=== PATIENT | male | born 1945 | race African-American/Black ===

== ENCOUNTER 2017-07-22 08:03 | Inpatient (IN) ==
[~2017-07-22 08:03] MED LIST: ASPIRIN 325 MG TABLET PO ONE; DIAZEPAM 5 MG TABLET PO ONE; MAGNESIUM SULF RIDER 2 GM in PREMIX 1 EACH IV PRN; POTASSIUM CHLORIDE RIDER 10 MEQ in PREMIX 1 EACH IV PRN; diphenhydrAMINE CAP 25 MG CAPSULE PO ONE
[2017-07-22] MEDS ORDERED: diphenhydrAMINE CAP 25 MG CAPSULE ONE (10:12)
[2017-07-22] MEDS ORDERED: DIAZEPAM 5 MG TABLET ONE (10:12)
[2017-07-22] MEDS: SODIUM CHLORIDE 0.9% 1,000 ML IV SCH (10:15)
--- NOTE | 2017-07-22 10:33 | XRay Report ---
XR chest 1V portable Indication: Respiratory preprocedure evaluation Comparison: 10 March 2008 Findings: The heart and mediastinum are normal in size and configuration. The pulmonary vascularity is normal in caliber. No lung infiltrates, effusions, pneumothorax or other abnormality is demonstrated. Impression: Normal chest x-ray PROCEDURE INTERPRETED AT [facility] DEPARTMENT OF RADIOLOGY Final Report Signed by: Dr. Cash Parker
[2017-07-22] MEDS ORDERED: NITROGLYCERIN DRIP 50 MG/250 ML BOTTLE IV ONE (11:46)
[2017-07-22] MEDS ORDERED: VERAPAMIL 5 MG/2 ML VIAL ONE (11:46)
[2017-07-22] MEDS ORDERED: LIDOCAINE 1% 20 ML VIAL ONE (11:46)
[2017-07-22] MEDS ORDERED: HEPARIN/NACL 0.9% 2 UNITS/ML 500 ML IV ONE ×2 (11:46→11:49)
[2017-07-22] MEDS ORDERED: HYDROmorphone 2 MG/1 ML VIAL ONE (11:57)
[2017-07-22] MEDS ORDERED: MIDAZOLAM 2 MG/2 ML VIAL ONE (11:57)
[2017-07-22] MEDS ORDERED: ENOXAPARIN 30 MG/0.3 ML SYRINGE ONE (12:11)
[2017-07-22] MEDS ORDERED: NITROGLYCERIN SL 0.4 MG TABLET SL PRN (12:25)
[2017-07-22] MEDS ORDERED: Tadalafil [Cialis] 5 MG PO PRN (12:25)
[2017-07-22] MEDS ORDERED: SODIUM CHLORIDE 0.9% 1,000 ML IV SCH (12:30)
--- NOTE | 2017-07-22 12:34 | Cardiac Catheterization ---
Date of Procedure:: 07/22/17 Procedure: CLINICAL HISTORY: Please see the scanned history and physical. The patient has multiple cardiac risk factors with an abnormal stress test and is undergoing cardiac catheterization at this time for definitive coronary assessment possible revascularization. PROCEDURES PERFORMED: 1. Right radial percutaneous arteriotomy 2. Left heart catheterization 3. Resting hemodynamics 4. Left ventriculography. 5. Coronary arteriography 6. Hemoband placement 7. Selective left subclavian angiogram. DESCRIPTION OF PROCEDURE: After obtaining informed consent, the patient was taken to the bottle labeler, prepped and draped in the usual sterile manner. We accessed the right radial artery using modified Seldinger technique in the usual fashion. We placed a 6-German slim sheath without difficulty. We then used a Tig catheter to engage the right coronary and left main coronary arteries to perform angiography in multiple orthogonal views. We also used this catheter to perform angiography of the left subclavian artery. There were no problems or complications during the procedure. We then used an angled pigtail catheter to perform a left heart catheterization with left ventriculogram and pressure measurement in the usual fashion. After removing the catheter, we placed a HemoBand and removed the sheath without difficulty. There were no problems during the case. HEMODYNAMICS: Please see the accompanying data sheet. CORONARIES: The left main coronary artery is a large-caliber vessel which trifurcates into the left anterior descending left circumflex and ramus intermedius branches. There is a distal 60% left main stenosis. The left circumflex coronary artery is a moderate-sized vessel which gives off a very high first obtuse marginal branch and moderate-sized second obtuse marginal branch and a small to moderate size third obtuse marginal branch. There appears to be significant stenosis in the proximal segment of the first obtuse marginal branch but this vessel was quite small. There are diffuse luminal irregularities of up to 30-40% throughout the circumflex system. The superior branch of the third obtuse marginal appears to have a 60-70% stenosis proximally. The ramus intermedius is a moderate size branch which bifurcates. There appears to be a 50-60% stenosis proximally. The left anterior descending is a moderate to large caliber vessel which gives off 2 moderate-sized diagonal branches. There are mild luminal irregularities in the LAD system but I do not see any significant focal obstruction and the distal vessel appears to be a good surgical target. The right coronary artery is a very large vessel which appears somewhat ectatic. There is a highly complex 90% stenosis proximally. There is diffuse severe disease through the proximal to mid segment of the vessel of up to 75-80 % stenosis. The posterior descending artery and posterior lateral branch appear to be good surgical targets. Left subclavian artery: This is a large vessel. There are mild luminal irregularities. The left internal mammary artery appears to be a large vessel which should be a good surgical conduit. LEFT VENTRICULOGRAPHY: Left ventriculogram shows left ventricular ejection fraction of approximately 60% with normal regional wall motion. IMPRESSION: 1. Significant left main and severe right coronary artery disease as described above. 2. Preserved left ventricular systolic function. 3. Normal left subclavian/left internal mammary artery. 4. History of hypertension, diabetes, and hyperlipidemia. PLAN: I think the patient will be best served coronary artery bypass surgery. I am going to discuss the case with cardiothoracic surgery and the patient. In the meantime we will continue medical management. Anesthesia: minimal conscious sedation Surgeon / Physician: Mike Guaman Estimated blood loss: minimal Condition: stable Disposition: floor - Medications / Follow-up
[2017-07-22 15:01] LABS: Calcium 8.8 MG/DL (8.5-10.1); Osmolality,Calculated 271.8 MOS/KG (273-304); Potassium 4.2 MMOL/L (3.5-5.1)
[2017-07-22 15:06] LABS: PT Patient Result 10.9 SECS
[2017-07-23] MEDS: SODIUM CHLORIDE 0.9% 1,000 ML IV SCH ×3 (06:08→12:01)
--- NOTE | 2017-07-23 06:25 | Cardiothoracic Progress Note ---
Cardiothoracic Subjective Interval history: Patient is a 72-year-old man with significant coronary disease by cardiac catheterization yesterday. He has been having symptoms of substernal chest discomfort which have been increasing over the past several weeks. Coronary bypass surgery has been recommended by Dr. Guaman and I agree completely with this recommendation. Plan is for surgery on Friday and I have discussed this with the patient and he is agreeable with proceeding. Exam (Progress Note) - Constitutional Vitals: Period Temp Pulse Resp BP Sys/Baltazar Pulse Ox Last 24 Hr 97.0 F-98.7 F 20- 16-18 113-164/60-75 93-100 Result/EKG - Labs CBC & BMP: 07/22/17 14:24 Labs: Laboratory Results - last 24 hr 07/22/17 07/22/17 07/22/17 14:24 14:24 14:24 INR 1.0 PT Patient/Control Mix 10.9 Circ Anticoag PTT 32.3 Sodium 137 Potassium 4.2 Chloride 106 Carbon Dioxide 24 Anion Gap 11.2 BUN 12 Creatinine 0.90 GFR Calculation 110 BUN/Creatinine Ratio 13.00 Glucose 81 Calculated Osmolality 271.8 L Calcium 8.8 Magnesium 2.0
[2017-07-23] MEDS ORDERED: DEXTROSE 50% 25 GM/50 ML VIAL IV PRN (06:26)
[2017-07-23] MEDS ORDERED: GLUCAGON 1 MG VIAL IM PRN (06:26)
[2017-07-23 06:42] LABS: ABG Base Excess 0.9 MMOL/L (-2.5-2.5); ABG HCO3 25.1 MMOL/L (20-26); ABG Oxygen Saturation 94.7 % (95-100); ABG PCO2 40.4 MM HG (35-48); ABG PH 7.409 (7.35-7.45); ABG PO2 74.3 MM HG (80-95); ABG TCO2 21.8 MMOL/L (23-27)
--- NOTE | 2017-07-23 07:38 | XRay Report ---
2 view chest. Indication: Coronary artery disease. Comparison: July 22, 2017. The heart is normal in size. The pulmonary vasculature is normal. There is a calcified granuloma at the left lung base. No consolidation, pneumothorax, or pleural effusion. Degenerative changes of the spinal column. Impression: Evidence of previous granulomatous disease. No acute abnormality. PROCEDURE INTERPRETED AT [facility] DEPARTMENT OF RADIOLOGY Final Report Signed by: Dr. Lazara Villarreal
--- NOTE | 2017-07-23 08:06 | EKG Report ---
Stationary ECG Study 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
[2017-07-23 08:34] LABS: Basophils % 0.4 % (0.0-0.8); Eosinophils # 0.2 10*3/uL (0.0-0.87); Eosinophils % 3.1 % (0.00-10.9); Hematocrit 47.1 VOL% (42.0-52.0); Immature Granulocytes % 0.2 %; Immature Granulocytes Absolute 0.01 #; Lymphocytes # 1.8 10*3/uL (1.4-4.0); Lymphocytes % 36.5 % (21.2-54.2); Mean Corpuscular Hemoglobin 30 PG (27-34); Mean Corpuscular Volume 88.5 FL (87-102); Monocytes # 0.5 10*3/uL (0.11-0.8); Monocytes % 10.6 % (1.7-12.7); Neutrophils # 2.4 10*3/uL (1.4-7.4); Neutrophils % 49.2 % (38.7-73.9); Platelet Count 183 T/CUMM (130-400); Red Blood Count 5.32 MC/CUMM (3.8-5.5); Red Cell Distribution Width 13.9 % (9.3-17.3); White Blood Count 4.9 T/CUMM (4-12)
[2017-07-23] MEDS: LISINOPRIL 20 MG TABLET PO SCH (08:52)
[2017-07-23] MEDS: ATORVASTATIN 40 MG TABLET PO SCH (08:52)
[2017-07-23] MEDS: MULTIVITAMIN (CENTRUM) TABLET PO SCH (08:52)
[2017-07-23] MEDS: amLODIPine 10 MG TABLET PO SCH (08:52)
[2017-07-23] MEDS: ASPIRIN 325 MG TABLET PO SCH (08:52)
[2017-07-23] MEDS: CHLORHEXIDINE 0.12% ORAL RINSE 60 ML BOTTLE SWISH/SPIT SCH ×2 (08:53→21:57)
[2017-07-23 08:59] LABS: Albumin 3.7 G/DL (3.4-5.0); Bilirubin,Total 1.3 MG/DL (0.2-1.0); Calcium 9.2 MG/DL (8.5-10.1); Osmolality,Calculated 275.7 MOS/KG (273-304); Potassium 4.4 MMOL/L (3.5-5.1); Total Protein 7.1 G/DL (6.4-8.3)
--- NOTE | 2017-07-23 11:39 | Cardiology Progress Note ---
<Jayda Parrish E - Last Filed: 07/23/17 11:40> Assessment and Plan - Time spent with patient Time spent with patient: Less than 30 minutes (1) Coronary artery disease Status: Acute Assessment and plan: See plan of care listed below. Current Visit: Yes (2) Hypertension Status: Chronic Assessment and plan: See plan of care listed below. Current Visit: Yes (3) HLD (hyperlipidemia) Status: Chronic Assessment and plan: See plan of care listed below. Current Visit: Yes (4) Diabetes mellitus Status: Chronic Assessment and plan: See plan of care listed below. Current Visit: Yes Cardiology - PN: Subj Interval history: Certified Hand Therapist: Dr. Guaman SUMMARY: Mr. Arvizu is a 72 year old male who was admitted as an outpatient on 07/22/17 for left heart catheterization due to symptoms of exertional angina and abnormal nuclear stress test suggesting cardiac ischemia. He has a history of hypertension, hyperlipidemia, and diabetes. Heart catheterization on 07/22/17 revealed significant left main and severe right coronary artery disease with preserved left ventricular systolic function and normal left subclavian/left internal mammary artery. CV surgery was consulted to see him. Recent echocardiogram done on 07/16/17 revealed EF 55%, normal diastolic function, mild LVH, trace MR, trace MA. JULY 23, 2017 UPDATE: Mr. Arvizu is doing well this morning. He is planned for surgery on Friday with Dr. Parekh. Labs and vital signs are stable at this time. He denies complaints of chest pain or shortness of breath. Continue aspirin, OSVALDO, statin. Will start low dose beta karley with hold parameters. He has been in sinus rhythm with rates in the 60s. Right radial cath site is without bleeding or hematoma, pulse 3+. Dr. Martinez to follow with further plan and addendum. ASSESSMENT/PLAN: 1. CORONARY ARTERY DISEASE - Heart catheterization on 07/22/17 revealed significant left main and severe right coronary artery disease with preserved left ventricular systolic function and normal left subclavian/left internal mammary artery. CV surgery was consulted to see him and he is planned for surgery on Friday. Continue aspirin, OSVALDO, statin. Will start low dose beta karley with hold parameters. 2. HYPERTENSION - Currently well controlled. Will continue to monitor and adjust accordingly. 3. HYPERLIPIDEMIA - Continue lipid lowering agent. Will check lipid panel in AM. 4. DIABETES MELLITUS - Continue to hold Metformin following cath. He has been started on accuchecks ACHS with sliding scale coverage. Exam (Progress Note) - Constitutional Vitals: Period Temp Pulse Resp BP Sys/Baltazar Pulse Ox Last 24 Hr 97.5 F-98.7 F 60-70 16-18 113-164/60-75 93-100 Exam: General appearance: Pleasant and cooperative. Overweight, no acute distress. Head exam: Present: normal inspection, normocephalic, atraumatic. Absent: hematoma, laceration Eye exam: Present: EOMI. Absent: conjunctival injection, nystagmus, periorbital swelling, scleral icterus, laceration to eyelids Pupils: Present: PERRL. Absent: constricted, dilated, fixed, irregular, unequal ENT exam: Present: normal exam, normal external ear exam Neck exam: Present: normal inspection. Absent: lymphadenopathy, meningismus, tenderness, thyromegaly, carotid bruit Respiratory exam: Present: clear to auscultation bilaterally. Absent: accessory muscle use, chest wall tenderness, rales, rhonchi, wheezing. Cardiovascular exam: Present: regular rate and rhythm, systolic murmur. Absent : gallop, JVD, rubs GI/Abdominal exam: Present: normal bowel sounds, soft. Absent: distended, firm , guarding, hernia, mass, tenderness, rebound. Extremities exam: Present: normal inspection, normal capillary refill. Upper extremity pulses 2+. Lower extremity pulses 2+. Absent: calf tenderness, edema Right wrist: Dressing dry and intact. No bleeding or hematoma at site. Right radial pulse 3+. Musculoskeletal: Present: No Fluid Collection, No Pain, Normal Range of Motion Back exam: Present: normal inspection. Absent: muscle spasm, vertebral tenderness Neurological exam: Present: alert, oriented X3, grossly intact without resting or essential tremor Psychiatric exam: Present: normal affect, normal mood Skin exam: Present: normal color, warm, dry, intact. Absent: cyanosis, diaphoretic, rash, urticaria Result/EKG - Labs CBC & BMP: 07/23/17 08:28 07/23/17 08:28 Lab Results: I have reviewed the past 24 hour labs Labs: Laboratory Results - last 24 hr 07/22/17 07/22/17 07/22/17 14:24 14:24 14:24 WBC RBC Hgb Hct MCV MCH MCHC RDW Plt Count MPV Neut % (Auto) Lymph % (Auto) Garrett % (Auto) Eos % (Auto) Baso % (Auto) Neut # (Auto) Lymph # (Auto) Garrett # (Auto) Eos # (Auto) Baso # (Auto) Immature Gran % Nucleated RBC % Immature Gran # Nucleated RBCs # Immature Plt Fraction INR 1.0 PT Patient/Control Mix 10.9 Circ Anticoag PTT 32.3 ABG pH ABG pCO2 ABG pO2 ABG HCO3 ABG Total CO2 ABG O2 Saturation ABG Base Excess Sodium 137 Potassium 4.2 Chloride 106 Carbon Dioxide 24 Anion Gap 11.2 BUN 12 Creatinine 0.90 GFR Calculation 110 BUN/Creatinine Ratio 13.00 Glucose 81 POC Glucose Calculated Osmolality 271.8 L Calcium 8.8 Magnesium 2.0 Total Bilirubin AST ALT Alkaline Phosphatase Total Protein Albumin Globulin Albumin/Globulin Ratio 07/23/17 07/23/17 07/23/17 06:38 08:14 08:28 WBC 4.9 RBC 5.32 Hgb 16.0 Hct 47.1 MCV 88.5 MCH 30 MCHC 34.0 RDW 13.9 Plt Count 183 MPV 11.0 Neut % (Auto) 49.2 Lymph % (Auto) 36.5 Garrett % (Auto) 10.6 Eos % (Auto) 3.1 Baso % (Auto) 0.4 Neut # (Auto) 2.4 Lymph # (Auto) 1.8 Garrett # (Auto) 0.5 Eos # (Auto) 0.2 Baso # (Auto) 0.0 Immature Gran % 0.2 Nucleated RBC % 0.0 Immature Gran # 0.01 Nucleated RBCs # 0.00 Immature Plt Fraction 0.0 INR PT Patient/Control Mix Circ Anticoag PTT ABG pH 7.409 ABG pCO2 40.4 ABG pO2 74.3 L ABG HCO3 25.1 ABG Total CO2 21.8 L ABG O2 Saturation 94.7 L ABG Base Excess 0.9 Sodium Potassium Chloride Carbon Dioxide Anion Gap BUN Creatinine GFR Calculation BUN/Creatinine Ratio Glucose POC Glucose 135 H Calculated Osmolality Calcium Magnesium Total Bilirubin AST ALT Alkaline Phosphatase Total Protein Albumin Globulin Albumin/Globulin Ratio 07/23/17 08:28 WBC RBC Hgb Hct MCV MCH MCHC RDW Plt Count MPV Neut % (Auto) Lymph % (Auto) Garrett % (Auto) Eos % (Auto) Baso % (Auto) Neut # (Auto) Lymph # (Auto) Garrett # (Auto) Eos # (Auto) Baso # (Auto) Immature Gran % Nucleated RBC % Immature Gran # Nucleated RBCs # Immature Plt Fraction INR PT Patient/Control Mix Circ Anticoag PTT ABG pH ABG pCO2 ABG pO2 ABG HCO3 ABG Total CO2 ABG O2 Saturation ABG Base Excess Sodium 138 Potassium 4.4 Chloride 104 Carbon Dioxide 28 Anion Gap 10.4 BUN 11 Creatinine 0.90 GFR Calculation 112 BUN/Creatinine Ratio 12.00 Glucose 130 H POC Glucose Calculated Osmolality 275.7 Calcium 9.2 Magnesium Total Bilirubin 1.30 H AST 21 ALT 34 Alkaline Phosphatase 69 Total Protein 7.1 Albumin 3.7 Globulin 3.4 Albumin/Globulin Ratio 1.0 L - EKG EKG results: interpreted by me, sinus rhythm Quality Measures - VTE Contraindication to Pharmacological VTE Prophylaxis: High Risk of Bleeding <Cecelia Martinez - Last Filed: 07/23/17 15:16> Assessment and Plan (1) Coronary artery disease Status: Acute Current Visit: Yes (2) Hypertension Status: Chronic Current Visit: Yes (3) HLD (hyperlipidemia) Status: Chronic Current Visit: Yes (4) Diabetes mellitus Status: Chronic Current Visit: Yes (5) Unspecified sleep apnea Status: Acute Current Visit: Yes Cardiology - PN: Subj Interval history: Mr. Arvizu is seen and examined today. His patient Dr. Guaman schedule for coronary bypass grafting. I will discontinue his Cialis. He has no complaints and is doing quite well. I reviewed his films has severe diffuse right coronary disease distal left main disease and also some circumflex disease. The patient is asymptomatic at this time. His hypertension is well controlled. He is on a statin and aspirin. Exam (Progress Note) - Constitutional Vitals: Period Temp Pulse Resp BP Sys/Baltazar Pulse Ox Last 24 Hr 97.5 F-98.7 F 60-70 16-18 113-164/62-80 93-100 Exam: S1-S2 no gallop. Lungs are clear extremities are unremarkable cath site looks good in the right radial artery remainder as above Result/EKG - Labs CBC & BMP: 07/23/17 08:28 07/23/17 08:28 Labs: Laboratory Results - last 24 hr 07/22/17 07/23/17 07/23/17 14:24 06:38 08:14 WBC RBC Hgb Hct MCV MCH MCHC RDW Plt Count MPV Neut % (Auto) Lymph % (Auto) Garrett % (Auto) Eos % (Auto) Baso % (Auto) Neut # (Auto) Lymph # (Auto) Garrett # (Auto) Eos # (Auto) Baso # (Auto) Immature Gran % Nucleated RBC % Immature Gran # Nucleated RBCs # Immature Plt Fraction Circ Anticoag PTT 32.3 ABG pH 7.409 ABG pCO2 40.4 ABG pO2 74.3 L ABG HCO3 25.1 ABG Total CO2 21.8 L ABG O2 Saturation 94.7 L ABG Base Excess 0.9 Sodium Potassium Chloride Carbon Dioxide Anion Gap BUN Creatinine GFR Calculation BUN/Creatinine Ratio Glucose POC Glucose 135 H Calculated Osmolality Calcium Total Bilirubin AST ALT Alkaline Phosphatase Total Protein Albumin Globulin Albumin/Globulin Ratio 07/23/17 07/23/17 07/23/17 08:28 08:28 12:00 WBC 4.9 RBC 5.32 Hgb 16.0 Hct 47.1 MCV 88.5 MCH 30 MCHC 34.0 RDW 13.9 Plt Count 183 MPV 11.0 Neut % (Auto) 49.2 Lymph % (Auto) 36.5 Garrett % (Auto) 10.6 Eos % (Auto) 3.1 Baso % (Auto) 0.4 Neut # (Auto) 2.4 Lymph # (Auto) 1.8 Garrett # (Auto) 0.5 Eos # (Auto) 0.2 Baso # (Auto) 0.0 Immature Gran % 0.2 Nucleated RBC % 0.0 Immature Gran # 0.01 Nucleated RBCs # 0.00 Immature Plt Fraction 0.0 Circ Anticoag PTT ABG pH ABG pCO2 ABG pO2 ABG HCO3 ABG Total CO2 ABG O2 Saturation ABG Base Excess Sodium 138 Potassium 4.4 Chloride 104 Carbon Dioxide 28 Anion Gap 10.4 BUN 11 Creatinine 0.90 GFR Calculation 112 BUN/Creatinine Ratio 12.00 Glucose 130 H POC Glucose 144 H Calculated Osmolality 275.7 Calcium 9.2 Total Bilirubin 1.30 H AST 21 ALT 34 Alkaline Phosphatase 69 Total Protein 7.1 Albumin 3.7 Globulin 3.4 Albumin/Globulin Ratio 1.0 L
--- NOTE | 2017-07-23 14:16 | Sleep Medicine Consult ---
Assessment and Plan (1) Unspecified sleep apnea Status: Acute Assessment and plan: Mr. Arvizu has some symptoms suggestive for obstructive sleep apnea. I reviewed SCOTT as well as the testing and treatments that are recommended. Given his history of not only hypertension and diabetes but also ischemic heart disease, I recommend further evaluation to rule out any underlying sleep disorder as this could contribute to worsening of his health. He verbalized understanding and does wish to proceed with testing. I will order an HSAT for tonight and follow up tomorrow with those results. Current Visit: Yes History of Present Illness Chief complaint: hx of snoring History of present illness: Mr. Arvizu is a 72 year old male who was admitted for outpatient heart catheterization on July 22. His findings were consistent for ischemic heart disease and he is scheduled for coronary artery bypass grafting on Friday. Sleep medicine was consulted after positive screening for sleep apnea. He had a score of 5 out of 8 on the stop bang sleep questionnaire. He is accompanied today by his granddaughter who is at his bedside. He is a pleasant male sitting upright on the sofa. He admits to long history of snoring but denies ever awakening with feelings of shortness of breath or gasping for air. He is able to sleep supine or on one pillow and denies any orthopnea. He typically goes to bed around 11 PM and awakens at 6:30 AM. Throughout the night , he will typically awaken only 1 hour 2 times to urinate. He is able to return to sleep quickly. Each morning, he is up he awakens refreshed and denies any fatigue or sleepiness throughout the day. He has a normal [place] sleepiness score of 7. He lives alone and admits to being very "active" throughout the day. He has never required daily naps but occasionally will "rest his eyes" for a few minutes. He has no known history of sleep disorders in his family. His medical history is significant for ischemic heart disease, hypertension, diabetes and hyperlipidemia. He denies any chest pain or discomfort since his heart catheterization yesterday. Home Medications Medication Instructions Recorded Confirmed Type Amlodipine/Atorvastatin 1 each PO DAILY 07/21/17 07/22/17 History [Amlodipine-Atorvast 10-40 mg] Aspirin Tab 325 mg PO DAILY 07/21/17 07/22/17 History Empagliflozin [Jardiance] 25 mg PO DAILY 07/21/17 07/22/17 History Folic Acid/Multivit-Min/Lutein 1 tablet PO DAILY 07/21/17 07/22/17 History [Centrum Silver Chew Tab] Lisinopril 20 mg PO DAILY 07/21/17 07/22/17 History Metformin HCl [Glucophage] 1,000 mg PO BID 07/21/17 07/22/17 History Nitroglycerin Sl Tab [Nitrostat] 0.4 mg SL Q5M PRN 07/21/17 07/22/17 History Tadalafil [Cialis] 5 mg PO DAILY PRN 07/21/17 07/22/17 History Allergies Allergy/AdvReac Type Severity Reaction Status Date / Time No Known Allergies Allergy Verified 06/19/15 09:32 - Constitutional Constitutional: Absent: daytime sleepiness, fatigue, headache(s), stops breathing during sleep - EENT Nose, mouth and throat: Absent: nasal congestion, sinus pressure - Cardiovascular Cardiovascular: Present: chest pain at rest, dyspnea on exertion. Absent: edema , radiating jaw, neck or arm pain, orthopnea, palpitations - Respiratory Respiratory: Present: snoring. Absent: wheezing, pain on inspiration - Gastrointestinal Gastrointestinal: Present: heartburn. Absent: abdominal pain, bloating, constipation, diarrhea - Genitourinary Genitourinary: Present: urinary frequency (1-2 per night) - Musculoskeletal Musculoskeletal: Present: arthralgias. Absent: joint swelling, muscle weakness - Neurological Neurological: Absent: convulsions, dizziness, memory loss - Psychiatric Psychiatric: Absent: anxiety, depression Exam (Pulmonay) H&P - Constitutional Vitals: Period Temp Pulse Resp BP Sys/Baltazar Pulse Ox Last 24 Hr 97.5 F-98.7 F 60-70 16-18 113-164/60-80 93-100 General appearance: normal weight - Head Head exam: Present: normocephalic, atraumatic - Eye Pupils: Present: ROSE - ENT ENT exam: Present: other (Mallampati class III/ Neck circ 18") - Expanded ENT Exam ENT Exam Throat exam: Absent: post pharyngeal edema, post pharyngeal erythema - Neck Neck exam: Absent: lymphadenopathy, thyromegaly - Respiratory Respiratory exam: Present: clear to auscultation bilaterally. Absent: rhonchi, wheezes - Cardiovascular Cardiovascular exam: Present: regular rate and rhythm, systolic murmur. Absent : gallop, rubs - GI/Abdominal GI/Abdominal exam: Present: normal bowel sounds, soft. Absent: distended, tenderness - Extremities Exam Extremities exam: Present: normal capillary refill, full ROM. Absent: edema - Neurological Exam Neurological exam: Present: alert, oriented X3, normal gait - Psychiatric Psychiatric exam: Present: normal affect, normal mood. Absent: anxious - Skin Skin exam: Present: warm, dry Medical,Surgical,& Family Hx - Medical History Cardio: History of: Hypertension Neurology: No history of: Seizures Endocrine: History of: Diabetes Mellitus (NIDDM), Dyslipidemia - Surgical History Cardiac Surgeries: Sugical HX of: Cardiac Catheterization HEENT Surgeries: Surgical HX of: Eye Surgery Orthopedic Surgeries: Surgical HX of;: Orthopedic Surgery (RIGHT TOTAL KNEE/ LEFT KNEE SCOPE, CARPAL TUNNEL), Total Knee Replacement - Social History Smoking Status: Former smoker Frequency of Alcohol Use: Occasionally Type of Drug Use: None Results - Labs CBC & BMP: 07/23/17 08:28 07/23/17 08:28 Quality Measures - VTE Contraindication to Pharmacological VTE Prophylaxis: High Risk of Bleeding
[2017-07-23] MEDS: INSULIN LISPRO 100 UNIT/ML SUBCUT SCH ×2 (15:54→21:56)
[2017-07-24 04:40] LABS: Basophils % 0.6 % (0.0-0.8); Eosinophils # 0.2 10*3/uL (0.0-0.87); Eosinophils % 3.5 % (0.00-10.9); Hematocrit 43.8 VOL% (42.0-52.0); Hemoglobin 14.9 GM/DL (14.0-18.0); Immature Granulocytes % 0.2 %; Immature Granulocytes Absolute 0.01 #; Lymphocytes # 2.1 10*3/uL (1.4-4.0); Lymphocytes % 39.9 % (21.2-54.2); Mean Corpuscular Hemoglobin 30 PG (27-34); Mean Corpuscular Volume 87.4 FL (87-102); Mean Platelet Volume 11.5 FL (9.6-12.0); Monocytes # 0.6 10*3/uL (0.11-0.8); Monocytes % 11.4 % (1.7-12.7); Neutrophils # 2.3 10*3/uL (1.4-7.4); Neutrophils % 44.4 % (38.7-73.9); Platelet Count 178 T/CUMM (130-400); Red Blood Count 5.01 MC/CUMM (3.8-5.5); Red Cell Distribution Width 13.6 % (9.3-17.3); White Blood Count 5.2 T/CUMM (4-12)
[2017-07-24 05:07] LABS: Calcium 8.7 MG/DL (8.5-10.1); Magnesium 2.1 MG/DL (1.8-2.4); Osmolality,Calculated 281.4 MOS/KG (273-304); Potassium 4.6 MMOL/L (3.5-5.1)
[2017-07-24 05:50] LABS: Risk Ratio 2.75
--- NOTE | 2017-07-24 06:16 | Cardiothoracic Progress Note ---
Cardiothoracic Subjective Interval history: Patient is ready for surgery Friday morning. Exam (Progress Note) - Constitutional Vitals: Period Temp Pulse Resp BP Sys/Baltazar Pulse Ox Last 24 Hr 97.5 F-98.9 F 64-86 18-18 124-148/62-80 97-98 Result/EKG - Labs CBC & BMP: 07/24/17 03:47 07/24/17 03:47 Labs: Laboratory Results - last 24 hr 07/23/17 07/23/17 07/23/17 06:38 08:14 08:28 WBC 4.9 RBC 5.32 Hgb 16.0 Hct 47.1 MCV 88.5 MCH 30 MCHC 34.0 RDW 13.9 Plt Count 183 MPV 11.0 Neut % (Auto) 49.2 Lymph % (Auto) 36.5 [place] % (Auto) 10.6 Eos % (Auto) 3.1 Baso % (Auto) 0.4 Neut # (Auto) 2.4 Lymph # (Auto) 1.8 [place] # (Auto) 0.5 Eos # (Auto) 0.2 Baso # (Auto) 0.0 Immature Gran % 0.2 Nucleated RBC % 0.0 Immature Gran # 0.01 Nucleated RBCs # 0.00 Immature Plt Fraction 0.0 ABG pH 7.409 ABG pCO2 40.4 ABG pO2 74.3 L ABG HCO3 25.1 ABG Total CO2 21.8 L ABG O2 Saturation 94.7 L ABG Base Excess 0.9 Sodium Potassium Chloride Carbon Dioxide Anion Gap BUN Creatinine GFR Calculation BUN/Creatinine Ratio Glucose POC Glucose 135 H Calculated Osmolality Calcium Magnesium Total Bilirubin AST ALT Alkaline Phosphatase Total Protein Albumin Globulin Albumin/Globulin Ratio Triglycerides Cholesterol LDL Cholesterol VLDL Cholesterol HDL Cholesterol Heart Disease Risk Ratio 07/23/17 07/23/17 07/23/17 08:28 12:00 15:30 WBC RBC Hgb Hct MCV MCH MCHC RDW Plt Count MPV Neut % (Auto) Lymph % (Auto) [place] % (Auto) Eos % (Auto) Baso % (Auto) Neut # (Auto) Lymph # (Auto) [place] # (Auto) Eos # (Auto) Baso # (Auto) Immature Gran % Nucleated RBC % Immature Gran # Nucleated RBCs # Immature Plt Fraction ABG pH ABG pCO2 ABG pO2 ABG HCO3 ABG Total CO2 ABG O2 Saturation ABG Base Excess Sodium 138 Potassium 4.4 Chloride 104 Carbon Dioxide 28 Anion Gap 10.4 BUN 11 Creatinine 0.90 GFR Calculation 112 BUN/Creatinine Ratio 12.00 Glucose 130 H POC Glucose 144 H 105 Calculated Osmolality 275.7 Calcium 9.2 Magnesium Total Bilirubin 1.30 H AST 21 ALT 34 Alkaline Phosphatase 69 Total Protein 7.1 Albumin 3.7 Globulin 3.4 Albumin/Globulin Ratio 1.0 L Triglycerides Cholesterol LDL Cholesterol VLDL Cholesterol HDL Cholesterol Heart Disease Risk Ratio 07/23/17 07/24/17 07/24/17 19:19 03:47 03:47 WBC 5.2 RBC 5.01 Hgb 14.9 Hct 43.8 MCV 87.4 MCH 30 MCHC 34.0 RDW 13.6 Plt Count 178 MPV 11.5 Neut % (Auto) 44.4 Lymph % (Auto) 39.9 [place] % (Auto) 11.4 Eos % (Auto) 3.5 Baso % (Auto) 0.6 Neut # (Auto) 2.3 Lymph # (Auto) 2.1 [place] # (Auto) 0.6 Eos # (Auto) 0.2 Baso # (Auto) 0.0 Immature Gran % 0.2 Nucleated RBC % 0.0 Immature Gran # 0.01 Nucleated RBCs # 0.00 Immature Plt Fraction 0.0 ABG pH ABG pCO2 ABG pO2 ABG HCO3 ABG Total CO2 ABG O2 Saturation ABG Base Excess Sodium 140 Potassium 4.6 Chloride 105 Carbon Dioxide 29 Anion Gap 10.6 BUN 14 Creatinine 1.00 GFR Calculation 99 BUN/Creatinine Ratio 14.00 Glucose 138 H POC Glucose 197 H Calculated Osmolality 281.4 Calcium 8.7 Magnesium 2.1 Total Bilirubin AST ALT Alkaline Phosphatase Total Protein Albumin Globulin Albumin/Globulin Ratio Triglycerides Cholesterol LDL Cholesterol VLDL Cholesterol HDL Cholesterol Heart Disease Risk Ratio 07/24/17 03:47 WBC RBC Hgb Hct MCV MCH MCHC RDW Plt Count MPV Neut % (Auto) Lymph % (Auto) [place] % (Auto) Eos % (Auto) Baso % (Auto) Neut # (Auto) Lymph # (Auto) [place] # (Auto) Eos # (Auto) Baso # (Auto) Immature Gran % Nucleated RBC % Immature Gran # Nucleated RBCs # Immature Plt Fraction ABG pH ABG pCO2 ABG pO2 ABG HCO3 ABG Total CO2 ABG O2 Saturation ABG Base Excess Sodium Potassium Chloride Carbon Dioxide Anion Gap BUN Creatinine GFR Calculation BUN/Creatinine Ratio Glucose POC Glucose Calculated Osmolality Calcium Magnesium Total Bilirubin AST ALT Alkaline Phosphatase Total Protein Albumin Globulin Albumin/Globulin Ratio Triglycerides 60 Cholesterol 151 LDL Cholesterol 82.0 VLDL Cholesterol 12.0 HDL Cholesterol 55 Heart Disease Risk Ratio 2.75 Quality Measures - VTE Contraindication to Pharmacological VTE Prophylaxis: High Risk of Bleeding
[2017-07-24] MEDS: SODIUM CHLORIDE 0.9% 1,000 ML IV SCH (06:40)
[2017-07-24] MEDS: ASPIRIN 325 MG TABLET PO SCH (08:29)
[2017-07-24] MEDS: ATORVASTATIN 40 MG TABLET PO SCH (08:29)
[2017-07-24] MEDS: amLODIPine 10 MG TABLET PO SCH (08:29)
[2017-07-24] MEDS: INSULIN LISPRO 100 UNIT/ML SUBCUT SCH ×4 (08:30→21:40)
[2017-07-24] MEDS: MULTIVITAMIN (CENTRUM) TABLET PO SCH (08:30)
[2017-07-24] MEDS: LISINOPRIL 20 MG TABLET PO SCH (08:30)
[2017-07-24] MEDS: CHLORHEXIDINE 4% SOLN 118 ML BOTTLE TOP SCH ×3 (08:31→21:39)
[2017-07-24] MEDS: CHLORHEXIDINE 0.12% ORAL RINSE 60 ML BOTTLE SWISH/SPIT SCH ×2 (08:31→21:59)
--- NOTE | 2017-07-24 11:41 | Cardiology Progress Note ---
Assessment and Plan - Time spent with patient Time spent with patient: Less than 30 minutes (1) Coronary artery disease Status: Acute Assessment and plan: Heart catheterization on 07/22/17 revealed significant left main and severe right coronary artery disease with preserved left ventricular systolic function and normal left subclavian/left internal mammary artery. CV surgery was consulted to see him and he is planned for surgery on Friday. Continue aspirin, OSVALDO, statin. Current Visit: Yes (2) Hypertension Status: Chronic Assessment and plan: Currently well controlled. Will continue to monitor and adjust accordingly. Current Visit: Yes (3) HLD (hyperlipidemia) Status: Chronic Assessment and plan: Continue lipid lowering agent. Lipid panel revealed triglycerides 60, cholesterol 151, LDL 82, HDL 55. Current Visit: Yes (4) Diabetes mellitus Status: Chronic Assessment and plan: Continue to hold Metformin following cath. He has been started on accuchecks ACHS with sliding scale coverage. Current Visit: Yes Cardiology - PN: Subj Interval history: Sludge Filtration Attendant: Dr. Guaman SUMMARY: Mr. Arvizu is a 72 year old male who was admitted as an outpatient on 07/22/17 for left heart catheterization due to symptoms of exertional angina and abnormal nuclear stress test suggesting cardiac ischemia. He has a history of hypertension, hyperlipidemia, and diabetes. Heart catheterization on 07/22/17 revealed significant left main and severe right coronary artery disease with preserved left ventricular systolic function and normal left subclavian/left internal mammary artery. CV surgery was consulted to see him. Recent echocardiogram done on 07/16/17 revealed EF 55%, normal diastolic function, mild LVH, trace MR, trace NH. JULY 24, 2017 UPDATE: Mr. Arvizu is doing well this morning. He has no complaints this morning. He is planned for surgery on Friday with Dr. Parekh. Labs and vital signs are stable at this time. He denies complaints of chest pain or shortness of breath. He has several family members present at the bedside. Continue aspirin, OSVALDO, statin. Right radial cath site is without bleeding or hematoma, pulse 3+. Dr. Martinez to follow with further plan and addendum. ASSESSMENT/PLAN: 1. CORONARY ARTERY DISEASE - Heart catheterization on 07/22/17 revealed significant left main and severe right coronary artery disease with preserved left ventricular systolic function and normal left subclavian/left internal mammary artery. CV surgery was consulted to see him and he is planned for surgery on Friday. Continue aspirin, OSVALDO, statin. 2. HYPERTENSION - Currently well controlled. Will continue to monitor and adjust accordingly. 3. HYPERLIPIDEMIA - Continue lipid lowering agent. Lipid panel revealed triglycerides 60, cholesterol 151, LDL 82, HDL 55. 4. DIABETES MELLITUS - Continue to hold Metformin following cath. He has been started on accuchecks ACHS with sliding scale coverage. Exam (Progress Note) - Constitutional Vitals: Period Temp Pulse Resp BP Sys/Baltazar Pulse Ox Last 24 Hr 97.5 F-98.9 F 64-86 18-18 121-148/70-80 97-98 Exam: General appearance: Pleasant and cooperative. Overweight, no acute distress. Head exam: Present: normal inspection, normocephalic, atraumatic. Absent: hematoma, laceration Eye exam: Present: EOMI. Absent: conjunctival injection, nystagmus, periorbital swelling, scleral icterus, laceration to eyelids Pupils: Present: PERRL. Absent: constricted, dilated, fixed, irregular, unequal ENT exam: Present: normal exam, normal external ear exam Neck exam: Present: normal inspection. Absent: lymphadenopathy, meningismus, tenderness, thyromegaly, carotid bruit Respiratory exam: Present: clear to auscultation bilaterally. Absent: accessory muscle use, chest wall tenderness, rales, rhonchi, wheezing. Cardiovascular exam: Present: regular rate and rhythm, systolic murmur. Absent : gallop, JVD, rubs GI/Abdominal exam: Present: normal bowel sounds, soft. Absent: distended, firm , guarding, hernia, mass, tenderness, rebound. Extremities exam: Present: normal inspection, normal capillary refill. Upper extremity pulses 2+. Lower extremity pulses 2+. Absent: calf tenderness, edema Right wrist: Dressing dry and intact. No bleeding or hematoma at site. Right radial pulse 3+. Musculoskeletal: Present: No Fluid Collection, No Pain, Normal Range of Motion Back exam: Present: normal inspection. Absent: muscle spasm, vertebral tenderness Neurological exam: Present: alert, oriented X3, grossly intact without resting or essential tremor Psychiatric exam: Present: normal affect, normal mood Skin exam: Present: normal color, warm, dry, intact. Absent: cyanosis, diaphoretic, rash, urticaria Result/EKG - Labs CBC & BMP: 07/24/17 03:47 07/24/17 03:47 Lab Results: I have reviewed the past 24 hour labs Labs: Laboratory Results - last 24 hr 07/23/17 07/23/17 07/23/17 12:00 15:30 19:19 WBC RBC Hgb Hct MCV MCH MCHC RDW Plt Count MPV Neut % (Auto) Lymph % (Auto) [place] % (Auto) Eos % (Auto) Baso % (Auto) Neut # (Auto) Lymph # (Auto) [place] # (Auto) Eos # (Auto) Baso # (Auto) Immature Gran % Nucleated RBC % Immature Gran # Nucleated RBCs # Immature Plt Fraction Sodium Potassium Chloride Carbon Dioxide Anion Gap BUN Creatinine GFR Calculation BUN/Creatinine Ratio Glucose POC Glucose 144 H 105 197 H Calculated Osmolality Calcium Magnesium Triglycerides Cholesterol LDL Cholesterol VLDL Cholesterol HDL Cholesterol Heart Disease Risk Ratio Blood Type Antibody Screen Crossmatch 07/24/17 07/24/17 07/24/17 03:47 03:47 03:47 WBC 5.2 RBC 5.01 Hgb 14.9 Hct 43.8 MCV 87.4 MCH 30 MCHC 34.0 RDW 13.6 Plt Count 178 MPV 11.5 Neut % (Auto) 44.4 Lymph % (Auto) 39.9 [place] % (Auto) 11.4 Eos % (Auto) 3.5 Baso % (Auto) 0.6 Neut # (Auto) 2.3 Lymph # (Auto) 2.1 [place] # (Auto) 0.6 Eos # (Auto) 0.2 Baso # (Auto) 0.0 Immature Gran % 0.2 Nucleated RBC % 0.0 Immature Gran # 0.01 Nucleated RBCs # 0.00 Immature Plt Fraction 0.0 Sodium 140 Potassium 4.6 Chloride 105 Carbon Dioxide 29 Anion Gap 10.6 BUN 14 Creatinine 1.00 GFR Calculation 99 BUN/Creatinine Ratio 14.00 Glucose 138 H POC Glucose Calculated Osmolality 281.4 Calcium 8.7 Magnesium 2.1 Triglycerides 60 Cholesterol 151 LDL Cholesterol 82.0 VLDL Cholesterol 12.0 HDL Cholesterol 55 Heart Disease Risk Ratio 2.75 Blood Type Antibody Screen Crossmatch 07/24/17 07/24/17 07/24/17 03:47 08:09 Unknown WBC RBC Hgb Hct MCV MCH MCHC RDW Plt Count MPV Neut % (Auto) Lymph % (Auto) [place] % (Auto) Eos % (Auto) Baso % (Auto) Neut # (Auto) Lymph # (Auto) [place] # (Auto) Eos # (Auto) Baso # (Auto) Immature Gran % Nucleated RBC % Immature Gran # Nucleated RBCs # Immature Plt Fraction Sodium Potassium Chloride Carbon Dioxide Anion Gap BUN Creatinine GFR Calculation BUN/Creatinine Ratio Glucose POC Glucose 121 H Calculated Osmolality Calcium Magnesium Triglycerides Cholesterol LDL Cholesterol VLDL Cholesterol HDL Cholesterol Heart Disease Risk Ratio Blood Type A POSITIVE A POSITIVE Antibody Screen Negative Crossmatch See Detail - EKG EKG results: interpreted by me, sinus rhythm Quality Measures - VTE Contraindication to Pharmacological VTE Prophylaxis: High Risk of Bleeding
--- NOTE | 2017-07-24 13:24 | Sleep Medicine Progress Note ---
Assessment and Plan (1) Obstructive sleep apnea Status: Acute Assessment and plan: This patient has evidence of severe obstructive sleep apnea was 74 seconds apneas and O2 desaturation into the low 60s. We will initiate auto titration CPAP tonight. I reviewed his findings with him and his family to their understanding. Sleep Lab will come up and fit him with a CPAP mask and set him up on auto for usage tonight. Current Visit: Yes Sleep Medicine Subjective Interval history: Patient did undergo home sleep testing last night and had a respiratory event index of 16.8. He had apneas as long as 74 seconds with desaturations into the low 60s. I suspect that his sleep apnea is much more severe than what his HST revealed. This patient absolutely needs to be utilizing CPAP given the severity of his sleep apnea and underlying coronary artery disease. Exam (Progress Note) - Constitutional Vitals: Period Temp Pulse Resp BP Sys/Baltazar Pulse Ox Last 24 Hr 97.5 F-98.9 F 64-86 18-20 121-148/70-80 97-98 Exam: He is alert and responsive in no acute distress. Pupils equal round reactive to light and accommodation. Extraocular movements intact. Oropharynx with a class III Mallampati exam. Neck supple without adenopathy or thyromegaly. No supraclavicular adenopathy is noted. Chest with good air movement and no focal wheeze or rhonchi. Cardiac exam reveals a regular rhythm without murmur or gallop. Abdomen soft nontender. Extremities without edema. Results - Labs CBC & BMP: 07/24/17 03:47 07/24/17 03:47 Lab Results: I have reviewed the past 24 hour labs
[2017-07-24] MEDS: metFORMIN 500 MG TABLET PO SCH (21:58)
[2017-07-25] MEDS ORDERED: PAPAVERINE 60 MG/2 ML VIAL ONE ×2 (04:37→19:51)
[2017-07-25] MEDS ORDERED: VANCOMYCIN 1,000 MG VIAL ONE ×4 (04:37→19:29)
[2017-07-25] MEDS: CHLORHEXIDINE 4% SOLN 118 ML BOTTLE TOP SCH (04:46)
[2017-07-25 04:59] LABS: Basophils % 0.6 % (0.0-0.8); Eosinophils # 0.2 10*3/uL (0.0-0.87); Eosinophils % 3.2 % (0.00-10.9); Hemoglobin 15.6 GM/DL (14.0-18.0); Immature Granulocytes % 0.2 %; Immature Granulocytes Absolute 0.01 #; Lymphocytes # 2.3 10*3/uL (1.4-4.0); Lymphocytes % 42.3 % (21.2-54.2); Mean Corpuscular HGB Conc 33.9 GM/DL (32-36); Mean Corpuscular Hemoglobin 30 PG (27-34); Mean Corpuscular Volume 87.6 FL (87-102); Mean Platelet Volume 11.3 FL (9.6-12.0); Monocytes # 0.6 10*3/uL (0.11-0.8); Monocytes % 10.6 % (1.7-12.7); Neutrophils # 2.3 10*3/uL (1.4-7.4); Neutrophils % 43.1 % (38.7-73.9); Platelet Count 186 T/CUMM (130-400); Red Blood Count 5.25 MC/CUMM (3.8-5.5); Red Cell Distribution Width 13.5 % (9.3-17.3); White Blood Count 5.4 T/CUMM (4-12)
[2017-07-25] MEDS ORDERED: CEFUROXIME INJ 1,500 MG in SODIUM CHLORIDE 0.9% 100 ML IV ONE (05:00)
[2017-07-25 05:27] LABS: Calcium 9.1 MG/DL (8.5-10.1); Magnesium 2.1 MG/DL (1.8-2.4); Osmolality,Calculated 280.4 MOS/KG (273-304); Potassium 4.2 MMOL/L (3.5-5.1)
[2017-07-25] MEDS: amLODIPine 10 MG TABLET PO SCH ×2 (05:44→10:16)
[2017-07-25] MEDS: LISINOPRIL 20 MG TABLET PO SCH ×2 (05:45→10:17)
[2017-07-25] MEDS ORDERED: VECURONIUM 10 MG VIAL IV ONE ×2 (06:47→19:18)
[2017-07-25] MEDS ORDERED: CALCIUM CHLORIDE 1,000 MG/10 ML SYRINGE IV ONE ×4 (06:47→19:55)
[2017-07-25 07:49] LABS: ABG Base Excess -1.4 MMOL/L (-2.5-2.5); ABG HCO3 23.3 MMOL/L (20-26); ABG Oxygen Saturation 99.4 % (95-100); ABG PCO2 42.9 MM HG (35-48); ABG TCO2 20.8 MMOL/L (23-27); Glucose Heart Surgery 125 MG/DL (74-106); Hematocrit Heart Surgery 45.2 PERCENT (42-52); Hemoglobin Heart Surgery 14.7 G/DL (14.0-18.0); Ionized Calcium Arterial 1.18 MMOL/L (1.21-1.46); PCO2 Patient Temp Arterial 42.9 MMHG; Patient Temperature 37 CELCIUS; Potassium Heart/CVR 3.9 MMOL/L (3.5-5.1); Sodium Heart/CVR 137 MMOL/L (135-145)
[2017-07-25 08:02] LABS: Apearance,Urine CLEAR (Clear); Bilirubin,Urine Negative (Negative); Blood, Urine Small mg/dL (Negative); Glucose,Urine (UA) >=500 mg/dL (Negative); Ketones,Urine Negative (Negative); Mucus,Urine Occasional /LPF (Occasional); Nitrite,Urine Negative (Negative); Protein,Urine Negative; RBC,Urine 3 /HPF (0-4); Squamous Epithelial Cell,Urine Occasional /HPF (0-10); Urine Color Yellow (Yellow); Urine Specific Gravity 1.018 (1.001-1.035); Urine Urobilinogen < 2.0 EU/DL (0.2-1.0); WBC,Urine <1 /HPF (0-6)
[2017-07-25] MEDS ORDERED: PHENYLEPHRINE DRIP 40 MG/250 ML PREMIX IV ONE (09:10)
[2017-07-25] MEDS ORDERED: NITROPRUSSIDE 50 MG/2 ML VIAL ONE (09:10)
[2017-07-25] MEDS ORDERED: LIDOCAINE 100 MG/5 ML SYRINGE ONE (09:10)
[2017-07-25] MEDS ORDERED: ALBUMIN 5% 12.5 GM/250 ML VIAL IV ONE (09:10)
[2017-07-25] MEDS ORDERED: EPINEPHrine 1 MG/10 ML SYRINGE ONE ×2 (09:10→18:05)
[2017-07-25] MEDS ORDERED: POTASSIUM CHLORIDE RIDER 100 ML IV ONE (09:11)
[2017-07-25] MEDS ORDERED: ATROPINE 1 MG/1 ML VIAL ONE (09:11)
[2017-07-25 09:21] LABS: Hematocrit Heart Surgery 30.6 PERCENT (42-52); Hemoglobin Heart Surgery 9.9 G/DL (14.0-18.0); PCO2 Patient Temp Venous 39.2 MM HG; PH Patient Temp Venous 7.39; PO2 Patient Temp Venous 39.8 MM HG; Potassium Heart/CVR 5.8 MMOL/L (3.5-5.1); VBG Base Excess -0.9 MEQ/L (0-4); VBG HCO3 23.4 MEQ/L (24-28); VBG Oxygen Saturation 81.3 %; VBG PCO2 45.4 MMHG (41-51); VBG PH 7.347; VBG PO2 48.9 MMHG (17-40)
[2017-07-25 09:48] LABS: Hematocrit Heart Surgery 34.2 PERCENT (42-52); Hemoglobin Heart Surgery 11.1 G/DL (14.0-18.0); PCO2 Patient Temp Venous 35.1 MM HG; PH Patient Temp Venous 7.434; Potassium Heart/CVR 5.8 MMOL/L (3.5-5.1); VBG Base Excess -0.3 MEQ/L (0-4); VBG HCO3 23.8 MEQ/L (24-28); VBG Oxygen Saturation 77.8 %; VBG PCO2 42.5 MMHG (41-51); VBG PH 7.376; VBG PO2 44.9 MMHG (17-40)
[2017-07-25] MEDS: SODIUM CHLORIDE 0.9% 1,000 ML IV SCH (10:15)
[2017-07-25] MEDS: INSULIN LISPRO 100 UNIT/ML SUBCUT SCH ×2 (10:16→13:40)
[2017-07-25] MEDS: metFORMIN 500 MG TABLET PO SCH (10:16)
[2017-07-25] MEDS: ATORVASTATIN 40 MG TABLET PO SCH (10:16)
[2017-07-25] MEDS: ASPIRIN 325 MG TABLET PO SCH (10:16)
[2017-07-25] MEDS: MULTIVITAMIN (CENTRUM) TABLET PO SCH (10:16)
[2017-07-25] MEDS: CHLORHEXIDINE 0.12% ORAL RINSE 60 ML BOTTLE SWISH/SPIT SCH (10:17)
[2017-07-25 10:52] LABS: ABG Base Excess -2.8 MMOL/L (-2.5-2.5); ABG HCO3 22.2 MMOL/L (20-26); ABG Oxygen Saturation 97.4 % (95-100); ABG PCO2 39.3 MM HG (35-48); ABG PH 7.369 (7.35-7.45); ABG PO2 102.5 MM HG (80-95); ABG TCO2 23.4 MMOL/L (23-27); Glucose Heart Surgery 203 MG/DL (74-106); Hemoglobin Heart Surgery 12.7 G/DL (14.0-18.0); Ionized Calcium Arterial 1.27 MMOL/L (1.21-1.46); PCO2 Patient Temp Arterial 39.3 MMHG; PH Patient Temp Arterial 7.369; PO2 Patient Temp Arterial 102.5 MM HG; Patient Temperature 37 CELCIUS; Potassium Heart/CVR 5.2 MMOL/L (3.5-5.1); Sodium Heart/CVR 131 MMOL/L (135-145)
[2017-07-25] MEDS ORDERED: PHENYLEPHRINE DRIP 20 MG/250 ML PREMIX IV ONE ×2 (10:58→21:47)
[2017-07-25] MEDS ORDERED: ALBUMIN 25% 25 GM/100 ML VIAL IV ONE ×2 (10:58→21:47)
[2017-07-25] MEDS ORDERED: DEXTROSE 5% KCL 20 MEQ 20 MEQ/1,000 ML BAG IV ONE ×2 (10:58→21:47)
[2017-07-25] MEDS ORDERED: SODIUM BICARBONATE 50 MEQ/50 ML SYRINGE IV ONE ×4 (10:58→21:47)
[2017-07-25] MEDS ORDERED: PROTAMINE SULFATE 250 MG/25 ML VIAL IV ONE ×2 (10:58→21:47)
[2017-07-25] MEDS ORDERED: HEPARIN 10,000 UNIT/10 ML VIAL ONE ×2 (10:59→21:47)
[2017-07-25] MEDS ORDERED: MAGNESIUM SULFATE 1 GM/2 ML VIAL ONE ×2 (10:59→21:47)
[2017-07-25] MEDS ORDERED: methylPREDNISolone SOD SUC 1,000 MG/8 ML VIAL ONE ×2 (10:59→21:47)
[2017-07-25] MEDS ORDERED: MANNITOL 12.5 GM/50 ML VIAL IV ONE ×2 (10:59→21:47)
[2017-07-25] MEDS ORDERED: FUROSEMIDE 20 MG/2 ML VIAL ONE ×2 (10:59→21:48)
[2017-07-25] MEDS: SODIUM CHLORIDE 0.45% 1,000 ML IV SCH ×2 (11:20)
[2017-07-25] MEDS ORDERED: SUFentanil 250 MCG/5 ML AMP ONE (11:33)
[2017-07-25] MEDS ORDERED: MIDAZOLAM 2 MG/2 ML VIAL ONE (11:33)
[2017-07-25] MEDS ORDERED: SEVOFLURANE 1 UNIT/15 MINUTE INH ONE ×3 (11:33→22:33)
[2017-07-25] MEDS ORDERED: PROTAMINE SULFATE 50 MG/5 ML VIAL IV ONE ×2 (11:33→13:55)
[2017-07-25] MEDS ORDERED: MIDAZOLAM 10 MG/2 ML VIAL ONE ×3 (11:34→22:34)
[2017-07-25] MEDS ORDERED: SODIUM CHLORIDE 0.9% 100 ML IV ONE (11:34)
[2017-07-25] MEDS ORDERED: SODIUM CHLORIDE 0.9% 2,000 ML IV ONE (11:34)
[2017-07-25] MEDS ORDERED: LACTATED RINGERS 1,000 ML IV ONE (11:34)
--- NOTE | 2017-07-25 11:46 | Operative Note ---
Date of procedure: 07/25/17 Pre-op diagnosis: Coronary artery disease Post-op diagnosis: same Procedure: Procedure: Coronary bypass grafting 3 with a left internal mammary graft to the anterior descending coronary artery and saphenous vein graft to the obtuse marginal and to the right coronary arteries. Findings: Patient is a 72-year-old man who was found at catheterization to have severe three-vessel coronary disease with left main coronary involvement. Surgery was recommended that and at the time of surgery left ventricular function was noted to be normal and grafts were placed to the anterior descending coronary artery using left internal mammary artery and saphenous vein grafts were placed to the obtuse marginal and to the distal right coronary artery. Patient tolerated the procedure well and returned to recovery in satisfactory condition. Distal vessels were of adequate size and relatively free of disease at the site of anastomosis. Procedure: Patient brought the operating room placed in the operating table in supine position. After satisfactory induction of general anesthesia the chest abdomen and legs were prepped and draped in sterile fashion. Greater saphenous vein was harvested from the left lower leg and prepared as an arterial graft. Incision in the leg was closed with 3-0 subcutaneous Monocryl and 3-0 subcuticular Monocryl. Standard sternotomy incision was made and the sternum was divided and the heart suspended in a pericardial cradle. Left internal mammary artery was dissected free from its position in the anterior chest wall and prepared as an arterial graft. Patient was prepared for cardiopulmonary bypass with systemic heparinization cannulation of the ascending aorta and right atrium. Cardiopulmonary bypass was begun and the aorta was crossclamped and the heart arrested with cardioplegia solution injected into the aortic root. Heart was protected during the period of crossclamping with topical saline slush. Distal anastomoses were constructed as noted above and then the aorta was unclamped reestablishing cardiac action. Proximal anastomoses were constructed between the saphenous vein grafts in the ascending aorta. Following this the patient was weaned from cardiopulmonary bypass without difficulty and heparin effect reversed with protamine. Decannulation was carried out with a defects in the ascending aorta and right atrium closed with 3 -0 Prolene. The operative field was inspected for hemostasis and this was considered adequate incision was closed with interrupted stainless steel wire and the sternum and 0 Monopril in the presternal fascia. Skin was closed with running subcuticular 3-0 Monocryl. Sterile dressings were applied and the patient was returned to recovery in satisfactory condition. 2 chest tubes were left in the anterior mediastinum and brought out through separate stab incisions. Anesthesia: ANDREW Surgeon / Physician: Naeem Parekh Estimated blood loss: other (Unable to determine because of cardiopulmonary bypass) Condition: stable Disposition: ICU Results - Labs CBC & BMP: 07/25/17 10:48 07/25/17 04:07 Discharge Plan - Discharge Medications No Action Nitroglycerin Sl Tab [Nitrostat] 0.4 mg SL Q5M PRN PRN Reason: Chest Pain Metformin HCl [Glucophage] 1,000 mg PO BID Lisinopril 20 mg PO DAILY Empagliflozin [Jardiance] 25 mg PO DAILY Aspirin Tab 325 mg PO DAILY Amlodipine/Atorvastatin [Amlodipine-Atorvast 10-40 mg] 1 each PO DAILY Tadalafil [Cialis] 5 mg PO DAILY PRN PRN Reason: Erectile Dysfunction Folic Acid/Multivit-Min/Lutein [Centrum Silver Chew Tab] 1 tablet PO DAILY - Follow Up or Referral - Forms/Instructions
[2017-07-25] MEDS ORDERED: MAGNESIUM SULF RIDER 2 GM in PREMIX 1 EACH IV PRN (11:54)
[2017-07-25] MEDS ORDERED: ACETAMINOPHEN 650 MG SUPP RECTAL PRN (11:54)
[2017-07-25] MEDS ORDERED: VECURONIUM 10 MG VIAL IV PRN ×2 (11:54)
[2017-07-25] MEDS ORDERED: POTASSIUM CHLORIDE RIDER 10 MEQ in PREMIX 1 EACH IV PRN (11:54)
[2017-07-25] MEDS ORDERED: MAGNESIUM SULF RIDER 4 GM in PREMIX 1 EACH IV PRN (11:54)
[2017-07-25] MEDS ORDERED: LACTATED RINGERS 250 ML IV PRN (11:54)
[2017-07-25] MEDS ORDERED: MIDAZOLAM 10 MG/2 ML VIAL IV PRN (11:54)
[2017-07-25] MEDS ORDERED: INSULIN REGULAR 100 UNIT/ML IV ONE (11:54)
[2017-07-25] MEDS ORDERED: CALCIUM CHLORIDE 1,000 MG/10 ML SYRINGE IV PRN (11:54)
[2017-07-25] MEDS ORDERED: NITROPRUSSIDE 100 MG in DEXTROSE 5% 250 ML IV PRN (11:54)
[2017-07-25] MEDS ORDERED: ONDANSETRON 4 MG/2 ML VIAL IV PRN (11:54)
[2017-07-25] MEDS ORDERED: INSULIN REGULAR 100 UNIT/ML IV PRN (11:54)
[2017-07-25] MEDS ORDERED: DEXTROSE 50% 25 GM/50 ML SYRINGE IV PRN ×2 (11:54)
[2017-07-25 12:16] LABS: ABG Base Excess -3.4 MMOL/L (-2.5-2.5); ABG HCO3 20.7 MMOL/L (20-26); ABG Oxygen Saturation 98.5 % (95-100); ABG PCO2 34.5 MM HG (35-48); ABG PH 7.397 (7.35-7.45); ABG PO2 148.9 MM HG (80-95); ABG TCO2 21.8 MMOL/L (23-27); Glucose Heart Surgery 150 MG/DL (74-106); Hemoglobin Heart Surgery 12.3 G/DL (14.0-18.0); Potassium Heart/CVR 3.5 MMOL/L (3.5-5.1)
[2017-07-25] MEDS: LACTATED RINGERS 1,000 ML IV PRN ×5 (12:22→22:50)
[2017-07-25] MEDS: POTASSIUM CHLORIDE RIDER 20 MEQ in PREMIX 1 EACH IV PRN ×4 (12:22→23:35)
[2017-07-25 12:23] LABS: Basophils % 0.1 % (0.0-0.8); Eosinophils % 0.5 % (0.00-10.9); Hematocrit 35.1 VOL% (42.0-52.0); Immature Granulocytes % 0.9 %; Immature Granulocytes Absolute 0.07 #; Lymphocytes # 1.2 10*3/uL (1.4-4.0); Lymphocytes % 15.5 % (21.2-54.2); Mean Corpuscular HGB Conc 34.5 GM/DL (32-36); Mean Corpuscular Hemoglobin 31 PG (27-34); Mean Corpuscular Volume 88.6 FL (87-102); Mean Platelet Volume 11.4 FL (9.6-12.0); Monocytes # 0.4 10*3/uL (0.11-0.8); Monocytes % 5.7 % (1.7-12.7); Neutrophils % 77.3 % (38.7-73.9); Platelet Count 147 T/CUMM (130-400); Red Cell Distribution Width 13.5 % (9.3-17.3); White Blood Count 7.7 T/CUMM (4-12)
[2017-07-25 12:24] LABS: Hemoglobin 12.1 GM/DL (14.0-18.0); Red Blood Count 3.96 MC/CUMM (3.8-5.5)
--- NOTE | 2017-07-25 12:30 | Cardiology Progress Note ---
Assessment and Plan - Time spent with patient Time spent with patient: Less than 30 minutes (1) S/P CABG x 3 Status: Acute Assessment and plan: On 07/25/17, he underwent coronary artery bypass grafting x3 with a left internal mammary graft to the anterior descending coronary artery and saphenous vein graft to the obtuse marginal and to the right coronary arteries. Will continue to monitor. Current Visit: Yes (2) Coronary artery disease Status: Acute Assessment and plan: Heart catheterization on 07/22/17 revealed significant left main and severe right coronary artery disease with preserved left ventricular systolic function and normal left subclavian/left internal mammary artery. Once off ventilator, will resume aspirin, OSVALDO, statin. Current Visit: Yes (3) Hypertension Status: Chronic Assessment and plan: Currently well controlled. Will continue to monitor and adjust accordingly. Current Visit: Yes (4) HLD (hyperlipidemia) Status: Chronic Assessment and plan: Continue lipid lowering agent once tolerating po. Lipid panel revealed triglycerides 60, cholesterol 151, LDL 82, HDL 55. Current Visit: Yes (5) Diabetes mellitus Status: Chronic Assessment and plan: He has been started on accuchecks ACHS with sliding scale coverage. Current Visit: Yes Cardiology - PN: Subj Interval history: Snack Steward: Dr. Guaman SUMMARY: Mr. Arvizu is a 72 year old male who was admitted as an outpatient on 07/22/17 for left heart catheterization due to symptoms of exertional angina and abnormal nuclear stress test suggesting cardiac ischemia. He has a history of hypertension, hyperlipidemia, and diabetes. Heart catheterization on 07/22/17 revealed significant left main and severe right coronary artery disease with preserved left ventricular systolic function and normal left subclavian/left internal mammary artery. CV surgery was consulted to see him. Recent echocardiogram done on 07/16/17 revealed EF 55%, normal diastolic function, mild LVH, trace MR, trace MA. On 07/25/17, he underwent coronary artery bypass grafting x3 with a left internal mammary graft to the anterior descending coronary artery and saphenous vein graft to the obtuse marginal and to the right coronary arteries. JULY 25, 2017 UPDATE: Mr. Arvizu is seen post operative from CABG. He has a left radial aterial line in place. He has had approximately 900ml output from his 2 mediastinal chest tubes since he has returned from surgery. Post op labs currently reveal H&H 12.1 & 35.1. 2 medi[address] chest tubes in place. Midsternal dressing dry and intact. Dr. Martinez to follow with further plan and addendum. ASSESSMENT/PLAN: 1. S/P CABG X2 - On 07/25/17, he underwent coronary artery bypass grafting x3 with a left internal mammary graft to the anterior descending coronary artery and saphenous vein graft to the obtuse marginal and to the right coronary arteries. Will continue to monitor. 2. CORONARY ARTERY DISEASE - Heart catheterization on 07/22/17 revealed significant left main and severe right coronary artery disease with preserved left ventricular systolic function and normal left subclavian/left internal mammary artery. Once off ventilator, will resume aspirin, OSVALDO, statin. 3. HYPERTENSION - Currently well controlled. Will continue to monitor and adjust accordingly. 4. HYPERLIPIDEMIA - Continue lipid lowering agent once tolerating po. Lipid panel revealed triglycerides 60, cholesterol 151, LDL 82, HDL 55. 5. DIABETES MELLITUS - He has been started on accuchecks ACHS with sliding scale coverage. Exam (Progress Note) - Constitutional Vitals: Period Temp Pulse Resp BP Sys/Baltazar Pulse Ox Last 24 Hr 96.9 F-98.3 F 59-71 10-18 131-158/76-83 95-99 Exam: General appearance: Orally intubated and on ventilator. Normal weight, no acute distress. - Head Head exam: Present: normal inspection, normocephalic, atraumatic. Absent: hematoma, laceration - Eye Eye exam: Present: EOMI. Absent: conjunctival injection, nystagmus, periorbital swelling, scleral icterus, laceration to eyelids Pupils: Present: PERRL. Absent: constricted, dilated, fixed, irregular, unequal - ENT ENT exam: Present: Orally intubated, normal external ear exam - Neck Neck exam: Present: normal inspection. Absent: lymphadenopathy, meningismus, tenderness, thyromegaly - Respiratory Respiratory exam: Present: Mechanically ventilated breath sounds. 2 mediastinal chest tubes in place. Absent: accessory muscle use - Cardiovascular Cardiovascular exam: Present: regular rate and rhythm. Absent: carotid bruit, gallop, JVD, rubs, murmur - GI/Abdominal GI/Abdominal exam: Present: normal bowel sounds, soft. Absent: distended, firm , guarding, hernia, mass, tenderness, rebound. - Extremities Exam Extremities exam: Present: normal inspection, normal capillary refill. Upper extremity pulses 2+. Lower extremity pulses 2+. Absent: calf tenderness, edema - Back Exam Back exam: Present: Unable to examine due to habitus. Sedated on mechanical ventilator. - Neurological Exam Neurological exam: Present: Limited due to habitus (on ventilator). No resting or essential tremor. - Psychiatric Psychiatric exam: Present: Unable to adequately assess due to patient being sedated and on mechanical ventilation. - Skin Skin exam: Present: normal color, warm, dry, intact. Midsternal dressing intact. Absent: cyanosis, diaphoretic, rash, urticaria Result/EKG - Labs CBC & BMP: 07/25/17 12:00 07/25/17 04:07 Lab Results: I have reviewed the past 24 hour labs Labs: Laboratory Results - last 24 hr 07/24/17 07/24/17 07/24/17 03:47 15:35 19:18 WBC RBC Hgb Hct MCV MCH MCHC RDW Plt Count MPV Neut % (Auto) Lymph % (Auto) [facility] % (Auto) Eos % (Auto) Baso % (Auto) Neut # (Auto) Lymph # (Auto) [facility] # (Auto) Eos # (Auto) Baso # (Auto) Immature Gran % Nucleated RBC % Immature Gran # Nucleated RBCs # Immature Plt Fraction Patient Temperature ABG pH ABG pH at Pt Temp ABG pCO2 ABG pCO2 at Pt Temp ABG pO2 ABG pO2 at Pt Temp ABG HCO3 ABG Total CO2 ABG O2 Saturation ABG Base Excess ABG Sodium VBG pH VBG pCO2 VBG pO2 VBG HCO3 VBG Total CO2 VBG O2 Saturation VBG Base Excess Hemoglobin Hematocrit Ionized Calcium FiO2 Sodium Potassium Chloride Carbon Dioxide Anion Gap BUN Creatinine GFR Calculation BUN/Creatinine Ratio Glucose POC Glucose 104 192 H Calculated Osmolality Calcium Venous Ioniz Calcium Magnesium Urine Color Urine Appearance Urine pH Ur Specific [place] Urine Protein Urine Glucose (UA) Urine Ketones Urine Blood Urine Nitrate Urine Bilirubin Urine Urobilinogen Urine Leukocytes Urine RBC Urine WBC Ur Squamous Epith Cells Urine Mucus Ur Culture Indicated? Blood Type A POSITIVE Antibody Screen Negative Crossmatch See Detail 07/25/17 07/25/17 07/25/17 04:07 04:07 05:22 WBC 5.4 RBC 5.25 Hgb 15.6 Hct 46.0 MCV 87.6 MCH 30 MCHC 33.9 RDW 13.5 Plt Count 186 MPV 11.3 Neut % (Auto) 43.1 Lymph % (Auto) 42.3 [facility] % (Auto) 10.6 Eos % (Auto) 3.2 Baso % (Auto) 0.6 Neut # (Auto) 2.3 Lymph # (Auto) 2.3 [facility] # (Auto) 0.6 Eos # (Auto) 0.2 Baso # (Auto) 0.0 Immature Gran % 0.2 Nucleated RBC % 0.0 Immature Gran # 0.01 Nucleated RBCs # 0.00 Immature Plt Fraction 0.0 Patient Temperature ABG pH ABG pH at Pt Temp ABG pCO2 ABG pCO2 at Pt Temp ABG pO2 ABG pO2 at Pt Temp ABG HCO3 ABG Total CO2 ABG O2 Saturation ABG Base Excess ABG Sodium VBG pH VBG pCO2 VBG pO2 VBG HCO3 VBG Total CO2 VBG O2 Saturation VBG Base Excess Hemoglobin Hematocrit Ionized Calcium FiO2 Sodium 140 Potassium 4.2 Chloride 106 Carbon Dioxide 26 Anion Gap 12.2 BUN 14 Creatinine 0.90 GFR Calculation 111 BUN/Creatinine Ratio 15.00 Glucose 119 H POC Glucose 127 H Calculated Osmolality 280.4 Calcium 9.1 Venous Ioniz Calcium Magnesium 2.1 Urine Color Urine Appearance Urine pH Ur Specific [place] Urine Protein Urine Glucose (UA) Urine Ketones Urine Blood Urine Nitrate Urine Bilirubin Urine Urobilinogen Urine Leukocytes Urine RBC Urine WBC Ur Squamous Epith Cells Urine Mucus Ur Culture Indicated? Blood Type Antibody Screen Crossmatch 07/25/17 07/25/17 07/25/17 07:45 07:45 07:49 WBC RBC Hgb Hct MCV MCH MCHC RDW Plt Count 154 MPV Neut % (Auto) Lymph % (Auto) [facility] % (Auto) Eos % (Auto) Baso % (Auto) Neut # (Auto) Lymph # (Auto) [facility] # (Auto) Eos # (Auto) Baso # (Auto) Immature Gran % Nucleated RBC % Immature Gran # Nucleated RBCs # Immature Plt Fraction Patient Temperature 37 ABG pH 7.360 ABG pH at Pt Temp 7.360 ABG pCO2 42.9 ABG pCO2 at Pt Temp 42.9 ABG pO2 376.0 H ABG pO2 at Pt Temp 376.0 ABG HCO3 23.3 ABG Total CO2 20.8 L ABG O2 Saturation 99.4 ABG Base Excess -1.4 ABG Sodium 137 VBG pH VBG pCO2 VBG pO2 VBG HCO3 VBG Total CO2 VBG O2 Saturation VBG Base Excess Hemoglobin 14.7 Hematocrit 45.2 Ionized Calcium 1.18 L FiO2 Sodium Potassium 3.9 Chloride Carbon Dioxide Anion Gap BUN Creatinine GFR Calculation BUN/Creatinine Ratio Glucose 125 H POC Glucose Calculated Osmolality Calcium Venous Ioniz Calcium Magnesium Urine Color Yellow Urine Appearance Clear Urine pH 6.0 Ur Specific [place] 1.018 Urine Protein Negative Urine Glucose (UA) >=500 Urine Ketones Negative Urine Blood Small Urine Nitrate Negative Urine Bilirubin Negative Urine Urobilinogen < 2.0 H Urine Leukocytes Negative Urine RBC 3 Urine WBC <1 Ur Squamous Epith Cells Occasional Urine Mucus Occasional Ur Culture Indicated? Not indicated Blood Type Antibody Screen Crossmatch 07/25/17 07/25/17 07/25/17 09:15 09:45 10:48 WBC RBC Hgb Hct MCV MCH MCHC RDW Plt Count 126 L MPV Neut % (Auto) Lymph % (Auto) [facility] % (Auto) Eos % (Auto) Baso % (Auto) Neut # (Auto) Lymph # (Auto) [facility] # (Auto) Eos # (Auto) Baso # (Auto) Immature Gran % Nucleated RBC % Immature Gran # Nucleated RBCs # Immature Plt Fraction Patient Temperature 34 33 ABG pH ABG pH at Pt Temp 7.390 7.434 ABG pCO2 ABG pCO2 at Pt Temp 39.2 35.1 ABG pO2 ABG pO2 at Pt Temp 39.8 34.0 ABG HCO3 ABG Total CO2 ABG O2 Saturation ABG Base Excess ABG Sodium 127 L 130 L VBG pH 7.347 7.376 VBG pCO2 45.4 42.5 VBG pO2 48.9 H 44.9 H VBG HCO3 23.4 L 23.8 L VBG Total CO2 22.9 22.5 VBG O2 Saturation 81.3 77.8 VBG Base Excess -0.9 L -0.3 L Hemoglobin 9.9 L D 11.1 L Hematocrit 30.6 L 34.2 L Ionized Calcium FiO2 80.00 80.00 Sodium Potassium 5.8 H 5.8 H Chloride Carbon Dioxide Anion Gap BUN Creatinine GFR Calculation BUN/Creatinine Ratio Glucose 359 H 265 H POC Glucose Calculated Osmolality Calcium Venous Ioniz Calcium 0.97 L 1.04 L Magnesium Urine Color Urine Appearance Urine pH Ur Specific [place] Urine Protein Urine Glucose (UA) Urine Ketones Urine Blood Urine Nitrate Urine Bilirubin Urine Urobilinogen Urine Leukocytes Urine RBC Urine WBC Ur Squamous Epith Cells Urine Mucus Ur Culture Indicated? Blood Type Antibody Screen Crossmatch 07/25/17 07/25/17 07/25/17 10:48 12:00 12:00 WBC 7.7 D RBC 3.96 D Hgb 12.1 L D Hct 35.1 L MCV 88.6 MCH 31 MCHC 34.5 RDW 13.5 Plt Count 147 MPV 11.4 Neut % (Auto) 77.3 H Lymph % (Auto) 15.[address] [facility] % (Auto) 5.7 Eos % (Auto) 0.5 Baso % (Auto) 0.1 Neut # (Auto) 6.0 Lymph # (Auto) 1.[address] [facility] # (Auto) 0.4 Eos # (Auto) 0.0 Baso # (Auto) 0.0 Immature Gran % 0.9 Nucleated RBC % 0.0 Immature Gran # 0.07 Nucleated RBCs # 0.00 Immature Plt Fraction 0.0 Patient Temperature 37 ABG pH 7.369 7.397 ABG pH at Pt Temp 7.369 ABG pCO2 39.3 34.5 L ABG pCO2 at Pt Temp 39.3 ABG pO2 102.5 H 148.9 H ABG pO2 at Pt Temp 102.5 ABG HCO3 22.2 20.7 ABG Total CO2 23.4 21.8 L ABG O2 Saturation 97.4 98.5 ABG Base Excess -2.8 L -3.4 L ABG Sodium 131 L VBG pH VBG pCO2 VBG pO2 VBG HCO3 VBG Total CO2 VBG O2 Saturation VBG Base Excess Hemoglobin 12.7 L 12.3 L Hematocrit 37.0 L 36.0 L Ionized Calcium 1.27 FiO2 Sodium Potassium 5.2 H 3.5 Chloride Carbon Dioxide Anion Gap BUN Creatinine GFR Calculation BUN/Creatinine Ratio Glucose 203 H 150 H POC Glucose Calculated Osmolality Calcium Venous Ioniz Calcium Magnesium Urine Color Urine Appearance Urine pH Ur Specific [place] Urine Protein Urine Glucose (UA) Urine Ketones Urine Blood Urine Nitrate Urine Bilirubin Urine Urobilinogen Urine Leukocytes Urine RBC Urine WBC Ur Squamous Epith Cells Urine Mucus Ur Culture Indicated? Blood Type Antibody Screen Crossmatch Quality Measures - VTE Contraindication to Pharmacological VTE Prophylaxis: High Risk of Bleeding
--- NOTE | 2017-07-25 12:36 | Operative Note ---
Date of procedure: 07/25/17 Procedure: 1. [place] of the left lower extremity greater saphenous vein 2. Assist with coronary artery bypass graft I made an incision from anterior to the medial malleolus of the left lower extremity all the way up to the knee. I circumferentially dissected the saphenous vein. This was done second successfully without any problems. Hemostasis was achieved. The skin was closed using PDS. This can was closed using rae I then moved into assist with coronary bypass graft. I assisted with the distal anastomosis of the right main coronary artery, obtuse marginal artery, and left anterior descending artery. Details of this procedure are dictated by Dr. Parekh. Surgeon / Physician: Jessica Ruiz Results - Labs CBC & BMP: 07/25/17 12:00 07/25/17 04:07 Discharge Plan - Discharge Medications No Action Nitroglycerin Sl Tab [Nitrostat] 0.4 mg SL Q5M PRN PRN Reason: Chest Pain Metformin HCl [Glucophage] 1,000 mg PO BID Lisinopril 20 mg PO DAILY Empagliflozin [Jardiance] 25 mg PO DAILY Aspirin Tab 325 mg PO DAILY Amlodipine/Atorvastatin [Amlodipine-Atorvast 10-40 mg] 1 each PO DAILY Tadalafil [Cialis] 5 mg PO DAILY PRN PRN Reason: Erectile Dysfunction Folic Acid/Multivit-Min/Lutein [Centrum Silver Chew Tab] 1 tablet PO DAILY - Follow Up or Referral - Forms/Instructions
[2017-07-25 12:51] LABS: INR 1.2; PT Patient Result 12.9 SECS; Partial Thromboplastin Time 30.2 SECS (0-40)
[2017-07-25 12:54] LABS: Bilirubin,Total 1.1 MG/DL (0.2-1.0); Magnesium 2.1 MG/DL (1.8-2.4); Osmolality,Calculated 281.4 MOS/KG (273-304); Potassium 3.8 MMOL/L (3.5-5.1); Total Protein 5.2 G/DL (6.4-8.3)
[2017-07-25 12:56] LABS: Band Neutrophils 2 % (0-10); Hypochromasia 1+; Lymphocytes 18 % (20-55); Nucleated Red Blood Cells 1 (0-5); Segmented Neutrophils 73 % (50-85); Total Cells Counted 100
[2017-07-25 12:57] LABS: Platelet Estimate Adequate
[2017-07-25 13:02] LABS: CKMB % 4.6 %
[2017-07-25 13:04] LABS: Troponin I Only 5.25 NG/ML (0.00-0.045)
--- NOTE | 2017-07-25 14:07 | Operative Note ---
Date of procedure: 07/25/17 Post-op diagnosis: other (Postoperative hemorrhage with bleeding from the anastomosis between the saphenous vein in the distal right coronary artery.) Procedure: Procedure: Patient brought the operating room placed on the operating table in supine position. After satisfactory induction of general anesthesia the chest was prepped and draped in sterile fashion. Sternotomy incision was reopened and the sternal wires removed and the pericardial well was inspected. There was a moderate amount of clotted blood present primarily in the region of the right coronary anastomosis. Once this was evacuated it was clear that there was bleeding from the distal anastomosis of the saphenous vein graft to the right coronary. This was controlled with a single suture of 6-0 Prolene. Following this the operative field was irrigated with warm saline and an incision was closed in usual fashion with interrupted stainless steel wire and the sternum 0 Monopril in the presternal fascia and 3-0 Monocryl in the skin. Chest tubes were left in the anterior mediastinum and brought out through separate stab incisions. Sterile dressings were applied patient was returned to recovery in satisfactory condition. Surgeon / Physician: Naeem Parekh Condition: stable Disposition: ICU Results - Labs CBC & BMP: 07/25/17 12:00 07/25/17 12:00 Discharge Plan - Discharge Medications No Action Nitroglycerin Sl Tab [Nitrostat] 0.4 mg SL Q5M PRN PRN Reason: Chest Pain Metformin HCl [Glucophage] 1,000 mg PO BID Lisinopril 20 mg PO DAILY Empagliflozin [Jardiance] 25 mg PO DAILY Aspirin Tab 325 mg PO DAILY Amlodipine/Atorvastatin [Amlodipine-Atorvast 10-40 mg] 1 each PO DAILY Tadalafil [Cialis] 5 mg PO DAILY PRN PRN Reason: Erectile Dysfunction Folic Acid/Multivit-Min/Lutein [Centrum Silver Chew Tab] 1 tablet PO DAILY - Follow Up or Referral - Forms/Instructions
[2017-07-25] MEDS: PHENYLEPHRINE DRIP 40 MG/250 ML PREMIX IV PRN (14:09)
[2017-07-25] MEDS: ALBUMIN 5% 12.5 GM in PREMIX 1 EACH IV PRN ×5 (14:15→23:20)
[2017-07-25] MEDS ORDERED: SUFentanil 50 MCG/ML AMP ONE (14:19)
[2017-07-25] MEDS: KETOROLAC 30 MG/1 ML VIAL IV SCH (14:45)
[2017-07-25 14:48] LABS: ABG Base Excess -3.7 MMOL/L (-2.5-2.5); ABG HCO3 21.3 MMOL/L (20-26); ABG Oxygen Saturation 98.2 % (95-100); ABG PCO2 39.7 MM HG (35-48); ABG PH 7.345 (7.35-7.45); ABG TCO2 19.6 MMOL/L (23-27); Glucose Heart Surgery 156 MG/DL (74-106); Hematocrit Heart Surgery 33.3 PERCENT (42-52); Hemoglobin Heart Surgery 10.8 G/DL (14.0-18.0); Potassium Heart/CVR 4.3 MMOL/L (3.5-5.1)
--- NOTE | 2017-07-25 15:18 | Anesthesia Post-Op ---
Anesthesia Post OP - Post Ansesthetic Evaluation Patient seen in post op: Yes Resp: within normal limits CV: within normal limits Mental: within normal limits Temp: within normal limits Ansu-Ea-Yfovlnekb: within normal limits Nausea and Vomiting: within normal limits Pain: within normal limits
--- NOTE | 2017-07-25 15:37 | XRay Report ---
XR chest 1V portable Indication: Line placement. Chest one view: Since 2 days ago, patient has undergone median sternotomy. Endotracheal tube terminates 4 cm cephalad the marjorie, NG tube extends off lower edge of the image, mediastinal drains are present, right IJ central line in the SVC. Heart size remains normal. Lungs are hypoinflated with atelectasis. No pneumothorax. Impression: Lines and tubes as described. Postoperative changes median sternotomy. Pulmonary hypoinflation with atelectasis. PROCEDURE INTERPRETED AT [facility] DEPARTMENT OF RADIOLOGY Final Report Signed by: Jayy Paulino M.D.
[2017-07-25] MEDS: MORPHINE 10 MG/1 ML VIAL IV PRN ×2 (16:45→17:55)
[2017-07-25 16:57] LABS: ABG Base Excess -6.2 MMOL/L (-2.5-2.5); ABG HCO3 19.3 MMOL/L (20-26); ABG Oxygen Saturation 95.3 % (95-100); ABG PCO2 45.3 MM HG (35-48); ABG PH 7.265 (7.35-7.45); ABG PO2 89.5 MM HG (80-95); ABG TCO2 19.3 MMOL/L (23-27); Glucose Heart Surgery 175 MG/DL (74-106); Hematocrit Heart Surgery 26.7 PERCENT (42-52); Hemoglobin Heart Surgery 8.6 G/DL (14.0-18.0); Potassium Heart/CVR 4.2 MMOL/L (3.5-5.1)
[2017-07-25] MEDS: INSULIN REGULAR 100 UNIT/ML SUBCUT SCH ×2 (17:09→19:12)
[2017-07-25] MEDS ORDERED: FUROSEMIDE 40 MG/4 ML VIAL IV ONE ×2 (17:25→22:30)
[2017-07-25] MEDS: INSULIN REGULAR DRIP 100 ML IV SCH ×2 (17:27→23:50)
[2017-07-25] MEDS ORDERED: DOPamine 800 MG/250 ML PREMIX IV ONE (17:40)
[2017-07-25] MEDS: EPINEPHrine 1 MG/10 ML SYRINGE IV PRN ×4 (18:06→18:40)
[2017-07-25] MEDS: MIDAZOLAM 2 MG/2 ML VIAL IV PRN ×2 (18:26→22:40)
--- NOTE | 2017-07-25 18:27 | XRay Report ---
Exam: XR chest 1V portable Date: 07/25/2017 5:51 PM Indication: Recent coronary bypass grafting Comparison: 07/25/2017 Technical: AP portable Findings: Right IJ catheter is present. Endotracheal tube and nasogastric tube are present. Mediastinal drains are present. Atelectatic change present in the basilar regions. Mild cardiac enlargement. Tiny low volume effusions are present without pneumothorax. Small amount of air present along the pericardium on the left suspected. Atelectatic change present in the left base posteriorly Impression: 1. Status post sternotomy and coronary bypass grafting 2. Mild cardiomegaly and small amount of pericardial air suspected along the left lateral chest heart border with atelectatic change in the right base. This finding is similar to earlier study to 249 PM 3. Dilated change or infiltrate the left retrocardiac region PROCEDURE INTERPRETED AT [facility] DEPARTMENT OF RADIOLOGY Final Report Signed by: Dr. Aries Benavides
[2017-07-25 18:55] LABS: ABG Base Excess -14.3 MMOL/L (-2.5-2.5); ABG HCO3 13.6 MMOL/L (20-26); ABG Oxygen Saturation 98.6 % (95-100); ABG TCO2 12.6 MMOL/L (23-27)
[2017-07-25 18:57] LABS: ABG PH 7.175 (7.35-7.45)
[2017-07-25] MEDS ORDERED: methylPREDNISolone SOD SUC 125 MG/2 ML VIAL ONE (19:05)
[2017-07-25] MEDS ORDERED: SODIUM BICARBONATE 50 MEQ/50 ML VIAL IV ONE (19:18)
[2017-07-25 19:37] LABS: ABG Base Excess -12.2 MMOL/L (-2.5-2.5); ABG Oxygen Saturation 98.5 % (95-100); ABG TCO2 14.1 MMOL/L (23-27); Glucose Heart Surgery 267 MG/DL (74-106); Hematocrit Heart Surgery 35.5 PERCENT (42-52); Hemoglobin Heart Surgery 11.5 G/DL (14.0-18.0); Ionized Calcium Arterial 1.16 MMOL/L (1.21-1.46); PH Patient Temp Arterial 7.204; Patient Temperature 37 CELCIUS; Potassium Heart/CVR 3.7 MMOL/L (3.5-5.1); Sodium Heart/CVR 143 MMOL/L (135-145)
[2017-07-25 19:41] LABS: ABG PH 7.204 (7.35-7.45)
[2017-07-25] MEDS ORDERED: EPINEPHrine 1 MG/10 ML SYRINGE IV ONE (19:44)
[2017-07-25] MEDS ORDERED: ATROPINE 1 MG/1 ML VIAL IV ONE (19:44)
[2017-07-25 19:49] LABS: Troponin I Only 7.57 NG/ML (0.00-0.045)
[2017-07-25] MEDS ORDERED: MIDAZOLAM 2 MG/2 ML VIAL IV ONE ×2 (19:50)
[2017-07-25] MEDS ORDERED: methylPREDNISolone SOD SUC 125 MG/2 ML VIAL IV ONE (19:58)
[2017-07-25] MEDS ORDERED: DOPamine 800 MG/250 ML PREMIX IV SCH (20:00)
[2017-07-25 20:39] LABS: Hematocrit Heart Surgery 22.2 PERCENT (42-52); Hemoglobin Heart Surgery 7.1 G/DL (14.0-18.0); PCO2 Patient Temp Venous 45.5 MM HG; PH Patient Temp Venous 7.154; PO2 Patient Temp Venous 47.9 MM HG; Potassium Heart/CVR 4.4 MMOL/L (3.5-5.1); VBG Base Excess -12.1 MEQ/L (0-4); VBG HCO3 14.5 MEQ/L (24-28); VBG Oxygen Saturation 71.6 %; VBG PCO2 45.5 MMHG (41-51); VBG PH 7.154; VBG PO2 47.9 MMHG (17-40)
[2017-07-25 21:07] LABS: Hemoglobin Heart Surgery 7.5 G/DL (14.0-18.0); PCO2 Patient Temp Venous 43.6 MM HG; PH Patient Temp Venous 7.267; PO2 Patient Temp Venous 30.9 MM HG; Potassium Heart/CVR 4.1 MMOL/L (3.5-5.1); VBG HCO3 19.9 MEQ/L (24-28); VBG Oxygen Saturation 67.9 %; VBG PCO2 47.6 MMHG (41-51); VBG PH 7.24; VBG PO2 35.6 MMHG (17-40)
[2017-07-25 21:37] LABS: ABG Base Excess -6.9 MMOL/L (-2.5-2.5); ABG HCO3 17.4 MMOL/L (20-26); ABG Oxygen Saturation 98.9 % (95-100); ABG PCO2 30.3 MM HG (35-48); ABG PH 7.378 (7.35-7.45); ABG PO2 409.2 MM HG (80-95); ABG TCO2 18.4 MMOL/L (23-27); Glucose Heart Surgery 284 MG/DL (74-106); Hemoglobin Heart Surgery 8.6 G/DL (14.0-18.0); Ionized Calcium Arterial 1.13 MMOL/L (1.21-1.46); PCO2 Patient Temp Arterial 30.3 MMHG; PH Patient Temp Arterial 7.378; PO2 Patient Temp Arterial 409.2 MM HG; Patient Temperature 37 CELCIUS; Potassium Heart/CVR 4.4 MMOL/L (3.5-5.1); Sodium Heart/CVR 143 MMOL/L (135-145)
[2017-07-25] MEDS ORDERED: POTASSIUM CHLORIDE 20 MEQ/10 ML VIAL ONE (21:48)
[2017-07-25] MEDS ORDERED: PHENYLEPHRINE INJ 160 MG in SODIUM CHLORIDE 0.9% 234 ML IV SCH (22:00)
--- NOTE | 2017-07-25 22:12 | Event Note ---
Called to see patient around 6 PM this evening when he suddenly developed AV dissociation and hypertension. Additional findings when blood work returned with a marked acidosis with a pH of 7.1 for unexplained reasons. EKG suggested ischemia in the distribution of the right coronary artery and my concern was possibility of a problem with the right coronary graft. Decision was made to take the patient back to the operating room and this was discussed with the patient's family and we plan to proceed as soon as possible.
--- NOTE | 2017-07-25 22:17 | Operative Note ---
Date of procedure: 07/25/17 Pre-op diagnosis: Possible occlusion of right coronary graft Post-op diagnosis: same (Thrombosis of the right coronary graft with extension of the thrombosis into the right coronary artery.) Procedure: Procedure: Re-bypass of the right coronary artery with saphenous vein graft. Findings: Patient is a 72-year-old man who had undergone three-vessel bypass grafting earlier in the day. His early postoperative course was marked by excessive chest tube drainage which necessitated a return to the operating room where bleeding from the distal right coronary anastomosis was found and corrected with a single Prolene stitch. Patient subsequently did well until 6 PM this evening when he suddenly developed A-V dissociation and a profound acidosis. He also had EKG changes suggestive of right coronary ischemia. Patient was returned to the operating room where thrombosis of the right coronary graft was confirmed. Patient was placed on cardiopulmonary bypass in the graft was removed and was indeed thrombosed. Thrombosis extended into the right coronary artery beyond the level of anastomosis. Thrombectomy was carried out and the artery was irrigated and a new saphenous vein graft was placed to the site of the previous anastomosis. This graft was anastomosed to the ascending aorta and following this the patient was weaned from cardiopulmonary bypass in sinus rhythm without difficulty. Procedure: Patient brought to the operating room placed in the operating table in supine position. After satisfactory induction of general anesthesia the chest abdomen and legs were prepped and draped in sterile fashion. The previous sternotomy incision was reopened with the above-noted findings. Greater saphenous vein was harvested from the right lower leg and prepared as an arterial graft. Incision in the leg was closed with 3-0 subcutaneous Monocryl and 3-0 subcuticular Monocryl. Patient was prepared for cardiopulmonary bypass with systemic heparinization cannulation of the ascending aorta and right atrium. Cardiopulmonary bypass was begun and the aorta was crossclamped and the heart arrested with cardioplegia solution injected into the aortic root. The previous saphenous vein graft was removed and the above-noted findings were discovered. The distal right coronary was irrigated and with suction applied was cleared of thrombus which extended into this portion of the vessel. Saphenous vein was anastomosed to the arteriotomy and then anastomosed to the ascending aorta. Following this the aorta was unclamped and cardiac action reestablished. Patient was weaned from cardiopulmonary bypass in sinus rhythm without difficulty. Heparin effect was reversed with protamine and decannulation carried out with a defects in the ascending aorta and right atrium closed with 3-0 Prolene. The operative field was inspected for hemostasis and this was considered adequate the incision was closed with interrupted stainless steel wire and the sternum and 0 Monopril in the presternal fascia. Skin was closed with 3-0 subcuticular Monocryl. Sterile dressings were applied the patient was returned to recovery in satisfactory condition. Surgeon / Physician: Naeem Parekh Results - Labs CBC & BMP: 07/25/17 21:33 07/25/17 12:00 Discharge Plan - Discharge Medications No Action Nitroglycerin Sl Tab [Nitrostat] 0.4 mg SL Q5M PRN PRN Reason: Chest Pain Metformin HCl [Glucophage] 1,000 mg PO BID Lisinopril 20 mg PO DAILY Empagliflozin [Jardiance] 25 mg PO DAILY Aspirin Tab 325 mg PO DAILY Amlodipine/Atorvastatin [Amlodipine-Atorvast 10-40 mg] 1 each PO DAILY Tadalafil [Cialis] 5 mg PO DAILY PRN PRN Reason: Erectile Dysfunction Folic Acid/Multivit-Min/Lutein [Centrum Silver Chew Tab] 1 tablet PO DAILY - Follow Up or Referral - Forms/Instructions
[2017-07-25] MEDS ORDERED: ePHEDrine 50 MG/ML AMP ONE (22:34)
[2017-07-25] MEDS ORDERED: SODIUM CHLORIDE 0.9% 1,000 ML IV ONE (22:34)
[2017-07-25 22:36] LABS: ABG Base Excess -7.2 MMOL/L (-2.5-2.5); ABG HCO3 17.6 MMOL/L (20-26); ABG Oxygen Saturation 98.1 % (95-100); ABG PH 7.345 (7.35-7.45); ABG PO2 182.2 MM HG (80-95); ABG TCO2 18.6 MMOL/L (23-27); Glucose Heart Surgery 260 MG/DL (74-106); Hemoglobin Heart Surgery 10.4 G/DL (14.0-18.0); Potassium Heart/CVR 4.2 MMOL/L (3.5-5.1)
[2017-07-25 22:40] LABS: Basophils % 0.1 % (0.0-0.8); Eosinophils % 0.1 % (0.00-10.9); Hematocrit 28.4 VOL% (42.0-52.0); Hemoglobin 9.7 GM/DL (14.0-18.0); Immature Granulocytes % 0.8 %; Immature Granulocytes Absolute 0.16 #; Lymphocytes # 1.3 10*3/uL (1.4-4.0); Lymphocytes % 6.8 % (21.2-54.2); Mean Corpuscular HGB Conc 34.2 GM/DL (32-36); Mean Corpuscular Hemoglobin 31 PG (27-34); Mean Corpuscular Volume 90.4 FL (87-102); Mean Platelet Volume 11.6 FL (9.6-12.0); Monocytes # 1.4 10*3/uL (0.11-0.8); Monocytes % 7.6 % (1.7-12.7); Neutrophils # 16.1 10*3/uL (1.4-7.4); Neutrophils % 84.6 % (38.7-73.9); Platelet Count 100 T/CUMM (130-400); Red Blood Count 3.14 MC/CUMM (3.8-5.5)
[2017-07-25 23:08] LABS: INR 1.3; PT Patient Result 13.8 SECS
[2017-07-25 23:09] LABS: Albumin 3.3 G/DL (3.4-5.0); Bilirubin,Total 2.3 MG/DL (0.2-1.0); CKMB % 5.5 %; Calcium 9.1 MG/DL (8.5-10.1); Osmolality,Calculated 301.6 MOS/KG (273-304); Potassium 4.3 MMOL/L (3.5-5.1); Total Protein 4.6 G/DL (6.4-8.3)
[2017-07-25 23:12] LABS: Troponin I Only 77.1 NG/ML (0.00-0.045)
[2017-07-25 23:20] LABS: ABG Base Excess -6.2 MMOL/L (-2.5-2.5); ABG Oxygen Saturation 97.9 % (95-100); ABG PCO2 36.3 MM HG (35-48); ABG PH 7.336 (7.35-7.45); ABG PO2 131.2 MM HG (80-95); ABG TCO2 20.1 MMOL/L (23-27); Glucose Heart Surgery 245 MG/DL (74-106); Potassium Heart/CVR 4.1 MMOL/L (3.5-5.1)
[2017-07-25] MEDS ORDERED: INSULIN REGULAR DRIP 100 ML IV ONE (23:39)
[2017-07-25] MEDS: DOBUTamine 500 MG/250 ML PREMIX IV SCH (23:45)
[2017-07-25] MEDS ORDERED: DOBUTamine 500 MG/250 ML PREMIX IV ONE (23:50)
[2017-07-26] MEDS: ALBUMIN 5% 12.5 GM in PREMIX 1 EACH IV PRN (00:05)
[2017-07-26 00:10] LABS: Band Neutrophils 4 % (0-10); Lymphocytes 6 % (20-55); Platelet Estimate Decreased; Segmented Neutrophils 81 % (50-85); Total Cells Counted 100
[2017-07-26] MEDS: CEFUROXIME INJ 1,500 MG in SODIUM CHLORIDE 0.9% 100 ML IV SCH ×2 (00:20→11:19)
[2017-07-26] MEDS: MORPHINE 10 MG/1 ML VIAL IV PRN ×2 (00:40→02:46)
[2017-07-26 01:02] LABS: ABG Base Excess -0.7 MMOL/L (-2.5-2.5); ABG HCO3 23.9 MMOL/L (20-26); ABG Oxygen Saturation 98.7 % (95-100); ABG PCO2 41.4 MM HG (35-48); ABG PH 7.379 (7.35-7.45); ABG TCO2 22.2 MMOL/L (23-27); Glucose Heart Surgery 247 MG/DL (74-106); Hematocrit Heart Surgery 31.1 PERCENT (42-52); Potassium Heart/CVR 4.3 MMOL/L (3.5-5.1)
[2017-07-26] MEDS: INSULIN REGULAR 100 UNIT/ML SUBCUT SCH ×4 (01:07→21:09)
[2017-07-26] MEDS: KETOROLAC 30 MG/1 ML VIAL IV SCH ×5 (01:07→18:16)
[2017-07-26] MEDS: CHLORHEXIDINE 0.12% ORAL RINSE 60 ML BOTTLE SWISH/SPIT SCH ×3 (01:07→21:09)
[2017-07-26] MEDS: POTASSIUM CHLORIDE RIDER 20 MEQ in PREMIX 1 EACH IV PRN ×4 (01:11→06:56)
[2017-07-26] MEDS ORDERED: PHENYLEPHRINE DRIP 40 MG/250 ML PREMIX IV ONE (01:41)
[2017-07-26] MEDS ORDERED: PHENYLEPHRINE DRIP 40 MG/250 ML PREMIX IV SCH (02:00)
[2017-07-26 02:12] LABS: ABG Base Excess 2.5 MMOL/L (-2.5-2.5); ABG HCO3 26.6 MMOL/L (20-26); ABG Oxygen Saturation 98.5 % (95-100); ABG PCO2 42.2 MM HG (35-48); ABG PH 7.417 (7.35-7.45); ABG TCO2 24.8 MMOL/L (23-27); Glucose Heart Surgery 226 MG/DL (74-106); Hematocrit Heart Surgery 30.3 PERCENT (42-52); Hemoglobin Heart Surgery 9.8 G/DL (14.0-18.0); Potassium Heart/CVR 4.4 MMOL/L (3.5-5.1)
[2017-07-26] MEDS: PHENYLEPHRINE DRIP 40 MG/250 ML PREMIX IV PRN (02:55)
[2017-07-26 03:27] LABS: ABG Base Excess 4.8 MMOL/L (-2.5-2.5); ABG HCO3 28.6 MMOL/L (20-26); ABG Oxygen Saturation 97.2 % (95-100); ABG PCO2 39.6 MM HG (35-48); ABG PH 7.477 (7.35-7.45); ABG PO2 105.8 MM HG (80-95); ABG TCO2 29.8 MMOL/L (23-27); Glucose Heart Surgery 190 MG/DL (74-106); Hemoglobin Heart Surgery 10.3 G/DL (14.0-18.0); Potassium Heart/CVR 4.3 MMOL/L (3.5-5.1)
--- NOTE | 2017-07-26 03:30 | Anesthesia Post-Op ---
Anesthesia Post OP - Post Ansesthetic Evaluation Patient seen in post op: Yes Resp: within normal limits CV: within normal limits Mental: within normal limits Temp: within normal limits Gogz-Et-Ygjltljyx: within normal limits Nausea and Vomiting: within normal limits Pain: within normal limits
[2017-07-26 04:07] LABS: Basophils % 0.1 % (0.0-0.8); Hematocrit 28.2 VOL% (42.0-52.0); Hemoglobin 9.8 GM/DL (14.0-18.0); Immature Granulocytes % 0.8 %; Immature Granulocytes Absolute 0.11 #; Lymphocytes % 6.8 % (21.2-54.2); Mean Corpuscular HGB Conc 34.8 GM/DL (32-36); Mean Corpuscular Hemoglobin 31 PG (27-34); Mean Corpuscular Volume 88.1 FL (87-102); Mean Platelet Volume 12.3 FL (9.6-12.0); Monocytes # 1.3 10*3/uL (0.11-0.8); Monocytes % 9.2 % (1.7-12.7); Neutrophils # 12.1 10*3/uL (1.4-7.4); Neutrophils % 83.1 % (38.7-73.9); Platelet Count 100 T/CUMM (130-400); Red Cell Distribution Width 13.6 % (9.3-17.3); White Blood Count 14.5 T/CUMM (4-12)
[2017-07-26] MEDS: MORPHINE 2 MG/1 ML SYRINGE IV PRN ×2 (04:25→21:55)
[2017-07-26 04:56] LABS: Bilirubin,Direct 0.29 MG/DL (0.0-0.20); Bilirubin,Total 1.7 MG/DL (0.2-1.0); Calcium 9.5 MG/DL (8.5-10.1); Osmolality,Calculated 300.3 MOS/KG (273-304); Potassium 4.4 MMOL/L (3.5-5.1); Total Protein 5.5 G/DL (6.4-8.3)
[2017-07-26 04:58] LABS: ABG Base Excess 4.3 MMOL/L (-2.5-2.5); ABG Oxygen Saturation 97.6 % (95-100); ABG PCO2 33.4 MM HG (35-48); ABG PH 7.525 (7.35-7.45); Glucose Heart Surgery 164 MG/DL (74-106); Hemoglobin Heart Surgery 10.3 G/DL (14.0-18.0); Potassium Heart/CVR 4.2 MMOL/L (3.5-5.1)
[2017-07-26 06:14] LABS: CKMB % 6.3 %
[2017-07-26 06:24] LABS: ABG HCO3 29.3 MMOL/L (20-26); ABG Oxygen Saturation 96.6 % (95-100); ABG PCO2 47.1 MM HG (35-48); ABG PH 7.411 (7.35-7.45); ABG PO2 98.6 MM HG (80-95); ABG TCO2 30.7 MMOL/L (23-27); Glucose Heart Surgery 156 MG/DL (74-106); Hemoglobin Heart Surgery 10.5 G/DL (14.0-18.0)
--- NOTE | 2017-07-26 08:04 | EKG Report ---
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
--- NOTE | 2017-07-26 08:36 | Cardiology Progress Note ---
Assessment and Plan - Time spent with patient Time spent with patient: Less than 30 minutes (1) Coronary artery disease Status: Chronic Assessment and plan: Status post coronary bypass graft redo to the right doing quite well postoperatively. Routine postoperative care Current Visit: Yes Qualifiers: Coronary Disease-Associated Artery/Lesion type: bypass graft [place] vs. transplanted heart: [place] heart Associated angina: without angina Qualified Code(s): I25.810 - Atherosclerosis of coronary artery bypass graft(s) without angina pectoris (2) Hypertension Status: Chronic Current Visit: Yes Qualifiers: Hypertension type: essential hypertension Qualified Code(s): I10 - Essential (primary) hypertension (3) HLD (hyperlipidemia) Status: Chronic Current Visit: Yes (4) Diabetes mellitus Status: Chronic Current Visit: Yes Qualifiers: Diabetes mellitus type: type 2 (5) Obstructive sleep apnea Status: Acute Assessment and plan: newly diagnosed Current Visit: Yes Cardiology - PN: Subj Interval history: Mr. Arvizu was seen in the CVR postop day 1 he has been extubated chest tubes remain he looks excellent. He is status post redo coronary bypass grafting saphenous vein graft to the RCA. He is doing quite well. Exam (Progress Note) - Constitutional Vitals: Period Temp Pulse Resp BP Sys/[place]zar Pulse Ox Last 24 Hr 95.8 F-98.8 F 47-102 10-28 71-171/40-81 95-100 General appearance: normal weight - Eye Eye exam: Present: EOMI Pupils: Present: ROSE - Respiratory Respiratory exam: Present: clear to auscultation bilaterally - Cardiovascular Cardiovascular exam: Present: regular rate and rhythm - GI/Abdominal GI/Abdominal exam: Present: normal bowel sounds - Back Exam Back exam: Present: normal inspection - Neurological Exam Neurological exam: Present: alert, oriented X3 - Psychiatric Psychiatric exam: Present: normal affect, normal mood - Skin Skin exam: Present: normal color, warm, dry Result/EKG - Labs CBC & BMP: 07/26/17 03:15 07/26/17 03:15 Labs: Laboratory Results - last 24 hr 07/24/17 07/25/17 07/25/17 03:47 09:15 09:45 WBC RBC Hgb Hct MCV MCH MCHC RDW Plt Count MPV Neut % (Auto) Lymph % (Auto) [place] % (Auto) Eos % (Auto) Baso % (Auto) Neut # (Auto) Lymph # (Auto) [place] # (Auto) Eos # (Auto) Baso # (Auto) Total Counted Immature Gran % Nucleated RBC % Immature Gran # Segmented Neutrophils Band Neutrophils Lymphocytes Monocytes Nucleated RBCs Nucleated RBCs # Platelet Estimate Immature Plt Fraction Hypochromasia Morphology Comment INR PT Patient/Control Mix Circ Anticoag PTT Patient Temperature 34 33 ABG pH ABG pH at Pt Temp 7.390 7.434 ABG pCO2 ABG pCO2 at Pt Temp 39.2 35.1 ABG pO2 ABG pO2 at Pt Temp 39.8 34.0 ABG HCO3 ABG Total CO2 ABG O2 Saturation ABG Base Excess ABG Sodium 127 L 130 L VBG pH 7.347 7.376 VBG pCO2 45.4 42.5 VBG pO2 48.9 H 44.9 H VBG HCO3 23.4 L 23.8 L VBG Total CO2 22.9 22.5 VBG O2 Saturation 81.3 77.8 VBG Base Excess -0.9 L -0.3 L Hemoglobin 9.9 L D 11.1 L Hematocrit 30.6 L 34.2 L Potassium 5.8 H 5.8 H Glucose 359 H 265 H Ionized Calcium FiO2 80.00 80.00 Sodium Chloride Carbon Dioxide Anion Gap BUN Creatinine GFR Calculation BUN/Creatinine Ratio Calculated Osmolality Calcium Venous Ioniz Calcium 0.97 L 1.04 L Magnesium Total Bilirubin Direct Bilirubin AST ALT Alkaline Phosphatase Total Creatine Kinase CK-MB (CK-2) CK and CKMB Interp Troponin I Total Protein Albumin Globulin Albumin/Globulin Ratio Blood Type A POSITIVE Antibody Screen Negative Crossmatch See Detail 07/25/17 07/25/17 07/25/17 10:48 10:48 12:00 WBC 7.7 D RBC 3.96 D Hgb 12.1 L D Hct 35.1 L MCV 88.6 MCH 31 MCHC 34.5 RDW 13.5 Plt Count 126 L 147 MPV 11.4 Neut % (Auto) 77.3 H Lymph % (Auto) 15.5 L [place] % (Auto) 5.7 Eos % (Auto) 0.5 Baso % (Auto) 0.1 Neut # (Auto) 6.0 Lymph # (Auto) 1.2 L [place] # (Auto) 0.4 Eos # (Auto) 0.0 Baso # (Auto) 0.0 Total Counted 100 Immature Gran % 0.9 Nucleated RBC % 0.0 Immature Gran # 0.07 Segmented Neutrophils 73 Band Neutrophils 2 Lymphocytes 18 L Monocytes 7 Nucleated RBCs 1 Nucleated RBCs # 0.00 Platelet Estimate Adequate Immature Plt Fraction 0.0 Hypochromasia 1+ Morphology Comment INR PT Patient/Control Mix Circ Anticoag PTT Patient Temperature 37 ABG pH 7.369 ABG pH at Pt Temp 7.369 ABG pCO2 39.3 ABG pCO2 at Pt Temp 39.3 ABG pO2 102.5 H ABG pO2 at Pt Temp 102.5 ABG HCO3 22.2 ABG Total CO2 23.4 ABG O2 Saturation 97.4 ABG Base Excess -2.8 L ABG Sodium 131 L VBG pH VBG pCO2 VBG pO2 VBG HCO3 VBG Total CO2 VBG O2 Saturation VBG Base Excess Hemoglobin 12.7 L Hematocrit 37.0 L Potassium 5.2 H Glucose 203 H Ionized Calcium 1.27 FiO2 Sodium Chloride Carbon Dioxide Anion Gap BUN Creatinine GFR Calculation BUN/Creatinine Ratio Calculated Osmolality Calcium Venous Ioniz Calcium Magnesium Total Bilirubin Direct Bilirubin AST ALT Alkaline Phosphatase Total Creatine Kinase CK-MB (CK-2) CK and CKMB Interp Troponin I Total Protein Albumin Globulin Albumin/Globulin Ratio Blood Type Antibody Screen Crossmatch 07/25/17 07/25/17 07/25/17 12:00 12:00 12:00 WBC RBC Hgb Hct MCV MCH MCHC RDW Plt Count MPV Neut % (Auto) Lymph % (Auto) [place] % (Auto) Eos % (Auto) Baso % (Auto) Neut # (Auto) Lymph # (Auto) [place] # (Auto) Eos # (Auto) Baso # (Auto) Total Counted Immature Gran % Nucleated RBC % Immature Gran # Segmented Neutrophils Band Neutrophils Lymphocytes Monocytes Nucleated RBCs Nucleated RBCs # Platelet Estimate Immature Plt Fraction Hypochromasia Morphology Comment INR 1.2 PT Patient/Control Mix 12.9 Circ Anticoag PTT 30.2 Patient Temperature ABG pH 7.397 ABG pH at Pt Temp ABG pCO2 34.5 L ABG pCO2 at Pt Temp ABG pO2 148.9 H ABG pO2 at Pt Temp ABG HCO3 20.7 ABG Total CO2 21.8 L ABG O2 Saturation 98.5 ABG Base Excess -3.4 L ABG Sodium VBG pH VBG pCO2 VBG pO2 VBG HCO3 VBG Total CO2 VBG O2 Saturation VBG Base Excess Hemoglobin 12.3 L Hematocrit 36.0 L Potassium 3.8 3.5 Glucose 159 H 150 H Ionized Calcium FiO2 Sodium 140 Chloride 108 H Carbon Dioxide 23 Anion Gap 12.8 BUN 12 Creatinine 0.80 GFR Calculation 116 BUN/Creatinine Ratio 15.00 Calculated Osmolality 281.4 Calcium 8.0 L Venous Ioniz Calcium Magnesium 2.1 Total Bilirubin 1.10 H Direct Bilirubin AST 41 H ALT 29 Alkaline Phosphatase 42 L Total Creatine Kinase CK-MB (CK-2) CK and CKMB Interp Troponin I Total Protein 5.2 L Albumin 3.0 L Globulin 2.2 L Albumin/Globulin Ratio 1.3 Blood Type Antibody Screen Crossmatch 07/25/17 07/25/17 07/25/17 12:00 14:35 16:50 WBC RBC Hgb Hct MCV MCH MCHC RDW Plt Count MPV Neut % (Auto) Lymph % (Auto) [place] % (Auto) Eos % (Auto) Baso % (Auto) Neut # (Auto) Lymph # (Auto) [place] # (Auto) Eos # (Auto) Baso # (Auto) Total Counted Immature Gran % Nucleated RBC % Immature Gran # Segmented Neutrophils Band Neutrophils Lymphocytes Monocytes Nucleated RBCs Nucleated RBCs # Platelet Estimate Immature Plt Fraction Hypochromasia Morphology Comment INR PT Patient/Control Mix Circ Anticoag PTT Patient Temperature ABG pH 7.345 L 7.265 L ABG pH at Pt Temp ABG pCO2 39.7 45.3 ABG pCO2 at Pt Temp ABG pO2 124.0 H 89.5 ABG pO2 at Pt Temp ABG HCO3 21.3 19.3 L ABG Total CO2 19.6 L 19.3 L ABG O2 Saturation 98.2 95.3 ABG Base Excess -3.7 L -6.2 L ABG Sodium VBG pH VBG pCO2 VBG pO2 VBG HCO3 VBG Total CO2 VBG O2 Saturation VBG Base Excess Hemoglobin 10.8 L 8.6 L D Hematocrit 33.3 L 26.7 L Potassium 4.3 4.2 Glucose 156 H 175 H Ionized Calcium FiO2 Sodium Chloride Carbon Dioxide Anion Gap BUN Creatinine GFR Calculation BUN/Creatinine Ratio Calculated Osmolality Calcium Venous Ioniz Calcium Magnesium Total Bilirubin Direct Bilirubin AST ALT Alkaline Phosphatase Total Creatine Kinase 432 H CK-MB (CK-2) 20.0 H CK and CKMB Interp 4.6 Troponin I 5.250 H Total Protein Albumin Globulin Albumin/Globulin Ratio Blood Type Antibody Screen Crossmatch 07/25/17 07/25/17 07/25/17 18:48 18:48 18:48 WBC RBC Hgb Hct MCV MCH MCHC RDW Plt Count 124 L MPV Neut % (Auto) Lymph % (Auto) [place] % (Auto) Eos % (Auto) Baso % (Auto) Neut # (Auto) Lymph # (Auto) [place] # (Auto) Eos # (Auto) Baso # (Auto) Total Counted Immature Gran % Nucleated RBC % Immature Gran # Segmented Neutrophils Band Neutrophils Lymphocytes Monocytes Nucleated RBCs Nucleated RBCs # Platelet Estimate Immature Plt Fraction Hypochromasia Morphology Comment INR PT Patient/Control Mix Circ Anticoag PTT Patient Temperature ABG pH 7.175 L* ABG pH at Pt Temp ABG pCO2 37.0 ABG pCO2 at Pt Temp ABG pO2 199.0 H ABG pO2 at Pt Temp ABG HCO3 13.6 L ABG Total CO2 12.6 L ABG O2 Saturation 98.6 ABG Base Excess -14.3 L ABG Sodium VBG pH VBG pCO2 VBG pO2 VBG HCO3 VBG Total CO2 VBG O2 Saturation VBG Base Excess Hemoglobin Hematocrit Potassium Glucose Ionized Calcium FiO2 Sodium Chloride Carbon Dioxide Anion Gap BUN Creatinine GFR Calculation BUN/Creatinine Ratio Calculated Osmolality Calcium Venous Ioniz Calcium Magnesium Total Bilirubin Direct Bilirubin AST ALT Alkaline Phosphatase Total Creatine Kinase 565 H D CK-MB (CK-2) 22.6 H CK and CKMB Interp 4.0 Troponin I 7.570 H D Total Protein Albumin Globulin Albumin/Globulin Ratio Blood Type Antibody Screen Crossmatch 07/25/17 07/25/17 07/25/17 19:30 20:35 21:05 WBC RBC Hgb Hct MCV MCH MCHC RDW Plt Count MPV Neut % (Auto) Lymph % (Auto) [place] % (Auto) Eos % (Auto) Baso % (Auto) Neut # (Auto) Lymph # (Auto) [place] # (Auto) Eos # (Auto) Baso # (Auto) Total Counted Immature Gran % Nucleated RBC % Immature Gran # Segmented Neutrophils Band Neutrophils Lymphocytes Monocytes Nucleated RBCs Nucleated RBCs # Platelet Estimate Immature Plt Fraction Hypochromasia Morphology Comment INR PT Patient/Control Mix Circ Anticoag PTT Patient Temperature 37 37 35 ABG pH 7.204 L* ABG pH at Pt Temp 7.204 7.154 7.267 ABG pCO2 39.0 ABG pCO2 at Pt Temp 39.0 45.5 43.6 ABG pO2 175.0 H ABG pO2 at Pt Temp 175.0 47.9 30.9 ABG HCO3 15.0 L ABG Total CO2 14.1 L ABG O2 Saturation 98.5 ABG Base Excess -12.2 L ABG Sodium 143 138 140 VBG pH 7.154 7.240 VBG pCO2 45.5 47.6 VBG pO2 47.9 H 35.6 VBG HCO3 14.5 L 19.9 L VBG Total CO2 15.6 21.4 VBG O2 Saturation 71.6 67.9 VBG Base Excess -12.1 L -7.0 L Hemoglobin 11.5 L D 7.1 L D 7.5 L D Hematocrit 35.5 L 22.2 L 22.0 L Potassium 3.7 4.4 4.1 Glucose 267 H 430 H 318 H Ionized Calcium 1.16 L FiO2 21.00 80.00 Sodium Chloride Carbon Dioxide Anion Gap BUN Creatinine GFR Calculation BUN/Creatinine Ratio Calculated Osmolality Calcium Venous Ioniz Calcium 1.13 L 1.01 Magnesium Total Bilirubin Direct Bilirubin AST ALT Alkaline Phosphatase Total Creatine Kinase CK-MB (CK-2) CK and CKMB Interp Troponin I Total Protein Albumin Globulin Albumin/Globulin Ratio Blood Type Antibody Screen Crossmatch 07/25/17 07/25/17 07/25/17 21:33 21:33 22:30 WBC 19.0 H D RBC 3.14 L D Hgb 9.7 L D Hct 28.4 L MCV 90.4 MCH 31 MCHC 34.2 RDW 14.0 Plt Count 84 L D 100 L MPV 11.6 Neut % (Auto) 84.6 H Lymph % (Auto) 6.8 L [place] % (Auto) 7.6 Eos % (Auto) 0.1 Baso % (Auto) 0.1 Neut # (Auto) 16.1 H Lymph # (Auto) 1.3 L [place] # (Auto) 1.4 H Eos # (Auto) 0.0 Baso # (Auto) 0.0 Total Counted 100 Immature Gran % 0.8 Nucleated RBC % 0.0 Immature Gran # 0.16 Segmented Neutrophils 81 Band Neutrophils 4 Lymphocytes 6 L Monocytes 9 Nucleated RBCs Nucleated RBCs # 0.00 Platelet Estimate Decreased Immature Plt Fraction 0.0 Hypochromasia Morphology Comment INR PT Patient/Control Mix Circ Anticoag PTT Patient Temperature 37 ABG pH 7.378 ABG pH at Pt Temp 7.378 ABG pCO2 30.3 L ABG pCO2 at Pt Temp 30.3 ABG pO2 409.2 H ABG pO2 at Pt Temp 409.2 ABG HCO3 17.4 L ABG Total CO2 18.4 L ABG O2 Saturation 98.9 ABG Base Excess -6.9 L ABG Sodium 143 VBG pH VBG pCO2 VBG pO2 VBG HCO3 VBG Total CO2 VBG O2 Saturation VBG Base Excess Hemoglobin 8.6 L Hematocrit 25.0 L Potassium 4.4 Glucose 284 H Ionized Calcium 1.13 L FiO2 Sodium Chloride Carbon Dioxide Anion Gap BUN Creatinine GFR Calculation BUN/Creatinine Ratio Calculated Osmolality Calcium Venous Ioniz Calcium Magnesium Total Bilirubin Direct Bilirubin AST ALT Alkaline Phosphatase Total Creatine Kinase CK-MB (CK-2) CK and CKMB Interp Troponin I Total Protein Albumin Globulin Albumin/Globulin Ratio Blood Type Antibody Screen Crossmatch 07/25/17 07/25/17 07/25/17 22:30 22:30 22:30 WBC RBC Hgb Hct MCV MCH MCHC RDW Plt Count MPV Neut % (Auto) Lymph % (Auto) [place] % (Auto) Eos % (Auto) Baso % (Auto) Neut # (Auto) Lymph # (Auto) [place] # (Auto) Eos # (Auto) Baso # (Auto) Total Counted Immature Gran % Nucleated RBC % Immature Gran # Segmented Neutrophils Band Neutrophils Lymphocytes Monocytes Nucleated RBCs Nucleated RBCs # Platelet Estimate Immature Plt Fraction Hypochromasia Morphology Comment INR 1.3 PT Patient/Control Mix 13.8 Circ Anticoag PTT 31.0 Patient Temperature ABG pH 7.345 L ABG pH at Pt Temp ABG pCO2 33.0 L ABG pCO2 at Pt Temp ABG pO2 182.2 H ABG pO2 at Pt Temp ABG HCO3 17.6 L ABG Total CO2 18.6 L ABG O2 Saturation 98.1 ABG Base Excess -7.2 L ABG Sodium VBG pH VBG pCO2 VBG pO2 VBG HCO3 VBG Total CO2 VBG O2 Saturation VBG Base Excess Hemoglobin 10.4 L D Hematocrit 31.0 L Potassium 4.3 4.2 Glucose 288 H 260 H Ionized Calcium FiO2 Sodium 146 H Chloride 105 Carbon Dioxide 19 L Anion Gap 26.3 H BUN 16 Creatinine 1.50 H GFR Calculation 60 BUN/Creatinine Ratio 10.00 Calculated Osmolality 301.6 Calcium 9.1 Venous Ioniz Calcium Magnesium 2.0 Total Bilirubin 2.30 H Direct Bilirubin AST 238 H ALT 44 Alkaline Phosphatase 28 L Total Creatine Kinase 2470 H D CK-MB (CK-2) 135.4 H D CK and CKMB Interp 5.5 Troponin I 77.100 H D Total Protein 4.6 L Albumin 3.3 L Globulin 1.3 L Albumin/Globulin Ratio 2.5 H Blood Type Antibody Screen Crossmatch 07/25/17 07/26/17 07/26/17 23:15 00:45 02:00 WBC RBC Hgb Hct MCV MCH MCHC RDW Plt Count MPV Neut % (Auto) Lymph % (Auto) [place] % (Auto) Eos % (Auto) Baso % (Auto) Neut # (Auto) Lymph # (Auto) [place] # (Auto) Eos # (Auto) Baso # (Auto) Total Counted Immature Gran % Nucleated RBC % Immature Gran # Segmented Neutrophils Band Neutrophils Lymphocytes Monocytes Nucleated RBCs Nucleated RBCs # Platelet Estimate Immature Plt Fraction Hypochromasia Morphology Comment INR PT Patient/Control Mix Circ Anticoag PTT Patient Temperature ABG pH 7.336 L 7.379 7.417 ABG pH at Pt Temp ABG pCO2 36.3 41.4 42.2 ABG pCO2 at Pt Temp ABG pO2 131.2 H 131.0 H 123.0 H ABG pO2 at Pt Temp ABG HCO3 19.0 L 23.9 26.6 H ABG Total CO2 20.1 L 22.2 L 24.8 ABG O2 Saturation 97.9 98.7 98.5 ABG Base Excess -6.2 L -0.7 2.5 ABG Sodium VBG pH VBG pCO2 VBG pO2 VBG HCO3 VBG Total CO2 VBG O2 Saturation VBG Base Excess Hemoglobin 11.0 L 10.0 L D 9.8 L Hematocrit 32.0 L 31.1 L 30.3 L Potassium 4.1 4.3 4.4 Glucose 245 H 247 H 226 H Ionized Calcium FiO2 Sodium Chloride Carbon Dioxide Anion Gap BUN Creatinine GFR Calculation BUN/Creatinine Ratio Calculated Osmolality Calcium Venous Ioniz Calcium Magnesium Total Bilirubin Direct Bilirubin AST ALT Alkaline Phosphatase Total Creatine Kinase CK-MB (CK-2) CK and CKMB Interp Troponin I Total Protein Albumin Globulin Albumin/Globulin Ratio Blood Type Antibody Screen Crossmatch 07/26/17 07/26/17 07/26/17 03:15 03:15 03:15 WBC 14.5 H RBC 3.20 L Hgb 9.8 L Hct 28.2 L MCV 88.1 MCH 31 MCHC 34.8 RDW 13.6 Plt Count 100 L MPV 12.3 H Neut % (Auto) 83.1 H Lymph % (Auto) 6.8 L [place] % (Auto) 9.2 Eos % (Auto) 0.0 Baso % (Auto) 0.1 Neut # (Auto) 12.1 H Lymph # (Auto) 1.0 L [place] # (Auto) 1.3 H Eos # (Auto) 0.0 Baso # (Auto) 0.0 Total Counted Immature Gran % 0.8 Nucleated RBC % 0.0 Immature Gran # 0.11 Segmented Neutrophils Band Neutrophils Lymphocytes Monocytes Nucleated RBCs Nucleated RBCs # 0.00 Platelet Estimate Immature Plt Fraction 0.0 Hypochromasia Morphology Comment INR PT Patient/Control Mix Circ Anticoag PTT Patient Temperature ABG pH ABG pH at Pt Temp ABG pCO2 ABG pCO2 at Pt Temp ABG pO2 ABG pO2 at Pt Temp ABG HCO3 ABG Total CO2 ABG O2 Saturation ABG Base Excess ABG Sodium VBG pH VBG pCO2 VBG pO2 VBG HCO3 VBG Total CO2 VBG O2 Saturation VBG Base Excess Hemoglobin Hematocrit Potassium 4.4 Glucose 189 H Ionized Calcium FiO2 Sodium 148 H Chloride 109 H Carbon Dioxide 29 Anion Gap 14.4 BUN 17 Creatinine 1.30 GFR Calculation 71 BUN/Creatinine Ratio 13.00 Calculated Osmolality 300.3 Calcium 9.5 Venous Ioniz Calcium Magnesium 2.0 Total Bilirubin 1.70 H Direct Bilirubin 0.290 H AST 413 H ALT 68 H Alkaline Phosphatase 30 L Total Creatine Kinase 4138 H D CK-MB (CK-2) 262.0 H D CK and CKMB Interp 6.3 Troponin I 132.000 H D Total Protein 5.5 L Albumin 4.0 Globulin 1.5 L Albumin/Globulin Ratio 2.6 H Blood Type Antibody Screen Crossmatch 07/26/17 07/26/17 07/26/17 03:15 04:32 06:20 WBC RBC Hgb Hct MCV MCH MCHC RDW Plt Count MPV Neut % (Auto) Lymph % (Auto) [place] % (Auto) Eos % (Auto) Baso % (Auto) Neut # (Auto) Lymph # (Auto) [place] # (Auto) Eos # (Auto) Baso # (Auto) Total Counted Immature Gran % Nucleated RBC % Immature Gran # Segmented Neutrophils Band Neutrophils Lymphocytes Monocytes Nucleated RBCs Nucleated RBCs # Platelet Estimate Immature Plt Fraction Hypochromasia Morphology Comment INR PT Patient/Control Mix Circ Anticoag PTT Patient Temperature ABG pH 7.477 H 7.525 H 7.411 ABG pH at Pt Temp ABG pCO2 39.6 33.4 L 47.1 ABG pCO2 at Pt Temp ABG pO2 105.8 H 114.0 H 98.6 H ABG pO2 at Pt Temp ABG HCO3 28.6 H 27.0 H 29.3 H ABG Total CO2 29.8 H 28.0 H 30.7 H ABG O2 Saturation 97.2 97.6 96.6 ABG Base Excess 4.8 H 4.3 H 4.0 H ABG Sodium VBG pH VBG pCO2 VBG pO2 VBG HCO3 VBG Total CO2 VBG O2 Saturation VBG Base Excess Hemoglobin 10.3 L 10.3 L 10.5 L Hematocrit 30.0 L 30.0 L 31.0 L Potassium 4.3 4.2 4.0 Glucose 190 H 164 H 156 H Ionized Calcium FiO2 Sodium Chloride Carbon Dioxide Anion Gap BUN Creatinine GFR Calculation BUN/Creatinine Ratio Calculated Osmolality Calcium Venous Ioniz Calcium Magnesium Total Bilirubin Direct Bilirubin AST ALT Alkaline Phosphatase Total Creatine Kinase CK-MB (CK-2) CK and CKMB Interp Troponin I Total Protein Albumin Globulin Albumin/Globulin Ratio Blood Type Antibody Screen Crossmatch Quality Measures - VTE Contraindication to Pharmacological VTE Prophylaxis: High Risk of Bleeding
--- NOTE | 2017-07-26 09:21 | Cardiothoracic Progress Note ---
Cardiothoracic Subjective Interval history: Patient is awake alert and extubated. Vital signs have been stable through the night and he is breathing comfortably this morning with satisfactory blood gases post extubation. Cardiac output is in the range of 5 L/min. Urine output has been excellent and creatinine is 1.3 this morning. Chest tube output is minimal and his chest tubes are discontinued. 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 Hopefully this will trend down fairly rapidly. Overall his progress appears satisfactory given his very complicated early postoperative course. Exam (Progress Note) - Constitutional Vitals: Period Temp Pulse Resp BP Sys/Bal[place]zar Pulse Ox Last 24 Hr 95.8 F-98.8 F 47-102 10-28 71-171/40-81 95-100 Result/EKG - Labs CBC & BMP: 07/26/17 03:15 07/26/17 03:15 Labs: Laboratory Results - last 24 hr 07/24/17 07/25/17 07/25/17 03:47 09:15 09:45 WBC RBC Hgb Hct MCV MCH MCHC RDW Plt Count MPV Neut % (Auto) Lymph % (Auto) [place] % (Auto) Eos % (Auto) Baso % (Auto) Neut # (Auto) Lymph # (Auto) [place] # (Auto) Eos # (Auto) Baso # (Auto) Total Counted Immature Gran % Nucleated RBC % Immature Gran # Segmented Neutrophils Band Neutrophils Lymphocytes Monocytes Nucleated RBCs Nucleated RBCs # Platelet Estimate Immature Plt Fraction Hypochromasia Morphology Comment INR PT Patient/Control Mix Circ Anticoag PTT Patient Temperature 34 33 ABG pH ABG pH at Pt Temp 7.390 7.434 ABG pCO2 ABG pCO2 at Pt Temp 39.2 35.1 ABG pO2 ABG pO2 at Pt Temp 39.8 34.0 ABG HCO3 ABG Total CO2 ABG O2 Saturation ABG Base Excess ABG Sodium 127 L 130 L VBG pH 7.347 7.376 VBG pCO2 45.4 42.5 VBG pO2 48.9 H 44.9 H VBG HCO3 23.4 L 23.8 L VBG Total CO2 22.9 22.5 VBG O2 Saturation 81.3 77.8 VBG Base Excess -0.9 L -0.3 L Hemoglobin 9.9 L D 11.1 L Hematocrit 30.6 L 34.2 L Potassium 5.8 H 5.8 H Glucose 359 H 265 H Ionized Calcium FiO2 80.00 80.00 Sodium Chloride Carbon Dioxide Anion Gap BUN Creatinine GFR Calculation BUN/Creatinine Ratio Calculated Osmolality Calcium Venous Ioniz Calcium 0.97 L 1.04 L Magnesium Total Bilirubin Direct Bilirubin AST ALT Alkaline Phosphatase Total Creatine Kinase CK-MB (CK-2) CK and CKMB Interp Troponin I Total Protein Albumin Globulin Albumin/Globulin Ratio Blood Type A POSITIVE Antibody Screen Negative Crossmatch See Detail 07/25/17 07/25/17 07/25/17 10:48 10:48 12:00 WBC 7.7 D RBC 3.96 D Hgb 12.1 L D Hct 35.1 L MCV 88.6 MCH 31 MCHC 34.5 RDW 13.5 Plt Count 126 L 147 MPV 11.4 Neut % (Auto) 77.3 H Lymph % (Auto) 15.5 L [place] % (Auto) 5.7 Eos % (Auto) 0.5 Baso % (Auto) 0.1 Neut # (Auto) 6.0 Lymph # (Auto) 1.2 L [place] # (Auto) 0.4 Eos # (Auto) 0.0 Baso # (Auto) 0.0 Total Counted 100 Immature Gran % 0.9 Nucleated RBC % 0.0 Immature Gran # 0.07 Segmented Neutrophils 73 Band Neutrophils 2 Lymphocytes 18 L Monocytes 7 Nucleated RBCs 1 Nucleated RBCs # 0.00 Platelet Estimate Adequate Immature Plt Fraction 0.0 Hypochromasia 1+ Morphology Comment INR PT Patient/Control Mix Circ Anticoag PTT Patient Temperature 37 ABG pH 7.369 ABG pH at Pt Temp 7.369 ABG pCO2 39.3 ABG pCO2 at Pt Temp 39.3 ABG pO2 102.5 H ABG pO2 at Pt Temp 102.5 ABG HCO3 22.2 ABG Total CO2 23.4 ABG O2 Saturation 97.4 ABG Base Excess -2.8 L ABG Sodium 131 L VBG pH VBG pCO2 VBG pO2 VBG HCO3 VBG Total CO2 VBG O2 Saturation VBG Base Excess Hemoglobin 12.7 L Hematocrit 37.0 L Potassium 5.2 H Glucose 203 H Ionized Calcium 1.27 FiO2 Sodium Chloride Carbon Dioxide Anion Gap BUN Creatinine GFR Calculation BUN/Creatinine Ratio Calculated Osmolality Calcium Venous Ioniz Calcium Magnesium Total Bilirubin Direct Bilirubin AST ALT Alkaline Phosphatase Total Creatine Kinase CK-MB (CK-2) CK and CKMB Interp Troponin I Total Protein Albumin Globulin Albumin/Globulin Ratio Blood Type Antibody Screen Crossmatch 07/25/17 07/25/17 07/25/17 12:00 12:00 12:00 WBC RBC Hgb Hct MCV MCH MCHC RDW Plt Count MPV Neut % (Auto) Lymph % (Auto) [place] % (Auto) Eos % (Auto) Baso % (Auto) Neut # (Auto) Lymph # (Auto) [place] # (Auto) Eos # (Auto) Baso # (Auto) Total Counted Immature Gran % Nucleated RBC % Immature Gran # Segmented Neutrophils Band Neutrophils Lymphocytes Monocytes Nucleated RBCs Nucleated RBCs # Platelet Estimate Immature Plt Fraction Hypochromasia Morphology Comment INR 1.2 PT Patient/Control Mix 12.9 Circ Anticoag PTT 30.2 Patient Temperature ABG pH 7.397 ABG pH at Pt Temp ABG pCO2 34.5 L ABG pCO2 at Pt Temp ABG pO2 148.9 H ABG pO2 at Pt Temp ABG HCO3 20.7 ABG Total CO2 21.8 L ABG O2 Saturation 98.5 ABG Base Excess -3.4 L ABG Sodium VBG pH VBG pCO2 VBG pO2 VBG HCO3 VBG Total CO2 VBG O2 Saturation VBG Base Excess Hemoglobin 12.3 L Hematocrit 36.0 L Potassium 3.8 3.5 Glucose 159 H 150 H Ionized Calcium FiO2 Sodium 140 Chloride 108 H Carbon Dioxide 23 Anion Gap 12.8 BUN 12 Creatinine 0.80 GFR Calculation 116 BUN/Creatinine Ratio 15.00 Calculated Osmolality 281.4 Calcium 8.0 L Venous Ioniz Calcium Magnesium 2.1 Total Bilirubin 1.10 H Direct Bilirubin AST 41 H ALT 29 Alkaline Phosphatase 42 L Total Creatine Kinase CK-MB (CK-2) CK and CKMB Interp Troponin I Total Protein 5.2 L Albumin 3.0 L Globulin 2.2 L Albumin/Globulin Ratio 1.3 Blood Type Antibody Screen Crossmatch 07/25/17 07/25/17 07/25/17 12:00 14:35 16:50 WBC RBC Hgb Hct MCV MCH MCHC RDW Plt Count MPV Neut % (Auto) Lymph % (Auto) [place] % (Auto) Eos % (Auto) Baso % (Auto) Neut # (Auto) Lymph # (Auto) [place] # (Auto) Eos # (Auto) Baso # (Auto) Total Counted Immature Gran % Nucleated RBC % Immature Gran # Segmented Neutrophils Band Neutrophils Lymphocytes Monocytes Nucleated RBCs Nucleated RBCs # Platelet Estimate Immature Plt Fraction Hypochromasia Morphology Comment INR PT Patient/Control Mix Circ Anticoag PTT Patient Temperature ABG pH 7.345 L 7.265 L ABG pH at Pt Temp ABG pCO2 39.7 45.3 ABG pCO2 at Pt Temp ABG pO2 124.0 H 89.5 ABG pO2 at Pt Temp ABG HCO3 21.3 19.3 L ABG Total CO2 19.6 L 19.3 L ABG O2 Saturation 98.2 95.3 ABG Base Excess -3.7 L -6.2 L ABG Sodium VBG pH VBG pCO2 VBG pO2 VBG HCO3 VBG Total CO2 VBG O2 Saturation VBG Base Excess Hemoglobin 10.8 L 8.6 L D Hematocrit 33.3 L 26.7 L Potassium 4.3 4.2 Glucose 156 H 175 H Ionized Calcium FiO2 Sodium Chloride Carbon Dioxide Anion Gap BUN Creatinine GFR Calculation BUN/Creatinine Ratio Calculated Osmolality Calcium Venous Ioniz Calcium Magnesium Total Bilirubin Direct Bilirubin AST ALT Alkaline Phosphatase Total Creatine Kinase 432 H CK-MB (CK-2) 20.0 H CK and CKMB Interp 4.6 Troponin I 5.250 H Total Protein Albumin Globulin Albumin/Globulin Ratio Blood Type Antibody Screen Crossmatch 07/25/17 07/25/17 07/25/17 18:48 18:48 18:48 WBC RBC Hgb Hct MCV MCH MCHC RDW Plt Count 124 L MPV Neut % (Auto) Lymph % (Auto) [place] % (Auto) Eos % (Auto) Baso % (Auto) Neut # (Auto) Lymph # (Auto) [place] # (Auto) Eos # (Auto) Baso # (Auto) Total Counted Immature Gran % Nucleated RBC % Immature Gran # Segmented Neutrophils Band Neutrophils Lymphocytes Monocytes Nucleated RBCs Nucleated RBCs # Platelet Estimate Immature Plt Fraction Hypochromasia Morphology Comment INR PT Patient/Control Mix Circ Anticoag PTT Patient Temperature ABG pH 7.175 L* ABG pH at Pt Temp ABG pCO2 37.0 ABG pCO2 at Pt Temp ABG pO2 199.0 H ABG pO2 at Pt Temp ABG HCO3 13.6 L ABG Total CO2 12.6 L ABG O2 Saturation 98.6 ABG Base Excess -14.3 L ABG Sodium VBG pH VBG pCO2 VBG pO2 VBG HCO3 VBG Total CO2 VBG O2 Saturation VBG Base Excess Hemoglobin Hematocrit Potassium Glucose Ionized Calcium FiO2 Sodium Chloride Carbon Dioxide Anion Gap BUN Creatinine GFR Calculation BUN/Creatinine Ratio Calculated Osmolality Calcium Venous Ioniz Calcium Magnesium Total Bilirubin Direct Bilirubin AST ALT Alkaline Phosphatase Total Creatine Kinase 565 H D CK-MB (CK-2) 22.6 H CK and CKMB Interp 4.0 Troponin I 7.570 H D Total Protein Albumin Globulin Albumin/Globulin Ratio Blood Type Antibody Screen Crossmatch 07/25/17 07/25/17 07/25/17 19:30 20:35 21:05 WBC RBC Hgb Hct MCV MCH MCHC RDW Plt Count MPV Neut % (Auto) Lymph % (Auto) [place] % (Auto) Eos % (Auto) Baso % (Auto) Neut # (Auto) Lymph # (Auto) [place] # (Auto) Eos # (Auto) Baso # (Auto) Total Counted Immature Gran % Nucleated RBC % Immature Gran # Segmented Neutrophils Band Neutrophils Lymphocytes Monocytes Nucleated RBCs Nucleated RBCs # Platelet Estimate Immature Plt Fraction Hypochromasia Morphology Comment INR PT Patient/Control Mix Circ Anticoag PTT Patient Temperature 37 37 35 ABG pH 7.204 L* ABG pH at Pt Temp 7.204 7.154 7.267 ABG pCO2 39.0 ABG pCO2 at Pt Temp 39.0 45.5 43.6 ABG pO2 175.0 H ABG pO2 at Pt Temp 175.0 47.9 30.9 ABG HCO3 15.0 L ABG Total CO2 14.1 L ABG O2 Saturation 98.5 ABG Base Excess -12.2 L ABG Sodium 143 138 140 VBG pH 7.154 7.240 VBG pCO2 45.5 47.6 VBG pO2 47.9 H 35.6 VBG HCO3 14.5 L 19.9 L VBG Total CO2 15.6 21.4 VBG O2 Saturation 71.6 67.9 VBG Base Excess -12.1 L -7.0 L Hemoglobin 11.5 L D 7.1 L D 7.5 L D Hematocrit 35.5 L 22.2 L 22.0 L Potassium 3.7 4.4 4.1 Glucose 267 H 430 H 318 H Ionized Calcium 1.16 L FiO2 21.00 80.00 Sodium Chloride Carbon Dioxide Anion Gap BUN Creatinine GFR Calculation BUN/Creatinine Ratio Calculated Osmolality Calcium Venous Ioniz Calcium 1.13 L 1.01 Magnesium Total Bilirubin Direct Bilirubin AST ALT Alkaline Phosphatase Total Creatine Kinase CK-MB (CK-2) CK and CKMB Interp Troponin I Total Protein Albumin Globulin Albumin/Globulin Ratio Blood Type Antibody Screen Crossmatch 07/25/17 07/25/17 07/25/17 21:33 21:33 22:30 WBC 19.0 H D RBC 3.14 L D Hgb 9.7 L D Hct 28.4 L MCV 90.4 MCH 31 MCHC 34.2 RDW 14.0 Plt Count 84 L D 100 L MPV 11.6 Neut % (Auto) 84.6 H Lymph % (Auto) 6.8 L [place] % (Auto) 7.6 Eos % (Auto) 0.1 Baso % (Auto) 0.1 Neut # (Auto) 16.1 H Lymph # (Auto) 1.3 L [place] # (Auto) 1.4 H Eos # (Auto) 0.0 Baso # (Auto) 0.0 Total Counted 100 Immature Gran % 0.8 Nucleated RBC % 0.0 Immature Gran # 0.16 Segmented Neutrophils 81 Band Neutrophils 4 Lymphocytes 6 L Monocytes 9 Nucleated RBCs Nucleated RBCs # 0.00 Platelet Estimate Decreased Immature Plt Fraction 0.0 Hypochromasia Morphology Comment INR PT Patient/Control Mix Circ Anticoag PTT Patient Temperature 37 ABG pH 7.378 ABG pH at Pt Temp 7.378 ABG pCO2 30.3 L ABG pCO2 at Pt Temp 30.3 ABG pO2 409.2 H ABG pO2 at Pt Temp 409.2 ABG HCO3 17.4 L ABG Total CO2 18.4 L ABG O2 Saturation 98.9 ABG Base Excess -6.9 L ABG Sodium 143 VBG pH VBG pCO2 VBG pO2 VBG HCO3 VBG Total CO2 VBG O2 Saturation VBG Base Excess Hemoglobin 8.6 L Hematocrit 25.0 L Potassium 4.4 Glucose 284 H Ionized Calcium 1.13 L FiO2 Sodium Chloride Carbon Dioxide Anion Gap BUN Creatinine GFR Calculation BUN/Creatinine Ratio Calculated Osmolality Calcium Venous Ioniz Calcium Magnesium Total Bilirubin Direct Bilirubin AST ALT Alkaline Phosphatase Total Creatine Kinase CK-MB (CK-2) CK and CKMB Interp Troponin I Total Protein Albumin Globulin Albumin/Globulin Ratio Blood Type Antibody Screen Crossmatch 07/25/17 07/25/17 07/25/17 22:30 22:30 22:30 WBC RBC Hgb Hct MCV MCH MCHC RDW Plt Count MPV Neut % (Auto) Lymph % (Auto) [place] % (Auto) Eos % (Auto) Baso % (Auto) Neut # (Auto) Lymph # (Auto) [place] # (Auto) Eos # (Auto) Baso # (Auto) Total Counted Immature Gran % Nucleated RBC % Immature Gran # Segmented Neutrophils Band Neutrophils Lymphocytes Monocytes Nucleated RBCs Nucleated RBCs # Platelet Estimate Immature Plt Fraction Hypochromasia Morphology Comment INR 1.3 PT Patient/Control Mix 13.8 Circ Anticoag PTT 31.0 Patient Temperature ABG pH 7.345 L ABG pH at Pt Temp ABG pCO2 33.0 L ABG pCO2 at Pt Temp ABG pO2 182.2 H ABG pO2 at Pt Temp ABG HCO3 17.6 L ABG Total CO2 18.6 L ABG O2 Saturation 98.1 ABG Base Excess -7.2 L ABG Sodium VBG pH VBG pCO2 VBG pO2 VBG HCO3 VBG Total CO2 VBG O2 Saturation VBG Base Excess Hemoglobin 10.4 L D Hematocrit 31.0 L Potassium 4.3 4.2 Glucose 288 H 260 H Ionized Calcium FiO2 Sodium 146 H Chloride 105 Carbon Dioxide 19 L Anion Gap 26.3 H BUN 16 Creatinine 1.50 H GFR Calculation 60 BUN/Creatinine Ratio 10.00 Calculated Osmolality 301.6 Calcium 9.1 Venous Ioniz Calcium Magnesium 2.0 Total Bilirubin 2.30 H Direct Bilirubin AST 238 H ALT 44 Alkaline Phosphatase 28 L Total Creatine Kinase 2470 H D CK-MB (CK-2) 135.4 H D CK and CKMB Interp 5.5 Troponin I 77.100 H D Total Protein 4.6 L Albumin 3.3 L Globulin 1.3 L Albumin/Globulin Ratio 2.5 H Blood Type Antibody Screen Crossmatch 07/25/17 07/26/17 07/26/17 23:15 00:45 02:00 WBC RBC Hgb Hct MCV MCH MCHC RDW Plt Count MPV Neut % (Auto) Lymph % (Auto) [place] % (Auto) Eos % (Auto) Baso % (Auto) Neut # (Auto) Lymph # (Auto) [place] # (Auto) Eos # (Auto) Baso # (Auto) Total Counted Immature Gran % Nucleated RBC % Immature Gran # Segmented Neutrophils Band Neutrophils Lymphocytes Monocytes Nucleated RBCs Nucleated RBCs # Platelet Estimate Immature Plt Fraction Hypochromasia Morphology Comment INR PT Patient/Control Mix Circ Anticoag PTT Patient Temperature ABG pH 7.336 L 7.379 7.417 ABG pH at Pt Temp ABG pCO2 36.3 41.4 42.2 ABG pCO2 at Pt Temp ABG pO2 131.2 H 131.0 H 123.0 H ABG pO2 at Pt Temp ABG HCO3 19.0 L 23.9 26.6 H ABG Total CO2 20.1 L 22.2 L 24.8 ABG O2 Saturation 97.9 98.7 98.5 ABG Base Excess -6.2 L -0.7 2.5 ABG Sodium VBG pH VBG pCO2 VBG pO2 VBG HCO3 VBG Total CO2 VBG O2 Saturation VBG Base Excess Hemoglobin 11.0 L 10.0 L D 9.8 L Hematocrit 32.0 L 31.1 L 30.3 L Potassium 4.1 4.3 4.4 Glucose 245 H 247 H 226 H Ionized Calcium FiO2 Sodium Chloride Carbon Dioxide Anion Gap BUN Creatinine GFR Calculation BUN/Creatinine Ratio Calculated Osmolality Calcium Venous Ioniz Calcium Magnesium Total Bilirubin Direct Bilirubin AST ALT Alkaline Phosphatase Total Creatine Kinase CK-MB (CK-2) CK and CKMB Interp Troponin I Total Protein Albumin Globulin Albumin/Globulin Ratio Blood Type Antibody Screen Crossmatch 07/26/17 07/26/17 07/26/17 03:15 03:15 03:15 WBC 14.5 H RBC 3.20 L Hgb 9.8 L Hct 28.2 L MCV 88.1 MCH 31 MCHC 34.8 RDW 13.6 Plt Count 100 L MPV 12.3 H Neut % (Auto) 83.1 H Lymph % (Auto) 6.8 L [place] % (Auto) 9.2 Eos % (Auto) 0.0 Baso % (Auto) 0.1 Neut # (Auto) 12.1 H Lymph # (Auto) 1.0 L [place] # (Auto) 1.3 H Eos # (Auto) 0.0 Baso # (Auto) 0.0 Total Counted Immature Gran % 0.8 Nucleated RBC % 0.0 Immature Gran # 0.11 Segmented Neutrophils Band Neutrophils Lymphocytes Monocytes Nucleated RBCs Nucleated RBCs # 0.00 Platelet Estimate Immature Plt Fraction 0.0 Hypochromasia Morphology Comment INR PT Patient/Control Mix Circ Anticoag PTT Patient Temperature ABG pH ABG pH at Pt Temp ABG pCO2 ABG pCO2 at Pt Temp ABG pO2 ABG pO2 at Pt Temp ABG HCO3 ABG Total CO2 ABG O2 Saturation ABG Base Excess ABG Sodium VBG pH VBG pCO2 VBG pO2 VBG HCO3 VBG Total CO2 VBG O2 Saturation VBG Base Excess Hemoglobin Hematocrit Potassium 4.4 Glucose 189 H Ionized Calcium FiO2 Sodium 148 H Chloride 109 H Carbon Dioxide 29 Anion Gap 14.4 BUN 17 Creatinine 1.30 GFR Calculation 71 BUN/Creatinine Ratio 13.00 Calculated Osmolality 300.3 Calcium 9.5 Venous Ioniz Calcium Magnesium 2.0 Total Bilirubin 1.70 H Direct Bilirubin 0.290 H AST 413 H ALT 68 H Alkaline Phosphatase 30 L Total Creatine Kinase 4138 H D CK-MB (CK-2) 262.0 H D CK and CKMB Interp 6.3 Troponin I 132.000 H D Total Protein 5.5 L Albumin 4.0 Globulin 1.5 L Albumin/Globulin Ratio 2.6 H Blood Type Antibody Screen Crossmatch 07/26/17 07/26/17 07/26/17 03:15 04:32 06:20 WBC RBC Hgb Hct MCV MCH MCHC RDW Plt Count MPV Neut % (Auto) Lymph % (Auto) [place] % (Auto) Eos % (Auto) Baso % (Auto) Neut # (Auto) Lymph # (Auto) [place] # (Auto) Eos # (Auto) Baso # (Auto) Total Counted Immature Gran % Nucleated RBC % Immature Gran # Segmented Neutrophils Band Neutrophils Lymphocytes Monocytes Nucleated RBCs Nucleated RBCs # Platelet Estimate Immature Plt Fraction Hypochromasia Morphology Comment INR PT Patient/Control Mix Circ Anticoag PTT Patient Temperature ABG pH 7.477 H 7.525 H 7.411 ABG pH at Pt Temp ABG pCO2 39.6 33.4 L 47.1 ABG pCO2 at Pt Temp ABG pO2 105.8 H 114.0 H 98.6 H ABG pO2 at Pt Temp ABG HCO3 28.6 H 27.0 H 29.3 H ABG Total CO2 29.8 H 28.0 H 30.7 H ABG O2 Saturation 97.2 97.6 96.6 ABG Base Excess 4.8 H 4.3 H 4.0 H ABG Sodium VBG pH VBG pCO2 VBG pO2 VBG HCO3 VBG Total CO2 VBG O2 Saturation VBG Base Excess Hemoglobin 10.3 L 10.3 L 10.5 L Hematocrit 30.0 L 30.0 L 31.0 L Potassium 4.3 4.2 4.0 Glucose 190 H 164 H 156 H Ionized Calcium FiO2 Sodium Chloride Carbon Dioxide Anion Gap BUN Creatinine GFR Calculation BUN/Creatinine Ratio Calculated Osmolality Calcium Venous Ioniz Calcium Magnesium Total Bilirubin Direct Bilirubin AST ALT Alkaline Phosphatase Total Creatine Kinase CK-MB (CK-2) CK and CKMB Interp Troponin I Total Protein Albumin Globulin Albumin/Globulin Ratio Blood Type Antibody Screen Crossmatch Quality Measures - VTE Contraindication to Pharmacological VTE Prophylaxis: High Risk of Bleeding
[2017-07-26] MEDS ORDERED: GLUCAGON 1 MG VIAL IM PRN (09:24)
[2017-07-26] MEDS ORDERED: DEXTROSE 50% 25 GM/50 ML SYRINGE IV PRN (09:24)
--- NOTE | 2017-07-26 10:13 | XRay Report ---
Exam: XR chest 1V portable Date: 07/26/2017 851 AM Indication: Follow-up cardiac surgery Comparison: 07/25/2017 Technical: AP Findings The endotracheal tube and nasogastric tube have been removed. Sternotomy wires are present. A [place] catheter has been placed from a right subclavian approach with the distal tip in the left pulmonary artery. Right IJ catheter is present. Tiny interstitial thickening changes in the perihilar regions. No obvious air in the pericardium demonstrated as compared to earlier film and no pneumothorax. External cardiac leads are present. Impression: 1. Interval movement endotracheal tube and nasogastric tube 2. Interval placement of [place] catheter from a right-sided approach with distal tip in the left pulmonary artery. 3. Mild interstitial edema, atelectatic change right base 4. Single mediastinal drain is suspected. PROCEDURE INTERPRETED AT [facility] DEPARTMENT OF RADIOLOGY Final Report Signed by: Dr. Aries Benavides
[2017-07-26] MEDS: VANCOMYCIN INJ 1,500 MG in SODIUM CHLORIDE 0.9% 500 ML IV SCH (13:43)
[2017-07-26] MEDS: SODIUM CHLORIDE 0.45% 1,000 ML IV SCH ×2 (13:57)
[2017-07-26] MEDS ORDERED: SODIUM CHLOR 0.45% KCL 20 MEQ 20 MEQ/1,000 ML BAG IV SCH (14:00)
[2017-07-26 14:45] LABS: CKMB % 4.7 %; Troponin I Only 84.3 NG/ML (0.00-0.045)
[2017-07-26] MEDS: metFORMIN 500 MG TABLET PO SCH (21:09)
[2017-07-26] MEDS ORDERED: HEPARIN/NACL 0.9% 2 UNITS/ML 500 ML IV ONE (22:14)
[2017-07-27] MEDS: INSULIN REGULAR 100 UNIT/ML SUBCUT SCH ×4 (00:20→14:19)
[2017-07-27] MEDS: DOBUTamine 500 MG/250 ML PREMIX IV SCH (01:07)
[2017-07-27] MEDS: VANCOMYCIN INJ 1,500 MG in SODIUM CHLORIDE 0.9% 500 ML IV SCH ×2 (01:08→14:35)
[2017-07-27] MEDS: CEFUROXIME INJ 1,500 MG in SODIUM CHLORIDE 0.9% 100 ML IV SCH (01:08)
[2017-07-27] MEDS: MORPHINE 10 MG/1 ML VIAL IV PRN (01:45)
[2017-07-27 04:21] LABS: Basophils % 0.1 % (0.0-0.8); Eosinophils % 0.1 % (0.00-10.9); Hematocrit 33.9 VOL% (42.0-52.0); Hemoglobin 11.9 GM/DL (14.0-18.0); Immature Granulocytes % 0.4 %; Immature Granulocytes Absolute 0.05 #; Lymphocytes # 1.4 10*3/uL (1.4-4.0); Lymphocytes % 10.3 % (21.2-54.2); Mean Corpuscular HGB Conc 35.1 GM/DL (32-36); Mean Corpuscular Hemoglobin 31 PG (27-34); Mean Corpuscular Volume 87.1 FL (87-102); Mean Platelet Volume 11.8 FL (9.6-12.0); Monocytes # 1.1 10*3/uL (0.11-0.8); Monocytes % 8.2 % (1.7-12.7); Neutrophils # 11.1 10*3/uL (1.4-7.4); Neutrophils % 80.9 % (38.7-73.9); Red Blood Count 3.89 MC/CUMM (3.8-5.5); Red Cell Distribution Width 14.6 % (9.3-17.3); White Blood Count 13.7 T/CUMM (4-12)
[2017-07-27 04:23] LABS: ABG Base Excess 2.8 MMOL/L (-2.5-2.5); ABG HCO3 26.6 MMOL/L (20-26); ABG PCO2 38.3 MM HG (35-48); ABG PH 7.459 (7.35-7.45); ABG PO2 72.5 MM HG (80-95); ABG TCO2 27.7 MMOL/L (23-27)
[2017-07-27 04:25] LABS: Platelet Count 63 T/CUMM (130-400)
[2017-07-27 04:28] LABS: ABG Oxygen Saturation 95.4 % (95-100)
[2017-07-27 04:52] LABS: Albumin 3.4 G/DL (3.4-5.0); Bilirubin,Direct 0.18 MG/DL (0.0-0.20); Bilirubin,Total 0.8 MG/DL (0.2-1.0); Calcium 8.3 MG/DL (8.5-10.1); Osmolality,Calculated 282.3 MOS/KG (273-304)
[2017-07-27] MEDS: MORPHINE 2 MG/1 ML SYRINGE IV PRN (05:38)
[2017-07-27 06:54] LABS: Band Neutrophils 4 % (0-10); Hypochromasia 1+; Lymphocytes 6 % (20-55); Platelet Estimate Decreased; Segmented Neutrophils 88 % (50-85); Total Cells Counted 100
--- NOTE | 2017-07-27 08:21 | Cardiothoracic Progress Note ---
Cardiothoracic Subjective Interval history: Patient is awake alert and extubated. He has some generalized soreness but otherwise feels okay. Vital signs have been stable and cardiac output is 5.3 L/ min. Blood gases are satisfactory postextubation and urine output has been good with a normal creatinine. His troponin is trending down fairly rapidly. Overall his progress is satisfactory and I think he can be transferred to telemetry this morning. Exam (Progress Note) - Constitutional Vitals: Period Temp Pulse Resp BP Sys/Baltazar Pulse Ox Last 24 Hr 96.8 F-99.9 F 83-90 10-25 113-196/46-94 92-96 Result/EKG - Labs CBC & BMP: 07/27/17 03:50 07/27/17 03:50 Labs: Laboratory Results - last 24 hr 07/24/17 07/25/17 07/26/17 03:47 19:09 02:06 WBC RBC Hgb Hct MCV MCH MCHC RDW Plt Count MPV Neut % (Auto) Lymph % (Auto) [place] % (Auto) Eos % (Auto) Baso % (Auto) Neut # (Auto) Lymph # (Auto) [place] # (Auto) Eos # (Auto) Baso # (Auto) Total Counted Immature Gran % Nucleated RBC % Immature Gran # Segmented Neutrophils Band Neutrophils Lymphocytes Monocytes Nucleated RBCs # Platelet Estimate Immature Plt Fraction Hypochromasia Morphology Comment ABG pH ABG pCO2 ABG pO2 ABG HCO3 ABG Total CO2 ABG O2 Saturation ABG Base Excess Sodium Potassium Chloride Carbon Dioxide Anion Gap BUN Creatinine GFR Calculation BUN/Creatinine Ratio Glucose POC Glucose 231 H 221 H Calculated Osmolality Calcium Magnesium Total Bilirubin Direct Bilirubin AST ALT Alkaline Phosphatase Total Creatine Kinase CK-MB (CK-2) CK and CKMB Interp Troponin I Total Protein Albumin Globulin Albumin/Globulin Ratio Blood Type A POSITIVE Antibody Screen Negative Crossmatch See Detail 07/26/17 07/26/17 07/26/17 03:13 04:08 07:16 WBC RBC Hgb Hct MCV MCH MCHC RDW Plt Count MPV Neut % (Auto) Lymph % (Auto) [place] % (Auto) Eos % (Auto) Baso % (Auto) Neut # (Auto) Lymph # (Auto) [place] # (Auto) Eos # (Auto) Baso # (Auto) Total Counted Immature Gran % Nucleated RBC % Immature Gran # Segmented Neutrophils Band Neutrophils Lymphocytes Monocytes Nucleated RBCs # Platelet Estimate Immature Plt Fraction Hypochromasia Morphology Comment ABG pH ABG pCO2 ABG pO2 ABG HCO3 ABG Total CO2 ABG O2 Saturation ABG Base Excess Sodium Potassium Chloride Carbon Dioxide Anion Gap BUN Creatinine GFR Calculation BUN/Creatinine Ratio Glucose POC Glucose 207 H 154 H 152 H Calculated Osmolality Calcium Magnesium Total Bilirubin Direct Bilirubin AST ALT Alkaline Phosphatase Total Creatine Kinase CK-MB (CK-2) CK and CKMB Interp Troponin I Total Protein Albumin Globulin Albumin/Globulin Ratio Blood Type Antibody Screen Crossmatch 07/26/17 07/26/17 07/26/17 08:02 09:10 10:29 WBC RBC Hgb Hct MCV MCH MCHC RDW Plt Count MPV Neut % (Auto) Lymph % (Auto) [place] % (Auto) Eos % (Auto) Baso % (Auto) Neut # (Auto) Lymph # (Auto) [place] # (Auto) Eos # (Auto) Baso # (Auto) Total Counted Immature Gran % Nucleated RBC % Immature Gran # Segmented Neutrophils Band Neutrophils Lymphocytes Monocytes Nucleated RBCs # Platelet Estimate Immature Plt Fraction Hypochromasia Morphology Comment ABG pH ABG pCO2 ABG pO2 ABG HCO3 ABG Total CO2 ABG O2 Saturation ABG Base Excess Sodium Potassium Chloride Carbon Dioxide Anion Gap BUN Creatinine GFR Calculation BUN/Creatinine Ratio Glucose POC Glucose 125 H 156 H 198 H Calculated Osmolality Calcium Magnesium Total Bilirubin Direct Bilirubin AST ALT Alkaline Phosphatase Total Creatine Kinase CK-MB (CK-2) CK and CKMB Interp Troponin I Total Protein Albumin Globulin Albumin/Globulin Ratio Blood Type Antibody Screen Crossmatch 07/26/17 07/26/17 07/26/17 13:48 14:01 16:25 WBC RBC Hgb Hct MCV MCH MCHC RDW Plt Count MPV Neut % (Auto) Lymph % (Auto) [place] % (Auto) Eos % (Auto) Baso % (Auto) Neut # (Auto) Lymph # (Auto) [place] # (Auto) Eos # (Auto) Baso # (Auto) Total Counted Immature Gran % Nucleated RBC % Immature Gran # Segmented Neutrophils Band Neutrophils Lymphocytes Monocytes Nucleated RBCs # Platelet Estimate Immature Plt Fraction Hypochromasia Morphology Comment ABG pH ABG pCO2 ABG pO2 ABG HCO3 ABG Total CO2 ABG O2 Saturation ABG Base Excess Sodium Potassium Chloride Carbon Dioxide Anion Gap BUN Creatinine GFR Calculation BUN/Creatinine Ratio Glucose POC Glucose 257 H 224 H Calculated Osmolality Calcium Magnesium Total Bilirubin Direct Bilirubin AST ALT Alkaline Phosphatase Total Creatine Kinase 4096 H CK-MB (CK-2) 191.2 H D CK and CKMB Interp 4.7 Troponin I 84.300 H D Total Protein Albumin Globulin Albumin/Globulin Ratio Blood Type Antibody Screen Crossmatch 07/26/17 07/26/17 07/26/17 18:11 20:07 23:37 WBC RBC Hgb Hct MCV MCH MCHC RDW Plt Count MPV Neut % (Auto) Lymph % (Auto) [place] % (Auto) Eos % (Auto) Baso % (Auto) Neut # (Auto) Lymph # (Auto) [place] # (Auto) Eos # (Auto) Baso # (Auto) Total Counted Immature Gran % Nucleated RBC % Immature Gran # Segmented Neutrophils Band Neutrophils Lymphocytes Monocytes Nucleated RBCs # Platelet Estimate Immature Plt Fraction Hypochromasia Morphology Comment ABG pH ABG pCO2 ABG pO2 ABG HCO3 ABG Total CO2 ABG O2 Saturation ABG Base Excess Sodium Potassium Chloride Carbon Dioxide Anion Gap BUN Creatinine GFR Calculation BUN/Creatinine Ratio Glucose POC Glucose 239 H 226 H 136 H Calculated Osmolality Calcium Magnesium Total Bilirubin Direct Bilirubin AST ALT Alkaline Phosphatase Total Creatine Kinase CK-MB (CK-2) CK and CKMB Interp Troponin I Total Protein Albumin Globulin Albumin/Globulin Ratio Blood Type Antibody Screen Crossmatch 07/27/17 07/27/17 07/27/17 03:50 03:50 03:50 WBC 13.7 H RBC 3.89 D Hgb 11.9 L D Hct 33.9 L MCV 87.1 MCH 31 MCHC 35.1 RDW 14.6 Plt Count 63 L D MPV 11.8 Neut % (Auto) 80.9 H Lymph % (Auto) 10.3 L [place] % (Auto) 8.2 Eos % (Auto) 0.1 Baso % (Auto) 0.1 Neut # (Auto) 11.1 H Lymph # (Auto) 1.4 [place] # (Auto) 1.1 H Eos # (Auto) 0.0 Baso # (Auto) 0.0 Total Counted 100 Immature Gran % 0.4 Nucleated RBC % 0.0 Immature Gran # 0.05 Segmented Neutrophils 88 H Band Neutrophils 4 Lymphocytes 6 L Monocytes 2 Nucleated RBCs # 0.00 Platelet Estimate Decreased Immature Plt Fraction 0.0 Hypochromasia 1+ Morphology Comment ABG pH 7.459 H ABG pCO2 38.3 ABG pO2 72.5 L ABG HCO3 26.6 H ABG Total CO2 27.7 H ABG O2 Saturation 95.4 ABG Base Excess 2.8 H Sodium 141 Potassium 4.0 Chloride 107 Carbon Dioxide 30 Anion Gap 8.0 BUN 16 Creatinine 0.80 GFR Calculation 120 BUN/Creatinine Ratio 20.00 Glucose 120 H POC Glucose Calculated Osmolality 282.3 Calcium 8.3 L Magnesium 2.0 Total Bilirubin 0.80 Direct Bilirubin 0.180 AST 279 H ALT 73 H Alkaline Phosphatase 35 L Total Creatine Kinase CK-MB (CK-2) CK and CKMB Interp Troponin I Total Protein 5.0 L Albumin 3.4 Globulin 1.6 L Albumin/Globulin Ratio 2.1 Blood Type Antibody Screen Crossmatch 07/27/17 04:13 WBC RBC Hgb Hct MCV MCH MCHC RDW Plt Count MPV Neut % (Auto) Lymph % (Auto) [place] % (Auto) Eos % (Auto) Baso % (Auto) Neut # (Auto) Lymph # (Auto) [place] # (Auto) Eos # (Auto) Baso # (Auto) Total Counted Immature Gran % Nucleated RBC % Immature Gran # Segmented Neutrophils Band Neutrophils Lymphocytes Monocytes Nucleated RBCs # Platelet Estimate Immature Plt Fraction Hypochromasia Morphology Comment ABG pH ABG pCO2 ABG pO2 ABG HCO3 ABG Total CO2 ABG O2 Saturation ABG Base Excess Sodium Potassium Chloride Carbon Dioxide Anion Gap BUN Creatinine GFR Calculation BUN/Creatinine Ratio Glucose POC Glucose 126 H Calculated Osmolality Calcium Magnesium Total Bilirubin Direct Bilirubin AST ALT Alkaline Phosphatase Total Creatine Kinase CK-MB (CK-2) CK and CKMB Interp Troponin I Total Protein Albumin Globulin Albumin/Globulin Ratio Blood Type Antibody Screen Crossmatch Quality Measures - VTE Contraindication to Pharmacological VTE Prophylaxis: High Risk of Bleeding
--- NOTE | 2017-07-27 08:51 | XRay Report ---
Exam: XR chest 1V portable Date: 07/27/2017 259 AM Indication: Postop chest tube removal Comparison: 07/26/2017 Technical: AP Findings: Sternotomy wires are present. A right IJ catheter is present. A right subclavian [place]-Magdaleno catheter with the distal tip in the pulmonary arteries present. The small tube over the left lateral chest mediastinum has been removed. No pneumothorax. Minimal fluid along the minor fissure. Impression: 1. Interval removal of the mediastinal drain thoracotomy tube left base 2. Stable position of the remaining life-support catheters the previous sternotomy with tiny low-volume effusion without pneumothorax PROCEDURE INTERPRETED AT [facility] DEPARTMENT OF RADIOLOGY Final Report Signed by: Dr. Aries Benavides
[2017-07-27] MEDS: amLODIPine 10 MG TABLET PO SCH (08:54)
[2017-07-27] MEDS: metFORMIN 500 MG TABLET PO SCH ×2 (08:55→20:51)
[2017-07-27] MEDS: ASPIRIN 325 MG TABLET PO SCH (08:55)
[2017-07-27] MEDS: ATORVASTATIN 40 MG TABLET PO SCH (08:55)
[2017-07-27] MEDS: CHLORHEXIDINE 0.12% ORAL RINSE 60 ML BOTTLE SWISH/SPIT SCH ×3 (08:57→20:51)
[2017-07-27] MEDS: oxyCODONE/ACETAMINOPHEN 5-325 MG TABLET PO PRN (11:17)
[2017-07-27] MEDS ORDERED: GLUCAGON 1 MG VIAL IM PRN ×2 (12:14)
[2017-07-27] MEDS ORDERED: ALUMINUM/MAGNES/SIMETH MAX STR 30 ML UDCUP PO PRN (12:14)
[2017-07-27] MEDS ORDERED: ACETAMINOPHEN 325 MG TABLET PO PRN (12:14)
[2017-07-27] MEDS ORDERED: MORPHINE 2 MG/1 ML SYRINGE IV PRN (12:14)
[2017-07-27] MEDS ORDERED: ONDANSETRON 4 MG/2 ML VIAL IV PRN (12:14)
[2017-07-27] MEDS ORDERED: SODIUM CHLOR 0.45% KCL 20 MEQ 20 MEQ/1,000 ML BAG IV SCH (12:14)
[2017-07-27] MEDS ORDERED: ZALEPLON 5 MG CAPSULE PO PRN (12:14)
[2017-07-27] MEDS ORDERED: oxyCODONE/ACETAMINOPHEN 5-325 MG TABLET PO PRN (12:14)
[2017-07-27] MEDS ORDERED: DEXTROSE 50% 25 GM/50 ML SYRINGE IV PRN (12:14)
[2017-07-27] MEDS ORDERED: MAGNESIUM HYDROXIDE SUSP 30 ML UDCUP PO PRN (12:14)
[2017-07-27] MEDS ORDERED: DEXTROSE 50% 25 GM/50 ML VIAL IV PRN (12:14)
[2017-07-27] MEDS ORDERED: MAGNESIUM SULF RIDER 2 GM in PREMIX 1 EACH IV PRN (12:14)
[2017-07-27] MEDS ORDERED: MAGNESIUM SULF RIDER 4 GM in PREMIX 1 EACH IV PRN (12:14)
--- NOTE | 2017-07-27 12:37 | Cardiology Progress Note ---
Assessment and Plan (1) Coronary artery disease Status: Chronic Assessment and plan: Status post coronary bypass graft redo to the right doing quite well postoperatively. Routine postoperative care. He is doing quite well. Current Visit: Yes Qualifiers: Coronary Disease-Associated Artery/Lesion type: bypass graft [place] vs. transplanted heart: [place] heart Associated angina: without angina Qualified Code(s): I25.810 - Atherosclerosis of coronary artery bypass graft(s) without angina pectoris (2) Hypertension Status: Chronic Current Visit: Yes Qualifiers: Hypertension type: essential hypertension Qualified Code(s): I10 - Essential (primary) hypertension (3) HLD (hyperlipidemia) Status: Chronic Current Visit: Yes (4) Diabetes mellitus Status: Chronic Current Visit: Yes Qualifiers: Diabetes mellitus type: type 2 (5) Obstructive sleep apnea Status: Acute Assessment and plan: newly diagnosed Current Visit: Yes Cardiology - PN: Subj Interval history: Mr. Arvizu was seen on the floor today. He was sitting at recliner looking very comfortable. He denies any complaints. His sternotomy incision in both lower extremity incisions look good. He is in sinus rhythm with a low voltage on telemetry. Exam (Progress Note) - Constitutional Vitals: Period Temp Pulse Resp BP Sys/Baltazar Pulse Ox Last 24 Hr 96.8 F-100.3 F 83-90 10-25 113-196/46-94 92-96 General appearance: normal weight - Head Head exam: Present: normal inspection - Eye Eye exam: Present: EOMI Pupils: Present: ROSE - Respiratory Respiratory exam: Present: clear to auscultation bilaterally - Cardiovascular Cardiovascular exam: Present: regular rate and rhythm (Rub resolved) - GI/Abdominal GI/Abdominal exam: Present: normal bowel sounds - Extremities Exam Extremities exam: Present: other (Incisions are clean and dry) - Neurological Exam Neurological exam: Present: alert, oriented X3 - Psychiatric Psychiatric exam: Present: normal affect, normal mood - Skin Skin exam: Present: normal color, warm, dry Result/EKG - Labs CBC & BMP: 07/27/17 03:50 07/27/17 03:50 Labs: Laboratory Results - last 24 hr 07/24/17 07/26/17 07/26/17 03:47 10:29 13:48 WBC RBC Hgb Hct MCV MCH MCHC RDW Plt Count MPV Neut % (Auto) Lymph % (Auto) [place] % (Auto) Eos % (Auto) Baso % (Auto) Neut # (Auto) Lymph # (Auto) [place] # (Auto) Eos # (Auto) Baso # (Auto) Total Counted Immature Gran % Nucleated RBC % Immature Gran # Segmented Neutrophils Band Neutrophils Lymphocytes Monocytes Nucleated RBCs # Platelet Estimate Immature Plt Fraction Hypochromasia Morphology Comment ABG pH ABG pCO2 ABG pO2 ABG HCO3 ABG Total CO2 ABG O2 Saturation ABG Base Excess Sodium Potassium Chloride Carbon Dioxide Anion Gap BUN Creatinine GFR Calculation BUN/Creatinine Ratio Glucose POC Glucose 198 H Calculated Osmolality Calcium Magnesium Total Bilirubin Direct Bilirubin AST ALT Alkaline Phosphatase Total Creatine Kinase 4096 H CK-MB (CK-2) 191.2 H D CK and CKMB Interp 4.7 Troponin I 84.300 H D Total Protein Albumin Globulin Albumin/Globulin Ratio Blood Type A POSITIVE Antibody Screen Negative Crossmatch See Detail 07/26/17 07/26/17 07/26/17 14:01 16:25 18:11 WBC RBC Hgb Hct MCV MCH MCHC RDW Plt Count MPV Neut % (Auto) Lymph % (Auto) [place] % (Auto) Eos % (Auto) Baso % (Auto) Neut # (Auto) Lymph # (Auto) [place] # (Auto) Eos # (Auto) Baso # (Auto) Total Counted Immature Gran % Nucleated RBC % Immature Gran # Segmented Neutrophils Band Neutrophils Lymphocytes Monocytes Nucleated RBCs # Platelet Estimate Immature Plt Fraction Hypochromasia Morphology Comment ABG pH ABG pCO2 ABG pO2 ABG HCO3 ABG Total CO2 ABG O2 Saturation ABG Base Excess Sodium Potassium Chloride Carbon Dioxide Anion Gap BUN Creatinine GFR Calculation BUN/Creatinine Ratio Glucose POC Glucose 257 H 224 H 239 H Calculated Osmolality Calcium Magnesium Total Bilirubin Direct Bilirubin AST ALT Alkaline Phosphatase Total Creatine Kinase CK-MB (CK-2) CK and CKMB Interp Troponin I Total Protein Albumin Globulin Albumin/Globulin Ratio Blood Type Antibody Screen Crossmatch 07/26/17 07/26/17 07/27/17 20:07 23:37 03:50 WBC 13.7 H RBC 3.89 D Hgb 11.9 L D Hct 33.9 L MCV 87.1 MCH 31 MCHC 35.1 RDW 14.6 Plt Count 63 L D MPV 11.8 Neut % (Auto) 80.9 H Lymph % (Auto) 10.3 L [place] % (Auto) 8.2 Eos % (Auto) 0.1 Baso % (Auto) 0.1 Neut # (Auto) 11.1 H Lymph # (Auto) 1.4 [place] # (Auto) 1.1 H Eos # (Auto) 0.0 Baso # (Auto) 0.0 Total Counted 100 Immature Gran % 0.4 Nucleated RBC % 0.0 Immature Gran # 0.05 Segmented Neutrophils 88 H Band Neutrophils 4 Lymphocytes 6 L Monocytes 2 Nucleated RBCs # 0.00 Platelet Estimate Decreased Immature Plt Fraction 0.0 Hypochromasia 1+ Morphology Comment ABG pH ABG pCO2 ABG pO2 ABG HCO3 ABG Total CO2 ABG O2 Saturation ABG Base Excess Sodium Potassium Chloride Carbon Dioxide Anion Gap BUN Creatinine GFR Calculation BUN/Creatinine Ratio Glucose POC Glucose 226 H 136 H Calculated Osmolality Calcium Magnesium Total Bilirubin Direct Bilirubin AST ALT Alkaline Phosphatase Total Creatine Kinase CK-MB (CK-2) CK and CKMB Interp Troponin I Total Protein Albumin Globulin Albumin/Globulin Ratio Blood Type Antibody Screen Crossmatch 07/27/17 07/27/17 07/27/17 03:50 03:50 04:13 WBC RBC Hgb Hct MCV MCH MCHC RDW Plt Count MPV Neut % (Auto) Lymph % (Auto) [place] % (Auto) Eos % (Auto) Baso % (Auto) Neut # (Auto) Lymph # (Auto) [place] # (Auto) Eos # (Auto) Baso # (Auto) Total Counted Immature Gran % Nucleated RBC % Immature Gran # Segmented Neutrophils Band Neutrophils Lymphocytes Monocytes Nucleated RBCs # Platelet Estimate Immature Plt Fraction Hypochromasia Morphology Comment ABG pH 7.459 H ABG pCO2 38.3 ABG pO2 72.5 L ABG HCO3 26.6 H ABG Total CO2 27.7 H ABG O2 Saturation 95.4 ABG Base Excess 2.8 H Sodium 141 Potassium 4.0 Chloride 107 Carbon Dioxide 30 Anion Gap 8.0 BUN 16 Creatinine 0.80 GFR Calculation 120 BUN/Creatinine Ratio 20.00 Glucose 120 H POC Glucose 126 H Calculated Osmolality 282.3 Calcium 8.3 L Magnesium 2.0 Total Bilirubin 0.80 Direct Bilirubin 0.180 AST 279 H ALT 73 H Alkaline Phosphatase 35 L Total Creatine Kinase CK-MB (CK-2) CK and CKMB Interp Troponin I Total Protein 5.0 L Albumin 3.4 Globulin 1.6 L Albumin/Globulin Ratio 2.1 Blood Type Antibody Screen Crossmatch 07/27/17 07/27/17 08:20 12:27 WBC RBC Hgb Hct MCV MCH MCHC RDW Plt Count MPV Neut % (Auto) Lymph % (Auto) [place] % (Auto) Eos % (Auto) Baso % (Auto) Neut # (Auto) Lymph # (Auto) [place] # (Auto) Eos # (Auto) Baso # (Auto) Total Counted Immature Gran % Nucleated RBC % Immature Gran # Segmented Neutrophils Band Neutrophils Lymphocytes Monocytes Nucleated RBCs # Platelet Estimate Immature Plt Fraction Hypochromasia Morphology Comment ABG pH ABG pCO2 ABG pO2 ABG HCO3 ABG Total CO2 ABG O2 Saturation ABG Base Excess Sodium Potassium Chloride Carbon Dioxide Anion Gap BUN Creatinine GFR Calculation BUN/Creatinine Ratio Glucose POC Glucose 135 H 135 H Calculated Osmolality Calcium Magnesium Total Bilirubin Direct Bilirubin AST ALT Alkaline Phosphatase Total Creatine Kinase CK-MB (CK-2) CK and CKMB Interp Troponin I Total Protein Albumin Globulin Albumin/Globulin Ratio Blood Type Antibody Screen Crossmatch Quality Measures - VTE Contraindication to Pharmacological VTE Prophylaxis: High Risk of Bleeding
[2017-07-27] MEDS: ASPIRIN EC 325 MG TABLET PO SCH (12:42)
[2017-07-27] MEDS: KETOROLAC 30 MG/1 ML VIAL IM SCH ×2 (14:00→18:15)
[2017-07-27] MEDS: DOCUSATE SODIUM 100 MG CAPSULE PO SCH (14:00)
[2017-07-27] MEDS: PANTOPRAZOLE 40 MG TABLET PO SCH (14:00)
[2017-07-27] MEDS: FERROUS SULFATE 325 MG TABLET PO SCH (14:00)
[2017-07-28] MEDS: VANCOMYCIN INJ 1,500 MG in SODIUM CHLORIDE 0.9% 500 ML IV SCH (00:40)
[2017-07-28] MEDS: KETOROLAC 30 MG/1 ML VIAL IM SCH ×4 (00:42→17:57)
[2017-07-28 05:28] LABS: Basophils % 0.2 % (0.0-0.8); Eosinophils # 0.1 10*3/uL (0.0-0.87); Eosinophils % 0.4 % (0.00-10.9); Hematocrit 29.7 VOL% (42.0-52.0); Hemoglobin 10.3 GM/DL (14.0-18.0); Immature Granulocytes % 0.9 %; Immature Granulocytes Absolute 0.16 #; Lymphocytes % 10.9 % (21.2-54.2); Mean Corpuscular HGB Conc 34.7 GM/DL (32-36); Mean Corpuscular Hemoglobin 31 PG (27-34); Mean Corpuscular Volume 88.9 FL (87-102); Mean Platelet Volume 13.2 FL (9.6-12.0); Monocytes # 1.7 10*3/uL (0.11-0.8); Monocytes % 9.1 % (1.7-12.7); NRBC # 0.03 10*3/uL; Neutrophils # 14.7 10*3/uL (1.4-7.4); Neutrophils % 78.5 % (38.7-73.9); Red Blood Count 3.34 MC/CUMM (3.8-5.5); Red Cell Distribution Width 14.4 % (9.3-17.3)
[2017-07-28 05:30] LABS: Platelet Count 95 T/CUMM (130-400); White Blood Count 18.7 T/CUMM (4-12)
[2017-07-28 05:48] LABS: Hypochromasia 1+; Lymphocytes 10 % (20-55); Ovalocytes Slight; Platelet Estimate Decreased; Segmented Neutrophils 82 % (50-85); Total Cells Counted 100
[2017-07-28 05:49] LABS: Giant Platelets Few
[2017-07-28] MEDS ORDERED: FUROSEMIDE 40 MG/4 ML VIAL IV ONE (06:00)
[2017-07-28 06:22] LABS: Albumin 3.5 G/DL (3.4-5.0); Bilirubin,Direct 0.37 MG/DL (0.0-0.20); Bilirubin,Indirect 1.3 MG/DL (0.0-1.0); Bilirubin,Total 1.7 MG/DL (0.2-1.0); CKMB % 0.6 %; Calcium 8.2 MG/DL (8.5-10.1); Magnesium 2.2 MG/DL (1.8-2.4); Osmolality,Calculated 278.8 MOS/KG (273-304); Potassium 3.9 MMOL/L (3.5-5.1); Total Protein 5.7 G/DL (6.4-8.3)
[2017-07-28 06:26] LABS: Troponin I Only 39.1 NG/ML (0.00-0.045)
--- NOTE | 2017-07-28 06:30 | Cardiothoracic Progress Note ---
Cardiothoracic Subjective Interval history: Patient looks and feels better. He is somewhat less sore. Vital signs have been stable and is breathing comfortably. Lab work looks essentially okay for postoperative day 3 and his troponins have trended down fairly rapidly. We will try to increase his activity some today according to routine postoperative protocol but overall he seems to be making satisfactory progress following a complicated initial operative and postoperative course. Exam (Progress Note) - Constitutional Vitals: Period Temp Pulse Resp BP Sys/Baltazar Pulse Ox Last 24 Hr 98.4 F-100.8 F 84-92 16-22 124-161/64-79 90-95 Result/EKG - Labs CBC & BMP: 07/28/17 04:00 07/28/17 Unknown Labs: Laboratory Results - last 24 hr 07/24/17 07/27/17 07/27/17 03:47 03:50 08:20 WBC RBC Hgb Hct MCV MCH MCHC RDW Plt Count MPV Neut % (Auto) Lymph % (Auto) [place] % (Auto) Eos % (Auto) Baso % (Auto) Neut # (Auto) Lymph # (Auto) [place] # (Auto) Eos # (Auto) Baso # (Auto) Total Counted 100 Immature Gran % Nucleated RBC % Immature Gran # Segmented Neutrophils 88 H Band Neutrophils 4 Lymphocytes 6 L Monocytes 2 Nucleated RBCs # Platelet Estimate Decreased Giant Platelets Immature Plt Fraction Hypochromasia 1+ Ovalocytes Morphology Comment Sodium Potassium Chloride Carbon Dioxide Anion Gap BUN Creatinine GFR Calculation BUN/Creatinine Ratio Glucose POC Glucose 135 H Calculated Osmolality Calcium Magnesium Total Bilirubin Direct Bilirubin Indirect Bilirubin AST ALT Alkaline Phosphatase Total Creatine Kinase CK-MB (CK-2) CK and CKMB Interp Troponin I Total Protein Albumin Globulin Albumin/Globulin Ratio Vancomycin Trough Crossmatch See Detail 07/27/17 07/27/17 07/27/17 12:27 16:24 20:55 WBC RBC Hgb Hct MCV MCH MCHC RDW Plt Count MPV Neut % (Auto) Lymph % (Auto) [place] % (Auto) Eos % (Auto) Baso % (Auto) Neut # (Auto) Lymph # (Auto) [place] # (Auto) Eos # (Auto) Baso # (Auto) Total Counted Immature Gran % Nucleated RBC % Immature Gran # Segmented Neutrophils Band Neutrophils Lymphocytes Monocytes Nucleated RBCs # Platelet Estimate Giant Platelets Immature Plt Fraction Hypochromasia Ovalocytes Morphology Comment Sodium Potassium Chloride Carbon Dioxide Anion Gap BUN Creatinine GFR Calculation BUN/Creatinine Ratio Glucose POC Glucose 135 H 167 H 186 H Calculated Osmolality Calcium Magnesium Total Bilirubin Direct Bilirubin Indirect Bilirubin AST ALT Alkaline Phosphatase Total Creatine Kinase CK-MB (CK-2) CK and CKMB Interp Troponin I Total Protein Albumin Globulin Albumin/Globulin Ratio Vancomycin Trough Crossmatch 07/28/17 07/28/17 07/28/17 00:48 04:00 04:12 WBC 18.7 H D RBC 3.34 L Hgb 10.3 L Hct 29.7 L MCV 88.9 MCH 31 MCHC 34.7 RDW 14.4 Plt Count 95 L D MPV 13.2 H Neut % (Auto) 78.5 H Lymph % (Auto) 10.9 L [place] % (Auto) 9.1 Eos % (Auto) 0.4 Baso % (Auto) 0.2 Neut # (Auto) 14.7 H Lymph # (Auto) 2.0 [place] # (Auto) 1.7 H Eos # (Auto) 0.1 Baso # (Auto) 0.0 Total Counted 100 Immature Gran % 0.9 Nucleated RBC % 0.2 Immature Gran # 0.16 Segmented Neutrophils 82 Band Neutrophils Lymphocytes 10 L Monocytes 8 Nucleated RBCs # 0.03 Platelet Estimate Decreased Giant Platelets Few Immature Plt Fraction 11.3 H Hypochromasia 1+ Ovalocytes Slight Morphology Comment Sodium Potassium Chloride Carbon Dioxide Anion Gap BUN Creatinine GFR Calculation BUN/Creatinine Ratio Glucose POC Glucose 145 H 218 H Calculated Osmolality Calcium Magnesium Total Bilirubin Direct Bilirubin Indirect Bilirubin AST ALT Alkaline Phosphatase Total Creatine Kinase CK-MB (CK-2) CK and CKMB Interp Troponin I Total Protein Albumin Globulin Albumin/Globulin Ratio Vancomycin Trough Crossmatch 07/28/17 07/28/17 Unknown Unknown WBC RBC Hgb Hct MCV MCH MCHC RDW Plt Count MPV Neut % (Auto) Lymph % (Auto) [place] % (Auto) Eos % (Auto) Baso % (Auto) Neut # (Auto) Lymph # (Auto) [place] # (Auto) Eos # (Auto) Baso # (Auto) Total Counted Immature Gran % Nucleated RBC % Immature Gran # Segmented Neutrophils Band Neutrophils Lymphocytes Monocytes Nucleated RBCs # Platelet Estimate Giant Platelets Immature Plt Fraction Hypochromasia Ovalocytes Morphology Comment Sodium 137 Potassium 3.9 Chloride 102 Carbon Dioxide 25 Anion Gap 13.9 BUN 18 Creatinine 1.00 GFR Calculation 102 BUN/Creatinine Ratio 18.00 Glucose 179 H POC Glucose Calculated Osmolality 278.8 Calcium 8.2 L Magnesium 2.2 Total Bilirubin 1.70 H Direct Bilirubin 0.370 H Indirect Bilirubin 1.3 H AST 158 H ALT 71 H Alkaline Phosphatase 59 Total Creatine Kinase 1754 H D CK-MB (CK-2) 10.1 H D CK and CKMB Interp 0.6 Troponin I 39.100 H D Total Protein 5.7 L Albumin 3.5 Globulin 2.2 L Albumin/Globulin Ratio 1.5 Vancomycin Trough 23.1 H Crossmatch Quality Measures - VTE Contraindication to Pharmacological VTE Prophylaxis: High Risk of Bleeding
--- NOTE | 2017-07-28 07:58 | XRay Report ---
Portable chest Date: 07/28/2017 Clinical history: Shortness of breath Comparison: 07/27/2017 Technique: Portable AP sitting chest Findings: The heart is normal in size with recent median sternotomy. Removal of the [place]-Magdaleno catheter with stable right IJ CVP line. Minimal atelectasis and small right pleural effusion. Calcified granulomata. No obvious pneumothorax with stable mediastinum and osseous structures. Impression: Recent median sternotomy with residual atelectasis and small right pleural effusion. No pneumothorax. PROCEDURE INTERPRETED AT [facility] [place] DEPARTMENT OF RADIOLOGY Final Report Signed by: Dr. Rossana Garcia
[2017-07-28] MEDS: DOCUSATE SODIUM 100 MG CAPSULE PO SCH (08:49)
[2017-07-28] MEDS: PANTOPRAZOLE 40 MG TABLET PO SCH (08:49)
[2017-07-28] MEDS: amLODIPine 10 MG TABLET PO SCH (08:49)
[2017-07-28] MEDS: ATORVASTATIN 40 MG TABLET PO SCH (08:49)
[2017-07-28] MEDS: ASPIRIN 325 MG TABLET PO SCH (08:49)
[2017-07-28] MEDS: metFORMIN 500 MG TABLET PO SCH ×2 (08:49→21:40)
[2017-07-28] MEDS: FERROUS SULFATE 325 MG TABLET PO SCH (08:49)
[2017-07-28] MEDS: LOSARTAN 25 MG TABLET PO SCH (08:49)
[2017-07-28] MEDS: ASPIRIN EC 325 MG TABLET PO SCH (08:56)
[2017-07-28] MEDS: CHLORHEXIDINE 0.12% ORAL RINSE 60 ML BOTTLE SWISH/SPIT SCH ×2 (08:56→21:41)
[2017-07-28] MEDS ORDERED: VANCOMYCIN INJ 1,500 MG in SODIUM CHLORIDE 0.9% 500 ML IV SCH (12:00)
--- NOTE | 2017-07-28 12:56 | Sleep Medicine Progress Note ---
Assessment and Plan (1) Obstructive sleep apnea Status: Acute Assessment and plan: We will look at resetting his starting pressure on his auto titration device and make sure the machine is functioning correctly. We will follow-up daily downloads for compliance and results. Current Visit: Yes Sleep Medicine Subjective Interval history: Patient has done well after heart surgery. He has been using CPAP for his obstructive sleep apnea but is not tolerating it well. He feels like the pressure is not working. He does not feel like he is getting enough pressure. We will have the sleep lab, up and check his machine and check his mask fit and see if we can get a pressure that is better suited for him. Exam (Progress Note) - Constitutional Vitals: Period Temp Pulse Resp BP Sys/Baltazar Pulse Ox Last 24 Hr 97.8 F-100.8 F 84-92 16-20 124-155/66-80 90-96 Exam: He is alert and responsive in no acute distress. HEENT unremarkable. Neck supple without adenopathy. Chest with good air movement and no significant wheeze or rhonchi. Cardiac exam reveals a regular rhythm. Abdomen soft nontender extremities without calf tenderness. Neurologically, he is grossly intact. Results - Labs CBC & BMP: 07/28/17 04:00 07/28/17 Unknown Lab Results: I have reviewed the past 24 hour labs Specialty Discharge - Follow Up or Referrals
--- NOTE | 2017-07-28 15:56 | Cardiology Progress Note ---
Assessment and Plan - Time spent with patient Time spent with patient: Less than 30 minutes (1) S/P CABG x 3 Status: Acute Assessment and plan: See plan of care listed below. Current Visit: Yes (2) Coronary artery disease Status: Chronic Assessment and plan: See plan of care listed below. Current Visit: Yes Qualifiers: Coronary Disease-Associated Artery/Lesion type: bypass graft [place] vs. transplanted heart: [place] heart Associated angina: without angina Qualified Code(s): I25.810 - Atherosclerosis of coronary artery bypass graft(s) without angina pectoris (3) Hypertension Status: Chronic Assessment and plan: See plan of care listed below. Current Visit: Yes Qualifiers: Hypertension type: essential hypertension Qualified Code(s): I10 - Essential (primary) hypertension (4) HLD (hyperlipidemia) Status: Chronic Assessment and plan: See plan of care listed below. Current Visit: Yes (5) Diabetes mellitus Status: Chronic Assessment and plan: See plan of care listed below. Current Visit: Yes Qualifiers: Diabetes mellitus type: type 2 Cardiology - PN: Subj Interval history: Agency Sales Development Associate: Dr. Guaman SUMMARY: Mr. Arvizu is a 72 year old male who was admitted as an outpatient on 07/22/17 for left heart catheterization due to symptoms of exertional angina and abnormal nuclear stress test suggesting cardiac ischemia. He has a history of hypertension, hyperlipidemia, and diabetes. Heart catheterization on 07/22/17 revealed significant left main and severe right coronary artery disease with preserved left ventricular systolic function and normal left subclavian/left internal mammary artery. CV surgery was consulted to see him. Recent echocardiogram done on 07/16/17 revealed EF 55%, normal diastolic function, mild LVH, trace MR, trace DE. On 07/25/17, he underwent coronary artery bypass grafting x3 with a left internal mammary graft to the anterior descending coronary artery and saphenous vein graft to the obtuse marginal and to the right coronary arteries. JULY 28, 2017 UPDATE: Mr. Arvizu is post op day #3. He is on the telemetry unit doing well today. He complains of being a little sore but is overall feeling well. His troponins have trended down appropriately. His sternal incision and lower extremity incisions look good. He has been ambulating around his room without difficulty. He tells me that physical therapy has been working with him and they plan to walk out in the halls tomorrow. H&H is stable at 10.3 and 29.7. Potassium is 3.9. Creatinine 1.0. Magnesium 2.2. ASSESSMENT/PLAN: 1. S/P CABG X2 - On 07/25/17, he underwent coronary artery bypass grafting x3 with a left internal mammary graft to the anterior descending coronary artery and saphenous vein graft to the obtuse marginal and to the right coronary arteries. Will continue to monitor. 2. CORONARY ARTERY DISEASE - Heart catheterization on 07/22/17 revealed significant left main and severe right coronary artery disease with preserved left ventricular systolic function and normal left subclavian/left internal mammary artery. Continue aspirin, statin, ARB. Will start low dose beta karley and monitor. 3. HYPERTENSION - Currently well controlled. Will continue to monitor and adjust accordingly. 4. HYPERLIPIDEMIA - Continue lipid lowering agent. Lipid panel revealed triglycerides 60, cholesterol 151, LDL 82, HDL 55. 5. DIABETES MELLITUS - He has been started on accuchecks ACHS with sliding scale coverage. Exam (Progress Note) - Constitutional Vitals: Period Temp Pulse Resp BP Sys/Baltazar Pulse Ox Last 24 Hr 97.8 F-100.8 F 84-92 16-20 124-155/66-80 90-96 Exam: General: Present: Appears Well, No Apparent Distress. Pleasant and cooperative. HEENT: Present: PERRL, Normocephaly, atraumatic. Mucus Membranes Moist. No jaundice noted. Conjunctiva moist and clear. Neck: Present: Supple Neck, Midline Trachea, No Masses, No Bruit, No tenderness Cardiac: Present: Regular Rate and Rhythm, No Murmur Lungs: Present: clear to auscultation bilaterally, no wheezes, rhonchi, rales. Neuro: Present: Awake, alert, and oriented x3. Moves all extremities well without hemiparesis or paralysis. Grossly Intact. Absent: Resting Tremor, Essential Tremor Abdomen: Present: Soft, Active Bowel Sounds, No Masses, Non-Tender, nondistended. No abdominal bruit or thrill noted. Skin: Present: Clear. Midline sternal incision well approximated, clean, and dry. Bilateral lower extremity medial incisions well approximated with rae intact, clean and dry. Absent: Rash, No skin breakdown. Back: Normal inspection, no vertebral tenderness. Musculoskeletal: Present: No Fluid Collection, No Pain, Normal Range of Motion Extremities: Present: Normal Gait, No Clubbing, No Cyanosis, Upper Extr. Pulses 2+, Lower Extr. Pulses 2+, Mild lower extremity edema. Capillary refill less than 3 seconds. Result/EKG - Labs CBC & BMP: 07/28/17 04:00 07/28/17 Unknown Lab Results: I have reviewed the past 24 hour labs Labs: Laboratory Results - last 24 hr 07/24/17 07/27/17 07/27/17 03:47 16:24 20:55 WBC RBC Hgb Hct MCV MCH MCHC RDW Plt Count MPV Neut % (Auto) Lymph % (Auto) [place] % (Auto) Eos % (Auto) Baso % (Auto) Neut # (Auto) Lymph # (Auto) [place] # (Auto) Eos # (Auto) Baso # (Auto) Total Counted Immature Gran % Nucleated RBC % Immature Gran # Segmented Neutrophils Lymphocytes Monocytes Nucleated RBCs # Platelet Estimate Giant Platelets Immature Plt Fraction Hypochromasia Ovalocytes Morphology Comment Sodium Potassium Chloride Carbon Dioxide Anion Gap BUN Creatinine GFR Calculation BUN/Creatinine Ratio Glucose POC Glucose 167 H 186 H Calculated Osmolality Calcium Magnesium Total Bilirubin Direct Bilirubin Indirect Bilirubin AST ALT Alkaline Phosphatase Total Creatine Kinase CK-MB (CK-2) CK and CKMB Interp Troponin I Total Protein Albumin Globulin Albumin/Globulin Ratio Vancomycin Trough Crossmatch See Detail 07/28/17 07/28/17 07/28/17 00:48 04:00 04:12 WBC 18.7 H D RBC 3.34 L Hgb 10.3 L Hct 29.7 L MCV 88.9 MCH 31 MCHC 34.7 RDW 14.4 Plt Count 95 L D MPV 13.2 H Neut % (Auto) 78.5 H Lymph % (Auto) 10.9 L [place] % (Auto) 9.1 Eos % (Auto) 0.4 Baso % (Auto) 0.2 Neut # (Auto) 14.7 H Lymph # (Auto) 2.0 [place] # (Auto) 1.7 H Eos # (Auto) 0.1 Baso # (Auto) 0.0 Total Counted 100 Immature Gran % 0.9 Nucleated RBC % 0.2 Immature Gran # 0.16 Segmented Neutrophils 82 Lymphocytes 10 L Monocytes 8 Nucleated RBCs # 0.03 Platelet Estimate Decreased Giant Platelets Few Immature Plt Fraction 11.3 H Hypochromasia 1+ Ovalocytes Slight Morphology Comment Sodium Potassium Chloride Carbon Dioxide Anion Gap BUN Creatinine GFR Calculation BUN/Creatinine Ratio Glucose POC Glucose 145 H 218 H Calculated Osmolality Calcium Magnesium Total Bilirubin Direct Bilirubin Indirect Bilirubin AST ALT Alkaline Phosphatase Total Creatine Kinase CK-MB (CK-2) CK and CKMB Interp Troponin I Total Protein Albumin Globulin Albumin/Globulin Ratio Vancomycin Trough Crossmatch 07/28/17 07/28/17 07/28/17 08:14 12:19 Unknown WBC RBC Hgb Hct MCV MCH MCHC RDW Plt Count MPV Neut % (Auto) Lymph % (Auto) [place] % (Auto) Eos % (Auto) Baso % (Auto) Neut # (Auto) Lymph # (Auto) [place] # (Auto) Eos # (Auto) Baso # (Auto) Total Counted Immature Gran % Nucleated RBC % Immature Gran # Segmented Neutrophils Lymphocytes Monocytes Nucleated RBCs # Platelet Estimate Giant Platelets Immature Plt Fraction Hypochromasia Ovalocytes Morphology Comment Sodium 137 Potassium 3.9 Chloride 102 Carbon Dioxide 25 Anion Gap 13.9 BUN 18 Creatinine 1.00 GFR Calculation 102 BUN/Creatinine Ratio 18.00 Glucose 179 H POC Glucose 187 H 103 Calculated Osmolality 278.8 Calcium 8.2 L Magnesium 2.2 Total Bilirubin 1.70 H Direct Bilirubin 0.370 H Indirect Bilirubin 1.3 H AST 158 H ALT 71 H Alkaline Phosphatase 59 Total Creatine Kinase 1754 H D CK-MB (CK-2) 10.1 H D CK and CKMB Interp 0.6 Troponin I 39.100 H D Total Protein 5.7 L Albumin 3.5 Globulin 2.2 L Albumin/Globulin Ratio 1.5 Vancomycin Trough Crossmatch 07/28/17 Unknown WBC RBC Hgb Hct MCV MCH MCHC RDW Plt Count MPV Neut % (Auto) Lymph % (Auto) [place] % (Auto) Eos % (Auto) Baso % (Auto) Neut # (Auto) Lymph # (Auto) [place] # (Auto) Eos # (Auto) Baso # (Auto) Total Counted Immature Gran % Nucleated RBC % Immature Gran # Segmented Neutrophils Lymphocytes Monocytes Nucleated RBCs # Platelet Estimate Giant Platelets Immature Plt Fraction Hypochromasia Ovalocytes Morphology Comment Sodium Potassium Chloride Carbon Dioxide Anion Gap BUN Creatinine GFR Calculation BUN/Creatinine Ratio Glucose POC Glucose Calculated Osmolality Calcium Magnesium Total Bilirubin Direct Bilirubin Indirect Bilirubin AST ALT Alkaline Phosphatase Total Creatine Kinase CK-MB (CK-2) CK and CKMB Interp Troponin I Total Protein Albumin Globulin Albumin/Globulin Ratio Vancomycin Trough 23.1 H Crossmatch - EKG EKG results: interpreted by me, sinus rhythm Quality Measures - VTE Contraindication to Pharmacological VTE Prophylaxis: High Risk of Bleeding Specialty Discharge - Follow Up or Referrals
[2017-07-28] MEDS: CARVEDILOL 3.125 MG TABLET PO SCH (21:40)
[2017-07-29] MEDS: KETOROLAC 30 MG/1 ML VIAL IM SCH ×5 (00:18→17:34)
[2017-07-29 05:15] LABS: Basophils % 0.2 % (0.0-0.8); Eosinophils # 0.2 10*3/uL (0.0-0.87); Eosinophils % 1.7 % (0.00-10.9); Hematocrit 25.7 VOL% (42.0-52.0); Immature Granulocytes % 0.5 %; Immature Granulocytes Absolute 0.06 #; Lymphocytes # 1.9 10*3/uL (1.4-4.0); Lymphocytes % 16.9 % (21.2-54.2); Mean Corpuscular Hemoglobin 31 PG (27-34); Mean Corpuscular Volume 88.6 FL (87-102); Mean Platelet Volume 12.6 FL (9.6-12.0); Monocytes # 1.2 10*3/uL (0.11-0.8); Monocytes % 10.6 % (1.7-12.7); NRBC # 0.08 10*3/uL; Neutrophils # 7.8 10*3/uL (1.4-7.4); Neutrophils % 70.1 % (38.7-73.9); Platelet Count 103 T/CUMM (130-400); Red Cell Distribution Width 13.8 % (9.3-17.3); White Blood Count 11.1 T/CUMM (4-12)
[2017-07-29 05:48] LABS: Band Neutrophils 1 % (0-10); Hypochromasia 1+; Lymphocytes 19 % (20-55); Microcytosis 1+; Segmented Neutrophils 73 % (50-85); Total Cells Counted 100
[2017-07-29 05:49] LABS: Platelet Estimate Decreased
[2017-07-29 05:50] LABS: Alanine Aminotransferase 55 U/L (16-61); Albumin 2.8 G/DL (3.4-5.0); Alkaline Phosphatase 53 U/L (45-117); Aspartate Amino Transferase 94 U/L (0-37); Bilirubin,Indirect 0.5 MG/DL (0.0-1.0); Blood Urea Nitrogen 16 MG/DL (7-18); Calcium 7.6 MG/DL (8.5-10.1); Glucose 124 MG/DL (74-106); Osmolality,Calculated 282.3 MOS/KG (273-304); Potassium 3.3 MMOL/L (3.5-5.1); Sodium 141 MMOL/L (136-145); Total Protein 5.1 G/DL (6.4-8.3)
[2017-07-29] MEDS: VANCOMYCIN INJ 1,500 MG in SODIUM CHLORIDE 0.9% 500 ML IV SCH (06:29)
[2017-07-29] MEDS: LOSARTAN 25 MG TABLET PO SCH (08:49)
[2017-07-29] MEDS: ATORVASTATIN 40 MG TABLET PO SCH (08:49)
--- NOTE | 2017-07-29 08:49 | XRay Report ---
Portable chest Date: 07/29/2017 Clinical history: Shortness of breath Comparison: 07/28/2017 Technique: Portable AP sitting chest Findings: The heart is normal in size with prior median sternotomy. Stable right IJ CVP line. Persistent minimal diffuse perihilar parenchymal findings extending to the lung bases with small right pleural effusion. Calcified granulomata. Stable mediastinum and osseous structures. Impression: Status post median sternotomy with residual minimal atelectasis/edema and small right pleural effusion. No pneumothorax. PROCEDURE INTERPRETED AT [facility] DEPARTMENT OF RADIOLOGY Final Report Signed by: Dr. Rossana Garcia
[2017-07-29] MEDS: amLODIPine 10 MG TABLET PO SCH (08:50)
[2017-07-29] MEDS: FERROUS SULFATE 325 MG TABLET PO SCH (08:50)
[2017-07-29] MEDS: metFORMIN 500 MG TABLET PO SCH ×2 (08:50→21:08)
[2017-07-29] MEDS: ASPIRIN 325 MG TABLET PO SCH (08:50)
[2017-07-29] MEDS: DOCUSATE SODIUM 100 MG CAPSULE PO SCH (08:50)
[2017-07-29] MEDS: PANTOPRAZOLE 40 MG TABLET PO SCH (08:50)
[2017-07-29] MEDS: CARVEDILOL 3.125 MG TABLET PO SCH (08:52)
[2017-07-29] MEDS: CHLORHEXIDINE 0.12% ORAL RINSE 60 ML BOTTLE SWISH/SPIT SCH ×2 (08:52→21:09)
--- NOTE | 2017-07-29 08:55 | Cardiothoracic Progress Note ---
Cardiothoracic Subjective Interval history: Patient appears to be recovering well. Vital signs are stable and he is breathing comfortably. He is gradually increasing his activities as tolerated. Overall I think his progress is satisfactory considering a somewhat stormy nature of his operative and immediate postoperative course. Exam (Progress Note) - Constitutional Vitals: Period Temp Pulse Resp BP Sys/Baltazar Pulse Ox Last 24 Hr 97.0 F-99.3 F 76-93 16-20 105-145/60-78 90-96 Result/EKG - Labs CBC & BMP: 07/29/17 04:00 07/29/17 04:00 Labs: Laboratory Results - last 24 hr 07/28/17 07/28/17 07/28/17 12:19 15:51 19:52 WBC RBC Hgb Hct MCV MCH MCHC RDW Plt Count MPV Neut % (Auto) Lymph % (Auto) [place] % (Auto) Eos % (Auto) Baso % (Auto) Neut # (Auto) Lymph # (Auto) [place] # (Auto) Eos # (Auto) Baso # (Auto) Total Counted Immature Gran % Nucleated RBC % Immature Gran # Segmented Neutrophils Band Neutrophils Lymphocytes Monocytes Nucleated RBCs # Platelet Estimate Immature Plt Fraction Hypochromasia Microcytosis Morphology Comment Sodium Potassium Chloride Carbon Dioxide Anion Gap BUN Creatinine GFR Calculation BUN/Creatinine Ratio Glucose POC Glucose 103 148 H 199 H Calculated Osmolality Calcium Magnesium Total Bilirubin Direct Bilirubin Indirect Bilirubin AST ALT Alkaline Phosphatase Total Creatine Kinase CK-MB (CK-2) Troponin I Total Protein Albumin Globulin Albumin/Globulin Ratio 07/29/17 07/29/17 07/29/17 04:00 04:00 07:04 WBC 11.1 D RBC 2.90 L Hgb 9.0 L Hct 25.7 L MCV 88.6 MCH 31 MCHC 35.0 RDW 13.8 Plt Count 103 L MPV 12.6 H Neut % (Auto) 70.1 Lymph % (Auto) 16.9 L [place] % (Auto) 10.6 Eos % (Auto) 1.7 Baso % (Auto) 0.2 Neut # (Auto) 7.8 H Lymph # (Auto) 1.9 [place] # (Auto) 1.2 H Eos # (Auto) 0.2 Baso # (Auto) 0.0 Total Counted 100 Immature Gran % 0.5 Nucleated RBC % 0.7 Immature Gran # 0.06 Segmented Neutrophils 73 Band Neutrophils 1 Lymphocytes 19 L Monocytes 7 Nucleated RBCs # 0.08 Platelet Estimate Decreased Immature Plt Fraction 0.0 Hypochromasia 1+ Microcytosis 1+ Morphology Comment Sodium 141 Potassium 3.3 L Chloride 106 Carbon Dioxide 27 Anion Gap 11.3 BUN 16 Creatinine 0.70 GFR Calculation 129 BUN/Creatinine Ratio 22.00 H Glucose 124 H POC Glucose 135 H Calculated Osmolality 282.3 Calcium 7.6 L Magnesium 2.0 Total Bilirubin 0.80 Direct Bilirubin 0.260 H Indirect Bilirubin 0.5 AST 94 H ALT 55 Alkaline Phosphatase 53 Total Creatine Kinase 984 H D CK-MB (CK-2) 3.8 H D Troponin I 22.600 H D Total Protein 5.1 L Albumin 2.8 L Globulin 2.3 Albumin/Globulin Ratio 1.2 Quality Measures - VTE Contraindication to Pharmacological VTE Prophylaxis: High Risk of Bleeding Specialty Discharge - Follow Up or Referrals
[2017-07-29] MEDS: POTASSIUM CHLORIDE 20 MEQ TABLET PO PRN ×3 (09:33→13:28)
--- NOTE | 2017-07-29 11:18 | Cardiology Progress Note ---
Assessment and Plan - Time spent with patient Time spent with patient: Less than 30 minutes (1) S/P CABG x 3 Status: Acute Assessment and plan: See plan of care listed below. Current Visit: Yes (2) Coronary artery disease Status: Chronic Assessment and plan: See plan of care listed below. Current Visit: Yes Qualifiers: Coronary Disease-Associated Artery/Lesion type: bypass graft [place] vs. transplanted heart: [place] heart Associated angina: without angina Qualified Code(s): I25.810 - Atherosclerosis of coronary artery bypass graft(s) without angina pectoris (3) Hypertension Status: Chronic Assessment and plan: See plan of care listed below. Current Visit: Yes Qualifiers: Hypertension type: essential hypertension Qualified Code(s): I10 - Essential (primary) hypertension (4) HLD (hyperlipidemia) Status: Chronic Assessment and plan: See plan of care listed below. Current Visit: Yes (5) Diabetes mellitus Status: Chronic Assessment and plan: See plan of care listed below. Current Visit: Yes Qualifiers: Diabetes mellitus type: type 2 Cardiology - PN: Subj Interval history: Manager Desktop: Dr. Guaman SUMMARY: Mr. Arvizu is a 72 year old male who was admitted as an outpatient on 07/22/17 for left heart catheterization due to symptoms of exertional angina and abnormal nuclear stress test suggesting cardiac ischemia. He has a history of hypertension, hyperlipidemia, and diabetes. Heart catheterization on 07/22/17 revealed significant left main and severe right coronary artery disease with preserved left ventricular systolic function and normal left subclavian/left internal mammary artery. CV surgery was consulted to see him. Recent echocardiogram done on 07/16/17 revealed EF 55%, normal diastolic function, mild LVH, trace MR, trace NC. On 07/25/17, he underwent coronary artery bypass grafting x3 with a left internal mammary graft to the anterior descending coronary artery and saphenous vein graft to the obtuse marginal and to the right coronary arteries. JULY 29, 2017 UPDATE: Mr. Arvizu is post op day #4. He is on the telemetry unit doing well today. He complains of being a little sore but is overall feeling well. His troponins have trended down appropriately. His sternal incision and lower extremity incisions look good. He has been ambulating around his room and in the sharp today without difficulty and reports he felt well afterwards. H&H is stable at 9.0 & 25.7. Potassium is 3.3, he is on the PO replacement protocol. Creatinine 0.7. Magnesium 2.0. ASSESSMENT/PLAN: 1. S/P CABG X2 - On 07/25/17, he underwent coronary artery bypass grafting x3 with a left internal mammary graft to the anterior descending coronary artery and saphenous vein graft to the obtuse marginal and to the right coronary arteries. Will continue to monitor. 2. CORONARY ARTERY DISEASE - Heart catheterization on 07/22/17 revealed significant left main and severe right coronary artery disease with preserved left ventricular systolic function and normal left subclavian/left internal mammary artery. Continue aspirin, statin, ARB. He is tolerating the addition of low dose Coreg without difficulty. 3. HYPERTENSION - Currently well controlled. Will continue to monitor and adjust accordingly. 4. HYPERLIPIDEMIA - Continue lipid lowering agent. Lipid panel revealed triglycerides 60, cholesterol 151, LDL 82, HDL 55. 5. DIABETES MELLITUS - He has been started on accuchecks ACHS with sliding scale coverage. Exam (Progress Note) - Constitutional Vitals: Period Temp Pulse Resp BP Sys/Baltazar Pulse Ox Last 24 Hr 97.0 F-99.3 F 76-93 16-20 105-145/60-78 90-96 Exam: General: Present: Appears Well, No Apparent Distress. Pleasant and cooperative. HEENT: Present: PERRL, Normocephaly, atraumatic. Mucus Membranes Moist. No jaundice noted. Conjunctiva moist and clear. Neck: Present: Supple Neck, Midline Trachea, No Masses, No Bruit, No tenderness Cardiac: Present: Regular Rate and Rhythm, No Murmur Lungs: Present: clear to auscultation bilaterally, no wheezes, rhonchi, rales. Neuro: Present: Awake, alert, and oriented x3. Moves all extremities well without hemiparesis or paralysis. Grossly Intact. Absent: Resting Tremor, Essential Tremor Abdomen: Present: Soft, Active Bowel Sounds, No Masses, Non-Tender, nondistended. No abdominal bruit or thrill noted. Skin: Present: Clear. Midline sternal incision well approximated, clean, and dry. Bilateral lower extremity medial incisions well approximated with rae intact, clean and dry. Absent: Rash, No skin breakdown. Back: Normal inspection, no vertebral tenderness. Musculoskeletal: Present: No Fluid Collection, No Pain, Normal Range of Motion Extremities: Present: Normal Gait, No Clubbing, No Cyanosis, Upper Extr. Pulses 2+, Lower Extr. Pulses 2+, Mild lower extremity edema. Capillary refill less than 3 seconds. Result/EKG - Labs CBC & BMP: 07/29/17 04:00 07/29/17 04:00 Lab Results: I have reviewed the past 24 hour labs Labs: Laboratory Results - last 24 hr 07/28/17 07/28/17 07/28/17 12:19 15:51 19:52 WBC RBC Hgb Hct MCV MCH MCHC RDW Plt Count MPV Neut % (Auto) Lymph % (Auto) [place] % (Auto) Eos % (Auto) Baso % (Auto) Neut # (Auto) Lymph # (Auto) [place] # (Auto) Eos # (Auto) Baso # (Auto) Total Counted Immature Gran % Nucleated RBC % Immature Gran # Segmented Neutrophils Band Neutrophils Lymphocytes Monocytes Nucleated RBCs # Platelet Estimate Immature Plt Fraction Hypochromasia Microcytosis Morphology Comment Sodium Potassium Chloride Carbon Dioxide Anion Gap BUN Creatinine GFR Calculation BUN/Creatinine Ratio Glucose POC Glucose 103 148 H 199 H Calculated Osmolality Calcium Magnesium Total Bilirubin Direct Bilirubin Indirect Bilirubin AST ALT Alkaline Phosphatase Total Creatine Kinase CK-MB (CK-2) Troponin I Total Protein Albumin Globulin Albumin/Globulin Ratio 07/29/17 07/29/17 07/29/17 04:00 04:00 07:04 WBC 11.1 D RBC 2.90 L Hgb 9.0 L Hct 25.7 L MCV 88.6 MCH 31 MCHC 35.0 RDW 13.8 Plt Count 103 L MPV 12.6 H Neut % (Auto) 70.1 Lymph % (Auto) 16.9 L [place] % (Auto) 10.6 Eos % (Auto) 1.7 Baso % (Auto) 0.2 Neut # (Auto) 7.8 H Lymph # (Auto) 1.9 [place] # (Auto) 1.2 H Eos # (Auto) 0.2 Baso # (Auto) 0.0 Total Counted 100 Immature Gran % 0.5 Nucleated RBC % 0.7 Immature Gran # 0.06 Segmented Neutrophils 73 Band Neutrophils 1 Lymphocytes 19 L Monocytes 7 Nucleated RBCs # 0.08 Platelet Estimate Decreased Immature Plt Fraction 0.0 Hypochromasia 1+ Microcytosis 1+ Morphology Comment Sodium 141 Potassium 3.3 L Chloride 106 Carbon Dioxide 27 Anion Gap 11.3 BUN 16 Creatinine 0.70 GFR Calculation 129 BUN/Creatinine Ratio 22.00 H Glucose 124 H POC Glucose 135 H Calculated Osmolality 282.3 Calcium 7.6 L Magnesium 2.0 Total Bilirubin 0.80 Direct Bilirubin 0.260 H Indirect Bilirubin 0.5 AST 94 H ALT 55 Alkaline Phosphatase 53 Total Creatine Kinase 984 H D CK-MB (CK-2) 3.8 H D Troponin I 22.600 H D Total Protein 5.1 L Albumin 2.8 L Globulin 2.3 Albumin/Globulin Ratio 1.2 - EKG EKG results: interpreted by me, sinus rhythm Quality Measures - VTE Contraindication to Pharmacological VTE Prophylaxis: High Risk of Bleeding Specialty Discharge - Follow Up or Referrals
--- NOTE | 2017-07-29 12:27 | Sleep Medicine Progress Note ---
Assessment and Plan (1) Obstructive sleep apnea Status: Acute Assessment and plan: Continue auto titration CPAP and follow-up compliance and results with mask change. Follow-up will be in the sleep clinic after discharge. Current Visit: Yes Sleep Medicine Subjective Interval history: Patient seemed to do a little bit better with CPAP last night. He slept about 3 -1/2 hours. His average device pressure was about 13 cm. His AHI was 2. He still has some significant leak and we are going to change his mask again. We will see how he does with this and follow-up results tomorrow. Exam (Progress Note) - Constitutional Vitals: Period Temp Pulse Resp BP Sys/Baltazar Pulse Ox Last 24 Hr 97.0 F-99.1 F 76-93 16-20 105-145/60-79 90-96 Exam: He is alert and responsive in no acute distress. HEENT unremarkable. Neck supple without adenopathy. Chest with good air movement and no significant wheeze or rhonchi. Cardiac exam reveals a regular rhythm. Abdomen soft nontender extremities without calf tenderness. Neurologically, he is grossly intact. Results - Labs CBC & BMP: 07/29/17 04:00 07/29/17 04:00 Lab Results: I have reviewed the past 24 hour labs Specialty Discharge - Follow Up or Referrals
[2017-07-29] MEDS ORDERED: VECURONIUM 10 MG VIAL IV ONE (12:53)
[2017-07-29] MEDS: ASCORBIC ACID 500 MG TABLET PO SCH ×2 (14:47→21:08)
[2017-07-29] MEDS: CARVEDILOL 6.25 MG TABLET PO SCH (21:08)
[2017-07-30] MEDS: KETOROLAC 30 MG/1 ML VIAL IM SCH ×2 (00:08→06:13)
[2017-07-30] MEDS: VANCOMYCIN INJ 1,500 MG in SODIUM CHLORIDE 0.9% 500 ML IV SCH (00:09)
--- NOTE | 2017-07-30 06:29 | Cardiothoracic Progress Note ---
Cardiothoracic Subjective Interval history: Patient appears to be doing very well. He had a comfortable night and his vital signs are stable. He has been ambulating with minimal assistance. We will continue to increase his activity according to routine postoperative protocol but overall his progress appears satisfactory. Exam (Progress Note) - Constitutional Vitals: Period Temp Pulse Resp BP Sys/Baltazar Pulse Ox Last 24 Hr 97.0 F-98.9 F 69-88 16-18 112-150/70-79 88-94 Result/EKG - Labs CBC & BMP: 07/29/17 04:00 07/29/17 04:00 Labs: Laboratory Results - last 24 hr 07/29/17 07/29/17 07/29/17 07:04 11:31 15:22 POC Glucose 135 H 145 H 142 H 07/29/17 19:44 POC Glucose 177 H Quality Measures - VTE Contraindication to Pharmacological VTE Prophylaxis: High Risk of Bleeding Specialty Discharge - Follow Up or Referrals
[2017-07-30] MEDS: ATORVASTATIN 40 MG TABLET PO SCH (08:43)
[2017-07-30] MEDS: CARVEDILOL 6.25 MG TABLET PO SCH ×2 (08:44→21:01)
[2017-07-30] MEDS: metFORMIN 500 MG TABLET PO SCH ×2 (08:44→21:00)
[2017-07-30] MEDS: ASPIRIN 325 MG TABLET PO SCH (08:44)
[2017-07-30] MEDS: LOSARTAN 25 MG TABLET PO SCH (08:44)
[2017-07-30] MEDS: ASCORBIC ACID 500 MG TABLET PO SCH ×2 (08:44→21:00)
[2017-07-30] MEDS: amLODIPine 5 MG TABLET PO SCH (08:44)
[2017-07-30] MEDS: PANTOPRAZOLE 40 MG TABLET PO SCH (08:44)
[2017-07-30] MEDS: FERROUS SULFATE 325 MG TABLET PO SCH (08:44)
[2017-07-30] MEDS: DOCUSATE SODIUM 100 MG CAPSULE PO SCH (08:44)
[2017-07-30] MEDS: CHLORHEXIDINE 0.12% ORAL RINSE 60 ML BOTTLE SWISH/SPIT SCH ×2 (08:45→21:08)
--- NOTE | 2017-07-30 10:51 | Cardiology Progress Note ---
Assessment and Plan - Time spent with patient Time spent with patient: Less than 30 minutes (1) S/P CABG x 3 Status: Acute Assessment and plan: See plan of care listed below. Current Visit: Yes (2) Coronary artery disease Status: Chronic Assessment and plan: See plan of care listed below. Current Visit: Yes Qualifiers: Coronary Disease-Associated Artery/Lesion type: bypass graft [place] vs. transplanted heart: [place] heart Associated angina: without angina Qualified Code(s): I25.810 - Atherosclerosis of coronary artery bypass graft(s) without angina pectoris (3) Hypertension Status: Chronic Assessment and plan: See plan of care listed below. Current Visit: Yes Qualifiers: Hypertension type: essential hypertension Qualified Code(s): I10 - Essential (primary) hypertension (4) HLD (hyperlipidemia) Status: Chronic Assessment and plan: See plan of care listed below. Current Visit: Yes (5) Diabetes mellitus Status: Chronic Assessment and plan: See plan of care listed below. Current Visit: Yes Qualifiers: Diabetes mellitus type: type 2 Cardiology - PN: Subj Interval history: Enterprise Software Engineer: Dr. Guaman SUMMARY: Mr. Arvizu is a 72 year old male who was admitted as an outpatient on 07/22/17 for left heart catheterization due to symptoms of exertional angina and abnormal nuclear stress test suggesting cardiac ischemia. He has a history of hypertension, hyperlipidemia, and diabetes. Heart catheterization on 07/22/17 revealed significant left main and severe right coronary artery disease with preserved left ventricular systolic function and normal left subclavian/left internal mammary artery. CV surgery was consulted to see him. Recent echocardiogram done on 07/16/17 revealed EF 55%, normal diastolic function, mild LVH, trace MR, trace [place]. On 07/25/17, he underwent coronary artery bypass grafting x3 with a left internal mammary graft to the anterior descending coronary artery and saphenous vein graft to the obtuse marginal and to the right coronary arteries. He is doing well post operatively. His troponins have trended down appropriately. JULY 30, 2017 UPDATE: Mr. Arvizu is post op day #5. He is doing well. He complains of being a little sore but is overall feeling well and is in good spirits. His sternal incision and lower extremity incisions look good. He has been ambulating around his room and in the sharp today without difficulty and reports he felt well afterwards. His labs and vital signs have been stable. ASSESSMENT/PLAN: 1. S/P CABG X2 - On 07/25/17, he underwent coronary artery bypass grafting x3 with a left internal mammary graft to the anterior descending coronary artery and saphenous vein graft to the obtuse marginal and to the right coronary arteries. Will continue to monitor. 2. CORONARY ARTERY DISEASE - Heart catheterization on 07/22/17 revealed significant left main and severe right coronary artery disease with preserved left ventricular systolic function and normal left subclavian/left internal mammary artery. Continue aspirin, statin, beta karley, and ARB. 3. HYPERTENSION - Currently well controlled. Will continue to monitor and adjust accordingly. 4. HYPERLIPIDEMIA - Continue lipid lowering agent. Lipid panel revealed triglycerides 60, cholesterol 151, LDL 82, HDL 55. 5. DIABETES MELLITUS - He has been started on accuchecks ACHS with sliding scale coverage. Exam (Progress Note) - Constitutional Vitals: Period Temp Pulse Resp BP Sys/Baltazar Pulse Ox Last 24 Hr 97.0 F-98.9 F 69-88 16-18 112-150/70-79 88-97 Exam: General: Present: Appears Well, No Apparent Distress. Pleasant and cooperative. HEENT: Present: PERRL, Normocephaly, atraumatic. Mucus Membranes Moist. No jaundice noted. Conjunctiva moist and clear. Neck: Present: Supple Neck, Midline Trachea, No Masses, No Bruit, No tenderness Cardiac: Present: Regular Rate and Rhythm, No Murmur Lungs: Present: clear to auscultation bilaterally, no wheezes, rhonchi, rales. Neuro: Present: Awake, alert, and oriented x3. Moves all extremities well without hemiparesis or paralysis. Grossly Intact. Absent: Resting Tremor, Essential Tremor Abdomen: Present: Soft, Active Bowel Sounds, No Masses, Non-Tender, nondistended. No abdominal bruit or thrill noted. Skin: Present: Clear. Midline sternal incision well approximated, clean, and dry. Bilateral lower extremity medial incisions well approximated with rae intact, clean and dry. Absent: Rash, No skin breakdown. Back: Normal inspection, no vertebral tenderness. Musculoskeletal: Present: No Fluid Collection, No Pain, Normal Range of Motion Extremities: Present: Normal Gait, No Clubbing, No Cyanosis, Upper Extr. Pulses 2+, Lower Extr. Pulses 2+, Mild lower extremity edema. Capillary refill less than 3 seconds. Result/EKG - Labs CBC & BMP: 07/29/17 04:00 07/29/17 04:00 Lab Results: I have reviewed the past 24 hour labs Labs: Laboratory Results - last 24 hr 07/29/17 07/29/17 07/29/17 11:31 15:22 19:44 POC Glucose 145 H 142 H 177 H 07/30/17 07:51 POC Glucose 131 H - EKG EKG results: interpreted by me, sinus rhythm Quality Measures - VTE Contraindication to Pharmacological VTE Prophylaxis: High Risk of Bleeding Specialty Discharge - Follow Up or Referrals Follow up with: Naeem Parekh MD [Physician] - 08/26/17 10:00 am
--- NOTE | 2017-07-30 17:03 | Sleep Medicine Progress Note ---
Assessment and Plan (1) Obstructive sleep apnea Status: Acute Assessment and plan: Continue present CPAP therapy. Current Visit: Yes Sleep Medicine Subjective Interval history: Patient did very well on CPAP therapy last night. He slept over 8 hours on auto titration CPAP and had an apnea popping index of 3. He is much more comfortable with his current mask. Quite pleased with his progress. Clinically , he seems to be doing better. Exam (Progress Note) - Constitutional Vitals: Period Temp Pulse Resp BP Sys/Baltazar Pulse Ox Last 24 Hr 97.0 F-98.9 F 69-81 16-20 112-128/63-79 88-97 Exam: He is alert and responsive in no acute distress. HEENT unremarkable. Neck supple without adenopathy. Chest with good air movement and no significant wheeze or rhonchi. Cardiac exam reveals a regular rhythm. Abdomen soft nontender extremities without calf tenderness. Neurologically, he is grossly intact. Results - Labs CBC & BMP: 07/29/17 04:00 07/29/17 04:00 Lab Results: I have reviewed the past 24 hour labs Specialty Discharge - Follow Up or Referrals Follow up with: Naeem Parekh MD [Physician] - 08/26/17 10:00 am
[2017-07-30] MEDS ORDERED: VANCOMYCIN INJ 1,500 MG in SODIUM CHLORIDE 0.9% 500 ML IV SCH (18:00)
[2017-07-31 07:02] LABS: Alanine Aminotransferase 101 U/L (16-61); Albumin 2.9 G/DL (3.4-5.0); Alkaline Phosphatase 72 U/L (45-117); Aspartate Amino Transferase 77 U/L (0-37); Bilirubin,Indirect 0.5 MG/DL (0.0-1.0); Blood Urea Nitrogen 19 MG/DL (7-18); Calcium 8.2 MG/DL (8.5-10.1); Glucose 133 MG/DL (74-106); Osmolality,Calculated 278.7 MOS/KG (273-304); Potassium 4.1 MMOL/L (3.5-5.1); Sodium 138 MMOL/L (136-145); Total Protein 5.6 G/DL (6.4-8.3)
[2017-07-31 08:02] LABS: Basophils % 0.3 % (0.0-0.8); Eosinophils # 0.2 10*3/uL (0.0-0.87); Hematocrit 28.6 VOL% (42.0-52.0); Hemoglobin 9.6 GM/DL (14.0-18.0); Immature Granulocytes % 0.8 %; Immature Granulocytes Absolute 0.08 #; Lymphocytes # 2.3 10*3/uL (1.4-4.0); Mean Corpuscular HGB Conc 33.6 GM/DL (32-36); Mean Corpuscular Hemoglobin 31 PG (27-34); Mean Corpuscular Volume 90.8 FL (87-102); Mean Platelet Volume 12.7 FL (9.6-12.0); Monocytes # 1.1 10*3/uL (0.11-0.8); Monocytes % 11.1 % (1.7-12.7); NRBC # 0.09 10*3/uL; Neutrophils # 6.6 10*3/uL (1.4-7.4); Neutrophils % 63.8 % (38.7-73.9); Platelet Count 196 T/CUMM (130-400); Red Blood Count 3.15 MC/CUMM (3.8-5.5); Red Cell Distribution Width 13.9 % (9.3-17.3); White Blood Count 10.3 T/CUMM (4-12)
--- NOTE | 2017-07-31 08:27 | Cardiothoracic Progress Note ---
Cardiothoracic Subjective Interval history: Patient looks and feels much better. He is ambulating with minimal difficulty. Vital signs have been stable and is breathing comfortably. His blood tests all look within normal limits for postoperative day 6. We will increase his activities as tolerated but overall his progress appears satisfactory and hopefully he will be ready for discharge in a day or 2. Exam (Progress Note) - Constitutional Vitals: Period Temp Pulse Resp BP Sys/Baltazar Pulse Ox Last 24 Hr 96.9 F-98.7 F 71-78 16-20 113-137/63-89 87-95 Result/EKG - Labs CBC & BMP: 07/31/17 06:10 07/31/17 06:10 Labs: Laboratory Results - last 24 hr 07/30/17 07/30/17 07/30/17 11:18 15:15 17:22 WBC RBC Hgb Hct MCV MCH MCHC RDW Plt Count MPV Neut % (Auto) Lymph % (Auto) [place] % (Auto) Eos % (Auto) Baso % (Auto) Neut # (Auto) Lymph # (Auto) [place] # (Auto) Eos # (Auto) Baso # (Auto) Immature Gran % Nucleated RBC % Immature Gran # Nucleated RBCs # Immature Plt Fraction Sodium Potassium Chloride Carbon Dioxide Anion Gap BUN Creatinine GFR Calculation BUN/Creatinine Ratio Glucose POC Glucose 176 H 146 H Calculated Osmolality Calcium Magnesium Total Bilirubin Direct Bilirubin Indirect Bilirubin AST ALT Alkaline Phosphatase Total Creatine Kinase CK-MB (CK-2) Troponin I Total Protein Albumin Globulin Albumin/Globulin Ratio Vancomycin Trough 13.5 07/30/17 07/31/17 07/31/17 19:32 06:10 06:10 WBC 10.3 RBC 3.15 L Hgb 9.6 L Hct 28.6 L MCV 90.8 MCH 31 MCHC 33.6 RDW 13.9 Plt Count 196 D MPV 12.7 H Neut % (Auto) 63.8 Lymph % (Auto) 22.0 [place] % (Auto) 11.1 Eos % (Auto) 2.0 Baso % (Auto) 0.3 Neut # (Auto) 6.6 Lymph # (Auto) 2.3 [place] # (Auto) 1.1 H Eos # (Auto) 0.2 Baso # (Auto) 0.0 Immature Gran % 0.8 Nucleated RBC % 0.9 Immature Gran # 0.08 Nucleated RBCs # 0.09 Immature Plt Fraction 0.0 Sodium 138 Potassium 4.1 Chloride 105 Carbon Dioxide 26 Anion Gap 11.1 BUN 19 H Creatinine 0.80 GFR Calculation 122 BUN/Creatinine Ratio 23.00 H Glucose 133 H POC Glucose 192 H Calculated Osmolality 278.7 Calcium 8.2 L Magnesium 2.0 Total Bilirubin 0.60 Direct Bilirubin 0.150 Indirect Bilirubin 0.5 AST 77 H ALT 101 H Alkaline Phosphatase 72 Total Creatine Kinase 415 H D CK-MB (CK-2) 2.3 Troponin I 8.250 H D Total Protein 5.6 L Albumin 2.9 L Globulin 2.7 Albumin/Globulin Ratio 1.0 L Vancomycin Trough 07/31/17 07:48 WBC RBC Hgb Hct MCV MCH MCHC RDW Plt Count MPV Neut % (Auto) Lymph % (Auto) [place] % (Auto) Eos % (Auto) Baso % (Auto) Neut # (Auto) Lymph # (Auto) [place] # (Auto) Eos # (Auto) Baso # (Auto) Immature Gran % Nucleated RBC % Immature Gran # Nucleated RBCs # Immature Plt Fraction Sodium Potassium Chloride Carbon Dioxide Anion Gap BUN Creatinine GFR Calculation BUN/Creatinine Ratio Glucose POC Glucose 189 H Calculated Osmolality Calcium Magnesium Total Bilirubin Direct Bilirubin Indirect Bilirubin AST ALT Alkaline Phosphatase Total Creatine Kinase CK-MB (CK-2) Troponin I Total Protein Albumin Globulin Albumin/Globulin Ratio Vancomycin Trough Quality Measures - VTE Contraindication to Pharmacological VTE Prophylaxis: High Risk of Bleeding Specialty Discharge - Follow Up or Referrals Follow up with: Naeem Parekh MD [Physician] - 08/26/17 10:00 am
[2017-07-31] MEDS: ASPIRIN 325 MG TABLET PO SCH (08:42)
[2017-07-31] MEDS: ATORVASTATIN 40 MG TABLET PO SCH (08:42)
[2017-07-31] MEDS: PANTOPRAZOLE 40 MG TABLET PO SCH (08:42)
[2017-07-31] MEDS: CARVEDILOL 6.25 MG TABLET PO SCH ×2 (08:42→21:16)
[2017-07-31] MEDS: amLODIPine 5 MG TABLET PO SCH (08:42)
[2017-07-31] MEDS: ASCORBIC ACID 500 MG TABLET PO SCH ×2 (08:42→21:16)
[2017-07-31] MEDS: FERROUS SULFATE 325 MG TABLET PO SCH (08:42)
[2017-07-31] MEDS: metFORMIN 500 MG TABLET PO SCH ×2 (08:42→21:16)
[2017-07-31] MEDS: DOCUSATE SODIUM 100 MG CAPSULE PO SCH (08:42)
[2017-07-31] MEDS: CHLORHEXIDINE 0.12% ORAL RINSE 60 ML BOTTLE SWISH/SPIT SCH ×2 (08:43→21:16)
[2017-07-31] MEDS: LOSARTAN 25 MG TABLET PO SCH (08:43)
--- NOTE | 2017-07-31 08:51 | XRay Report ---
XR chest 2V Date: 07/31/2017 4:00 AM History: Shortness of breath Comparison: 07/29/2017 Technique: PA and lateral chest Findings: The heart is slightly smaller in size with recent median sternotomy. Stable right IJ CVP line. Reduced edema at the lung bases with residual minimal atelectasis and small pleural effusions. No pneumothorax. Stable mediastinum and osseous structures. Impression: Recent median sternotomy with reduced edema at the lung bases. Persistent atelectasis at the lung bases with small pleural effusions. PROCEDURE INTERPRETED AT [facility] DEPARTMENT OF RADIOLOGY Final Report Signed by: Dr. Rossana Garcia
--- NOTE | 2017-07-31 10:12 | Cardiology Progress Note ---
Assessment and Plan - Time spent with patient Time spent with patient: Less than 30 minutes (1) S/P CABG x 3 Status: Acute Assessment and plan: See plan of care listed below. Current Visit: Yes (2) Coronary artery disease Status: Chronic Assessment and plan: See plan of care listed below. Current Visit: Yes Qualifiers: Coronary Disease-Associated Artery/Lesion type: bypass graft [place] vs. transplanted heart: [place] heart Associated angina: without angina Qualified Code(s): I25.810 - Atherosclerosis of coronary artery bypass graft(s) without angina pectoris (3) Hypertension Status: Chronic Assessment and plan: See plan of care listed below. Current Visit: Yes Qualifiers: Hypertension type: essential hypertension Qualified Code(s): I10 - Essential (primary) hypertension (4) HLD (hyperlipidemia) Status: Chronic Assessment and plan: See plan of care listed below. Current Visit: Yes (5) Diabetes mellitus Status: Chronic Assessment and plan: See plan of care listed below. Current Visit: Yes Qualifiers: Diabetes mellitus type: type 2 Cardiology - PN: Subj Interval history: Skilled Nursing Facilities Professional: Dr. Guaman SUMMARY: Mr. Arvizu is a 72 year old male who was admitted as an outpatient on 07/22/17 for left heart catheterization due to symptoms of exertional angina and abnormal nuclear stress test suggesting cardiac ischemia. He has a history of hypertension, hyperlipidemia, and diabetes. Heart catheterization on 07/22/17 revealed significant left main and severe right coronary artery disease with preserved left ventricular systolic function and normal left subclavian/left internal mammary artery. CV surgery was consulted to see him. Recent echocardiogram done on 07/16/17 revealed EF 55%, normal diastolic function, mild LVH, trace MR, trace [place]. On 07/25/17, he underwent coronary artery bypass grafting x3 with a left internal mammary graft to the anterior descending coronary artery and saphenous vein graft to the obtuse marginal and to the right coronary arteries. He is doing well post operatively. His troponins have trended down appropriately. JULY 31, 2017 UPDATE: Mr. Arvizu is post op day #6. He is doing well. He complains of being a little sore but is overall feeling well and is in good spirits. His sternal incision and lower extremity incisions look good. He has been ambulating around his room and in the sharp today without difficulty and reports he felt well afterwards. His labs and vital signs have been stable. He is tolerating his current medication regimen without difficulty. Hopefully he will be ready for discharge soon. ASSESSMENT/PLAN: 1. S/P CABG X2 - On 07/25/17, he underwent coronary artery bypass grafting x3 with a left internal mammary graft to the anterior descending coronary artery and saphenous vein graft to the obtuse marginal and to the right coronary arteries. Will continue to monitor. 2. CORONARY ARTERY DISEASE - Heart catheterization on 07/22/17 revealed significant left main and severe right coronary artery disease with preserved left ventricular systolic function and normal left subclavian/left internal mammary artery. Continue aspirin, statin, beta karley, and ARB. 3. HYPERTENSION - Currently well controlled. Will continue to monitor and adjust accordingly. 4. HYPERLIPIDEMIA - Continue lipid lowering agent. Lipid panel revealed triglycerides 60, cholesterol 151, LDL 82, HDL 55. 5. DIABETES MELLITUS - He has been started on accuchecks ACHS with sliding scale coverage. Exam (Progress Note) - Constitutional Vitals: Period Temp Pulse Resp BP Sys/Baltazar Pulse Ox Last 24 Hr 96.9 F-98.7 F 71-78 16-20 113-137/63-89 87-95 Exam: General: Present: Appears Well, No Apparent Distress. Pleasant and cooperative. HEENT: Present: PERRL, Normocephaly, atraumatic. Mucus Membranes Moist. No jaundice noted. Conjunctiva moist and clear. Neck: Present: Supple Neck, Midline Trachea, No Masses, No Bruit, No tenderness Cardiac: Present: Regular Rate and Rhythm, No Murmur Lungs: Present: clear to auscultation bilaterally, no wheezes, rhonchi, rales. Neuro: Present: Awake, alert, and oriented x3. Moves all extremities well without hemiparesis or paralysis. Grossly Intact. Absent: Resting Tremor, Essential Tremor Abdomen: Present: Soft, Active Bowel Sounds, No Masses, Non-Tender, nondistended. No abdominal bruit or thrill noted. Skin: Present: Clear. Midline sternal incision well approximated, clean, and dry. Bilateral lower extremity medial incisions well approximated with rae intact, clean and dry. Absent: Rash, No skin breakdown. Back: Normal inspection, no vertebral tenderness. Musculoskeletal: Present: No Fluid Collection, No Pain, Normal Range of Motion Extremities: Present: Normal Gait, No Clubbing, No Cyanosis, Upper Extr. Pulses 2+, Lower Extr. Pulses 2+, Mild lower extremity edema. Capillary refill less than 3 seconds. Result/EKG - Labs CBC & BMP: 07/31/17 06:10 07/31/17 06:10 Lab Results: I have reviewed the past 24 hour labs Labs: Laboratory Results - last 24 hr 07/30/17 07/30/17 07/30/17 11:18 15:15 17:22 WBC RBC Hgb Hct MCV MCH MCHC RDW Plt Count MPV Neut % (Auto) Lymph % (Auto) [place] % (Auto) Eos % (Auto) Baso % (Auto) Neut # (Auto) Lymph # (Auto) [place] # (Auto) Eos # (Auto) Baso # (Auto) Immature Gran % Nucleated RBC % Immature Gran # Nucleated RBCs # Immature Plt Fraction Sodium Potassium Chloride Carbon Dioxide Anion Gap BUN Creatinine GFR Calculation BUN/Creatinine Ratio Glucose POC Glucose 176 H 146 H Calculated Osmolality Calcium Magnesium Total Bilirubin Direct Bilirubin Indirect Bilirubin AST ALT Alkaline Phosphatase Total Creatine Kinase CK-MB (CK-2) Troponin I Total Protein Albumin Globulin Albumin/Globulin Ratio Vancomycin Trough 13.5 07/30/17 07/31/17 07/31/17 19:32 06:10 06:10 WBC 10.3 RBC 3.15 L Hgb 9.6 L Hct 28.6 L MCV 90.8 MCH 31 MCHC 33.6 RDW 13.9 Plt Count 196 D MPV 12.7 H Neut % (Auto) 63.8 Lymph % (Auto) 22.0 [place] % (Auto) 11.1 Eos % (Auto) 2.0 Baso % (Auto) 0.3 Neut # (Auto) 6.6 Lymph # (Auto) 2.3 [place] # (Auto) 1.1 H Eos # (Auto) 0.2 Baso # (Auto) 0.0 Immature Gran % 0.8 Nucleated RBC % 0.9 Immature Gran # 0.08 Nucleated RBCs # 0.09 Immature Plt Fraction 0.0 Sodium 138 Potassium 4.1 Chloride 105 Carbon Dioxide 26 Anion Gap 11.1 BUN 19 H Creatinine 0.80 GFR Calculation 122 BUN/Creatinine Ratio 23.00 H Glucose 133 H POC Glucose 192 H Calculated Osmolality 278.7 Calcium 8.2 L Magnesium 2.0 Total Bilirubin 0.60 Direct Bilirubin 0.150 Indirect Bilirubin 0.5 AST 77 H ALT 101 H Alkaline Phosphatase 72 Total Creatine Kinase 415 H D CK-MB (CK-2) 2.3 Troponin I 8.250 H D Total Protein 5.6 L Albumin 2.9 L Globulin 2.7 Albumin/Globulin Ratio 1.0 L Vancomycin Trough 07/31/17 07:48 WBC RBC Hgb Hct MCV MCH MCHC RDW Plt Count MPV Neut % (Auto) Lymph % (Auto) [place] % (Auto) Eos % (Auto) Baso % (Auto) Neut # (Auto) Lymph # (Auto) [place] # (Auto) Eos # (Auto) Baso # (Auto) Immature Gran % Nucleated RBC % Immature Gran # Nucleated RBCs # Immature Plt Fraction Sodium Potassium Chloride Carbon Dioxide Anion Gap BUN Creatinine GFR Calculation BUN/Creatinine Ratio Glucose POC Glucose 189 H Calculated Osmolality Calcium Magnesium Total Bilirubin Direct Bilirubin Indirect Bilirubin AST ALT Alkaline Phosphatase Total Creatine Kinase CK-MB (CK-2) Troponin I Total Protein Albumin Globulin Albumin/Globulin Ratio Vancomycin Trough - EKG EKG results: interpreted by me, sinus rhythm Quality Measures - VTE Contraindication to Pharmacological VTE Prophylaxis: High Risk of Bleeding Specialty Discharge - Follow Up or Referrals Follow up with: Naeem Parekh MD [Physician] - 08/26/17 10:00 am
--- NOTE | 2017-07-31 16:24 | Sleep Medicine Progress Note ---
Assessment and Plan (1) Obstructive sleep apnea Status: Acute Assessment and plan: Patient is doing very well on CPAP. He will be scheduled for follow-up in sleep clinic after discharge for compliance check. Anticipate good results for him. He is done very well during his hospital course with CPAP. Current Visit: Yes Sleep Medicine Subjective Interval history: Patient continues to get better on CPAP nightly. He slept with CPAP almost 8 hours last night and had an average AHI of 0.5. Average device pressure was 16 cm. We will go ahead and prescribe an auto CPAP machine for him to have at discharge. He will be seen for follow-up in the sleep clinic. Thank you for this consult and the opportunity to participate in his care. Exam (Progress Note) - Constitutional Vitals: Period Temp Pulse Resp BP Sys/Baltazar Pulse Ox Last 24 Hr 96.9 F-98.3 F 71-78 16-18 126-137/67-89 87-95 Exam: He is alert and responsive in no acute distress. HEENT unremarkable. Neck supple without adenopathy. Chest with good air movement and no significant wheeze or rhonchi. Cardiac exam reveals a regular rhythm. Abdomen soft nontender extremities without calf tenderness. Neurologically, he is grossly intact. Results - Labs CBC & BMP: 07/31/17 06:10 07/31/17 06:10 Lab Results: I have reviewed the past 24 hour labs Specialty Discharge - Follow Up or Referrals Follow up with: Naeem Parekh MD [Physician] - 08/26/17 10:00 am
[2017-08-01] MEDS: oxyCODONE/ACETAMINOPHEN 5-325 MG TABLET PO PRN ×2 (04:50→21:02)
[2017-08-01 06:04] LABS: Basophils % 0.3 % (0.0-0.8); Eosinophils # 0.2 10*3/uL (0.0-0.87); Hematocrit 28.7 VOL% (42.0-52.0); Hemoglobin 9.7 GM/DL (14.0-18.0); Immature Granulocytes % 1.1 %; Immature Granulocytes Absolute 0.13 #; Lymphocytes # 2.6 10*3/uL (1.4-4.0); Lymphocytes % 22.4 % (21.2-54.2); Mean Corpuscular HGB Conc 33.8 GM/DL (32-36); Mean Corpuscular Hemoglobin 30 PG (27-34); Mean Platelet Volume 12.1 FL (9.6-12.0); Monocytes # 1.3 10*3/uL (0.11-0.8); Monocytes % 11.3 % (1.7-12.7); Neutrophils # 7.3 10*3/uL (1.4-7.4); Neutrophils % 62.9 % (38.7-73.9); Platelet Count 258 T/CUMM (130-400); Red Blood Count 3.19 MC/CUMM (3.8-5.5); Red Cell Distribution Width 14.1 % (9.3-17.3); White Blood Count 11.6 T/CUMM (4-12)
--- NOTE | 2017-08-01 06:21 | Cardiothoracic Progress Note ---
Cardiothoracic Subjective Interval history: Patient had a comfortable night. He is breathing comfortably and his vital signs have been stable. He is increasing his activity during the daytime. Overall his progress is satisfactory and I think he will be ready for discharge in the morning. Exam (Progress Note) - Constitutional Vitals: Period Temp Pulse Resp BP Sys/Baltazar Pulse Ox Last 24 Hr 96.9 F-98.9 F 73-79 16-20 126-144/67-78 92-95 Result/EKG - Labs CBC & BMP: 08/01/17 05:29 07/31/17 06:10 Labs: Laboratory Results - last 24 hr 07/31/17 07/31/17 07/31/17 06:10 06:10 07:48 WBC 10.3 RBC 3.15 L Hgb 9.6 L Hct 28.6 L MCV 90.8 MCH 31 MCHC 33.6 RDW 13.9 Plt Count 196 D MPV 12.7 H Neut % (Auto) 63.8 Lymph % (Auto) 22.0 [place] % (Auto) 11.1 Eos % (Auto) 2.0 Baso % (Auto) 0.3 Neut # (Auto) 6.6 Lymph # (Auto) 2.3 [place] # (Auto) 1.1 H Eos # (Auto) 0.2 Baso # (Auto) 0.0 Immature Gran % 0.8 Nucleated RBC % 0.9 Immature Gran # 0.08 Nucleated RBCs # 0.09 Immature Plt Fraction 0.0 Sodium 138 Potassium 4.1 Chloride 105 Carbon Dioxide 26 Anion Gap 11.1 BUN 19 H Creatinine 0.80 GFR Calculation 122 BUN/Creatinine Ratio 23.00 H Glucose 133 H POC Glucose 189 H Calculated Osmolality 278.7 Calcium 8.2 L Magnesium 2.0 Total Bilirubin 0.60 Direct Bilirubin 0.150 Indirect Bilirubin 0.5 AST 77 H ALT 101 H Alkaline Phosphatase 72 Total Creatine Kinase 415 H D CK-MB (CK-2) 2.3 Troponin I 8.250 H D Total Protein 5.6 L Albumin 2.9 L Globulin 2.7 Albumin/Globulin Ratio 1.0 L 07/31/17 07/31/17 07/31/17 11:22 16:53 19:51 WBC RBC Hgb Hct MCV MCH MCHC RDW Plt Count MPV Neut % (Auto) Lymph % (Auto) [place] % (Auto) Eos % (Auto) Baso % (Auto) Neut # (Auto) Lymph # (Auto) [place] # (Auto) Eos # (Auto) Baso # (Auto) Immature Gran % Nucleated RBC % Immature Gran # Nucleated RBCs # Immature Plt Fraction Sodium Potassium Chloride Carbon Dioxide Anion Gap BUN Creatinine GFR Calculation BUN/Creatinine Ratio Glucose POC Glucose 132 H 171 H 203 H Calculated Osmolality Calcium Magnesium Total Bilirubin Direct Bilirubin Indirect Bilirubin AST ALT Alkaline Phosphatase Total Creatine Kinase CK-MB (CK-2) Troponin I Total Protein Albumin Globulin Albumin/Globulin Ratio 08/01/17 05:29 WBC 11.6 RBC 3.19 L Hgb 9.7 L Hct 28.7 L MCV 90.0 MCH 30 MCHC 33.8 RDW 14.1 Plt Count 258 D MPV 12.1 H Neut % (Auto) 62.9 Lymph % (Auto) 22.4 [place] % (Auto) 11.3 Eos % (Auto) 2.0 Baso % (Auto) 0.3 Neut # (Auto) 7.3 Lymph # (Auto) 2.6 [place] # (Auto) 1.3 H Eos # (Auto) 0.2 Baso # (Auto) 0.0 Immature Gran % 1.1 Nucleated RBC % 0.9 Immature Gran # 0.13 Nucleated RBCs # 0.10 Immature Plt Fraction 0.0 Sodium Potassium Chloride Carbon Dioxide Anion Gap BUN Creatinine GFR Calculation BUN/Creatinine Ratio Glucose POC Glucose Calculated Osmolality Calcium Magnesium Total Bilirubin Direct Bilirubin Indirect Bilirubin AST ALT Alkaline Phosphatase Total Creatine Kinase CK-MB (CK-2) Troponin I Total Protein Albumin Globulin Albumin/Globulin Ratio Quality Measures - VTE Contraindication to Pharmacological VTE Prophylaxis: High Risk of Bleeding Specialty Discharge - Follow Up or Referrals Follow up with: Naeem Parekh MD [Physician] - 08/26/17 10:00 am
[2017-08-01 06:36] LABS: Alanine Aminotransferase 92 U/L (16-61); Albumin 2.9 G/DL (3.4-5.0); Alkaline Phosphatase 73 U/L (45-117); Aspartate Amino Transferase 49 U/L (0-37); Bilirubin,Indirect 1.2 MG/DL (0.0-1.0); Blood Urea Nitrogen 16 MG/DL (7-18); Calcium 8.5 MG/DL (8.5-10.1); Glucose 133 MG/DL (74-106); Osmolality,Calculated 279.5 MOS/KG (273-304); Potassium 4.4 MMOL/L (3.5-5.1); Sodium 139 MMOL/L (136-145); Total Protein 5.7 G/DL (6.4-8.3)
--- NOTE | 2017-08-01 07:39 | EKG Report ---
Stationary ECG Study [facility] Test Date: 08/01/2017 7:37:47 AM Pat Name: LILIANA CORTES Department: Room: 270 Gender: M Tetryl Screen Operator: RIVAS : 1945 Requested by: Naeem Barnes Order Number: [id number] Manfred MD: KATHLEEN URIAS Intervals [place] Rate: 71 P: 52 WV: 174 QRS: 12 QRSD: 103 T: -42 QT: 407 QTc: 429 Interpretive Statements SINUS RHYTHM INFERIOR MYOCARDIAL INFARCTION, OF INDETERMINATE AGE Electronically Signed On 08-01-17 15:57:42 CDT by KATHLEEN URIAS [email or web address]
--- NOTE | 2017-08-01 09:18 | XRay Report ---
XR chest 2V Date: 08/01/2017 4:00 AM History: Shortness of breath Comparison: 07/31/2017 Technique: PA and lateral chest Findings: The heart is normal in size with prior median sternotomy. Stable right IJ CVP line. No pneumothorax with persistent minimal atelectasis/edema at the lung bases with small pleural effusions. Impression: Recent median sternotomy with persistent minimal atelectasis/edema at the lung bases with small pleural effusions. PROCEDURE INTERPRETED AT [facility] DEPARTMENT OF RADIOLOGY Final Report Signed by: Dr. Rossana Garcia
[2017-08-01] MEDS: ATORVASTATIN 40 MG TABLET PO SCH (09:25)
[2017-08-01] MEDS: metFORMIN 500 MG TABLET PO SCH ×2 (09:25→21:02)
[2017-08-01] MEDS: PANTOPRAZOLE 40 MG TABLET PO SCH (09:25)
[2017-08-01] MEDS: FERROUS SULFATE 325 MG TABLET PO SCH (09:25)
[2017-08-01] MEDS: ASCORBIC ACID 500 MG TABLET PO SCH ×2 (09:26→21:02)
[2017-08-01] MEDS: ASPIRIN 325 MG TABLET PO SCH (09:26)
[2017-08-01] MEDS: amLODIPine 5 MG TABLET PO SCH (09:26)
[2017-08-01] MEDS: CARVEDILOL 6.25 MG TABLET PO SCH ×2 (09:27→21:02)
[2017-08-01] MEDS: LOSARTAN 25 MG TABLET PO SCH (09:27)
[2017-08-01] MEDS: DOCUSATE SODIUM 100 MG CAPSULE PO SCH (09:28)
[2017-08-01] MEDS: CHLORHEXIDINE 0.12% ORAL RINSE 60 ML BOTTLE SWISH/SPIT SCH ×2 (09:28→21:04)
--- NOTE | 2017-08-01 10:24 | Cardiology Progress Note ---
Assessment and Plan - Time spent with patient Time spent with patient: Less than 30 minutes (1) S/P CABG x 3 Status: Acute Assessment and plan: See plan of care listed below. Current Visit: Yes (2) Coronary artery disease Status: Chronic Assessment and plan: See plan of care listed below. Current Visit: Yes Qualifiers: Coronary Disease-Associated Artery/Lesion type: bypass graft [place] vs. transplanted heart: [place] heart Associated angina: without angina Qualified Code(s): I25.810 - Atherosclerosis of coronary artery bypass graft(s) without angina pectoris (3) Hypertension Status: Chronic Assessment and plan: See plan of care listed below. Current Visit: Yes Qualifiers: Hypertension type: essential hypertension Qualified Code(s): I10 - Essential (primary) hypertension (4) HLD (hyperlipidemia) Status: Chronic Assessment and plan: See plan of care listed below. Current Visit: Yes (5) Diabetes mellitus Status: Chronic Assessment and plan: See plan of care listed below. Current Visit: Yes Qualifiers: Diabetes mellitus type: type 2 Cardiology - PN: Subj Interval history: Demand Planning Analyst: Dr. Guaman SUMMARY: Mr. Arvizu is a 72 year old male who was admitted as an outpatient on 07/22/17 for left heart catheterization due to symptoms of exertional angina and abnormal nuclear stress test suggesting cardiac ischemia. He has a history of hypertension, hyperlipidemia, and diabetes. Heart catheterization on 07/22/17 revealed significant left main and severe right coronary artery disease with preserved left ventricular systolic function and normal left subclavian/left internal mammary artery. CV surgery was consulted to see him. Recent echocardiogram done on 07/16/17 revealed EF 55%, normal diastolic function, mild LVH, trace MR, trace [place]. On 07/25/17, he underwent coronary artery bypass grafting x3 with a left internal mammary graft to the anterior descending coronary artery and saphenous vein graft to the obtuse marginal and to the right coronary arteries. He is doing well post operatively. His troponins have trended down appropriately. 2016 UPDATE: Mr. Arvizu is post op day #7. He is doing well. His sternal incision and lower extremity incisions look good. He has been ambulating around his room and in the sharp without difficulty. His labs and vital signs have been stable. He is tolerating his current medication regimen without difficulty. He is planned for discharge home tomorrow. He reports his son is taking some time off from work to stay with him for several weeks. ASSESSMENT/PLAN: 1. S/P CABG X2 - On 07/25/17, he underwent coronary artery bypass grafting x3 with a left internal mammary graft to the anterior descending coronary artery and saphenous vein graft to the obtuse marginal and to the right coronary arteries. Will continue to monitor. 2. CORONARY ARTERY DISEASE - Heart catheterization on 07/22/17 revealed significant left main and severe right coronary artery disease with preserved left ventricular systolic function and normal left subclavian/left internal mammary artery. Continue aspirin, statin, beta karley, and ARB. 3. HYPERTENSION - Currently well controlled. Will continue to monitor and adjust accordingly. 4. HYPERLIPIDEMIA - Continue lipid lowering agent. Lipid panel revealed triglycerides 60, cholesterol 151, LDL 82, HDL 55. 5. DIABETES MELLITUS - He has been started on accuchecks ACHS with sliding scale coverage. Exam (Progress Note) - Constitutional Vitals: Period Temp Pulse Resp BP Sys/Baltazar Pulse Ox Last 24 Hr 96.9 F-98.9 F 70-79 16-20 126-144/70-78 92-97 Exam: General: Present: Appears Well, No Apparent Distress. Pleasant and cooperative. HEENT: Present: PERRL, Normocephaly, atraumatic. Mucus Membranes Moist. No jaundice noted. Conjunctiva moist and clear. Neck: Present: Supple Neck, Midline Trachea, No Masses, No Bruit, No tenderness Cardiac: Present: Regular Rate and Rhythm, No Murmur Lungs: Present: clear to auscultation bilaterally, no wheezes, rhonchi, rales. Neuro: Present: Awake, alert, and oriented x3. Moves all extremities well without hemiparesis or paralysis. Grossly Intact. Absent: Resting Tremor, Essential Tremor Abdomen: Present: Soft, Active Bowel Sounds, No Masses, Non-Tender, nondistended. No abdominal bruit or thrill noted. Skin: Present: Clear. Midline sternal incision well approximated, clean, and dry. Bilateral lower extremity medial incisions well approximated with rae intact, clean and dry. Absent: Rash, No skin breakdown. Back: Normal inspection, no vertebral tenderness. Musculoskeletal: Present: No Fluid Collection, No Pain, Normal Range of Motion Extremities: Present: Normal Gait, No Clubbing, No Cyanosis, Upper Extr. Pulses 2+, Lower Extr. Pulses 2+, Mild lower extremity edema. Capillary refill less than 3 seconds. Result/EKG - Labs CBC & BMP: 08/01/17 05:29 08/01/17 05:29 Lab Results: I have reviewed the past 24 hour labs Labs: Laboratory Results - last 24 hr 07/31/17 07/31/17 07/31/17 11:22 16:53 19:51 WBC RBC Hgb Hct MCV MCH MCHC RDW Plt Count MPV Neut % (Auto) Lymph % (Auto) Perry % (Auto) Eos % (Auto) Baso % (Auto) Neut # (Auto) Lymph # (Auto) Perry # (Auto) Eos # (Auto) Baso # (Auto) Immature Gran % Nucleated RBC % Immature Gran # Nucleated RBCs # Immature Plt Fraction Sodium Potassium Chloride Carbon Dioxide Anion Gap BUN Creatinine GFR Calculation BUN/Creatinine Ratio Glucose POC Glucose 132 H 171 H 203 H Calculated Osmolality Calcium Magnesium Total Bilirubin Direct Bilirubin Indirect Bilirubin AST ALT Alkaline Phosphatase Total Creatine Kinase CK-MB (CK-2) Troponin I Total Protein Albumin Globulin Albumin/Globulin Ratio 08/01/17 08/01/17 08/01/17 05:29 05:29 07:59 WBC 11.6 RBC 3.19 L Hgb 9.7 L Hct 28.7 L MCV 90.0 MCH 30 MCHC 33.8 RDW 14.1 Plt Count 258 D MPV 12.1 H Neut % (Auto) 62.9 Lymph % (Auto) 22.4 Perry % (Auto) 11.3 Eos % (Auto) 2.0 Baso % (Auto) 0.3 Neut # (Auto) 7.3 Lymph # (Auto) 2.6 Perry # (Auto) 1.3 H Eos # (Auto) 0.2 Baso # (Auto) 0.0 Immature Gran % 1.1 Nucleated RBC % 0.9 Immature Gran # 0.13 Nucleated RBCs # 0.10 Immature Plt Fraction 0.0 Sodium 139 Potassium 4.4 Chloride 105 Carbon Dioxide 25 Anion Gap 13.4 BUN 16 Creatinine 0.80 GFR Calculation 122 BUN/Creatinine Ratio 20.00 Glucose 133 H POC Glucose 151 H Calculated Osmolality 279.5 Calcium 8.5 Magnesium 2.0 Total Bilirubin 1.40 H Direct Bilirubin 0.170 Indirect Bilirubin 1.2 H AST 49 H ALT 92 H Alkaline Phosphatase 73 Total Creatine Kinase 295 D CK-MB (CK-2) 2.4 Troponin I 4.890 H D Total Protein 5.7 L Albumin 2.9 L Globulin 2.8 Albumin/Globulin Ratio 1.0 L - EKG EKG results: interpreted by me, sinus rhythm Quality Measures - VTE Contraindication to Pharmacological VTE Prophylaxis: High Risk of Bleeding Specialty Discharge - Follow Up or Referrals Follow up with: Naeem Parekh MD [Physician] - 08/26/17 10:00 am
[2017-08-02] MEDS: oxyCODONE/ACETAMINOPHEN 5-325 MG TABLET PO PRN (03:48)
[2017-08-02] MEDS: ASPIRIN 325 MG TABLET PO SCH (09:02)
[2017-08-02] MEDS: ASCORBIC ACID 500 MG TABLET PO SCH (09:02)
[2017-08-02] MEDS: metFORMIN 500 MG TABLET PO SCH (09:03)
[2017-08-02] MEDS: CARVEDILOL 6.25 MG TABLET PO SCH (09:04)
[2017-08-02] MEDS: ATORVASTATIN 40 MG TABLET PO SCH (09:04)
[2017-08-02] MEDS: PANTOPRAZOLE 40 MG TABLET PO SCH (09:04)
[2017-08-02] MEDS: DOCUSATE SODIUM 100 MG CAPSULE PO SCH (09:04)
[2017-08-02] MEDS: LOSARTAN 25 MG TABLET PO SCH (09:05)
[2017-08-02] MEDS: CHLORHEXIDINE 0.12% ORAL RINSE 60 ML BOTTLE SWISH/SPIT SCH (09:06)
[2017-08-02] MEDS: FERROUS SULFATE 325 MG TABLET PO SCH (09:06)
[2017-08-02] MEDS: amLODIPine 5 MG TABLET PO SCH (09:06)
--- NOTE | 2017-08-02 09:21 | Discharge Summary ---
Hospital Course - Hospital Course Hospital Course: History of present illness: Patient is a 72-year-old man who presented with symptoms of increasing chest tightness and discomfort which were associated with exertion. His discomfort was relieved by rest. Because of the characteristics of typical angina the patient was advised to have cardiac catheterization and this was performed which revealed severe three-vessel coronary disease. Patient was referred for bypass surgery. Past medical history review of systems social history and family history are documented in his admission note. Hospital course: Patient was taken to surgery where bypass grafting was performed but his initial postoperative course was complicated by excessive chest tube hemorrhage which necessitated reentry for bleeding at the distal anastomosis of the right coronary bypass graft. This was corrected with single suture and the patient was returned to intensive care. He then did well for several hours but developed symptoms of heart block and hypotension. He was seen emergently and there were signs of ischemia on his EKG tracing and because of the fear of graft occlusion he was taken back to surgery where indeed the right coronary graft was found to be thrombosed. This was replaced with a new saphenous vein graft with reestablishment of sinus rhythm and normal hemodynamics. Patient's postoperative course following this was essentially uncomplicated. He seemed to have surprisingly few sequelae of his initially complicated operative and postoperative course. Patient was discharged home with instructions to return for follow-up in 1 month and discharge medications are listed below. Specialty Discharge - Follow Up or Referrals Follow up with: Naeem Parekh MD [Physician] - 1 Month Discharge Plan - Discharge Data Disposition: Disch To Home/Self Care Condition at Discharge: Stable Discharge Diet: advance to your usual diet Activity: resume usual activities as tolerated Hygiene: no restrictions Weight Bearing at Discharge: full weight bearing Driving: not until seen by doctor - Discharge Medications New oxyCODONE/ACETAMINOPHEN 5-325 [Percocet 5-325] 1 tablet PO Q4H PRN tablet PRN Reason: Pain Mild (1-3) Continue Nitroglycerin Sl Tab [Nitrostat] 0.4 mg SL Q5M PRN PRN Reason: Chest Pain Metformin HCl [Glucophage] 1,000 mg PO BID Lisinopril 20 mg PO DAILY Empagliflozin [Jardiance] 25 mg PO DAILY Aspirin Tab 325 mg PO DAILY Amlodipine/Atorvastatin [Amlodipine-Atorvast 10-40 mg] 1 each PO DAILY Tadalafil [Cialis] 5 mg PO DAILY PRN PRN Reason: Erectile Dysfunction No Action Folic Acid/Multivit-Min/Lutein [Centrum Silver Chew Tab] 1 tablet PO DAILY - Follow Up or Referral Follow Up: Naeem Parekh MD [Physician] - 08/26/17 10:00 am - Forms/Instructions Instructions: Coronary Artery Bypass Graft (DC), Heart Healthy Diet (GEN), Sternal Precautions (GEN) Exam - Constitutional Vitals: Period Temp Pulse Resp BP Sys/Baltazar Pulse Ox Last 24 Hr 96.4 F-98.9 F 67-78 16-20 137-151/74-79 93-98 Discharge Results Procedures and tests throughout hospitalization: Pending Orders 07/24/17 03:47 Fresh Frozen Plasma IN AM Red Blood Cells Leuko Red IN AM Single Donor Platelets IN AM Type and Screen IN AM Labs on day of discharge: Labs from last 24 hours 08/01/17 08/01/17 08/01/17 20:16 15:45 11:36 POC Glucose 180 H 141 H 135 H DS: Provider Date of admission: 07/24/17 13:44 Primary care physician: . No PCP Attending physician on admission: Mike Guaman MD Consults: 07/23/17 06:26 Consult to Dietitian [CONS] Routine Reason for Dietitian: Other Consult Comment: low salt, low cholesterol, diet 07/27/17 12:14 Consult to Cardiac Rehabilitation [CONS] Routine Reason for Cardiac Rehabilitation: Other Consult Comment: Post CABG/heart surgery Consult to [facility], Educator [CONS] Routine Reason for Ships Equipment Engineer: Diabetes Education Initial Insulin Education Consult Comment: insulin education Consult to Dietitian [CONS] Routine Reason for Dietitian: Dietary Consult Consult Comment: Cardiac, low salt, low cholesterol diet Consult to Physical Therapy [CONS] Routine Reason for Physical Therapy: Other Consult Comment: CV Rehab 08/01/17 17:53 Consult to Case Mgmt/Social Srvs [CONS] Routine Reason for Case Mgmt/Social Srvs: Home Health Discharging clinician: Naeem Parekh MD Expected date of discharge: 08/02/17
[2017-08-02 12:05] VITALS: BP 132/75
== END 2017-08-02 13:45 | disposition home or self-care (01) | DRG 234 ==
LOC: N.TELES 08:03 → N.CL 08:03 → N.TELES 13:40 → N.CVR 07-25 09:34 → N.ICU 07-26 15:48 → N.TELES 07-27 12:25
PROVIDERS: ADMIT Internal Medicine Cardiovascular Disease; ATTEND Internal Medicine Cardiovascular Disease
PROC: CLCCHCL (ICD-10-PCS; 2017-07-22 13:45)

== ENCOUNTER 2022-02-08 23:45 | Observation (INO) ==
[2022-02-09 00:44] LABS: Basophils % 0.5 % (0.0-0.8); Eosinophils # 0.2 10*3/uL (0.0-0.87); Eosinophils % 2.5 % (0.00-10.9); Hematocrit 45.6 VOL% (42.0-52.0); Hemoglobin 14.9 GM/DL (14.0-18.0); Immature Granulocytes % 0.2 %; Immature Granulocytes Absolute 0.01 #; Lymphocytes # 1.7 10*3/uL (1.4-4.0); Lymphocytes % 28.8 % (21.2-54.2); Mean Corpuscular HGB Conc 32.7 GM/DL (32-36); Mean Corpuscular Volume 90.7 FL (87-102); Mean Platelet Volume 11.6 FL (9.6-12.0); Monocytes % 8.8 % (1.7-12.7); Neutrophils % 59.2 % (38.7-73.9); Platelet Count 206 T/CUMM (130-400); Red Blood Count 5.03 MC/CUMM (3.8-5.5); Red Cell Distribution Width 14.6 % (9.3-17.3); White Blood Count 6.1 T/CUMM (4-12)
[2022-02-09 01:01] LABS: Albumin 3.8 G/DL (3.4-5.0); Bilirubin,Total 0.4 MG/DL (0.20-1.00); Calcium 9.5 MG/DL (8.5-10.1); Osmolality,Calculated 277.7 MOS/KG (273-304); Total Protein 7.3 G/DL (6.4-8.2)
[2022-02-09] MEDS ORDERED: ONDANSETRON 4 MG/2 ML VIAL IV PRN (02:29)
[2022-02-09] MEDS ORDERED: ACETAMINOPHEN 325 MG TABLET PO PRN (02:29)
[2022-02-09] MEDS ORDERED: ALUMINUM/MAGNES/SIMETH MAX STR 30 ML UDCUP PO PRN (02:29)
[2022-02-09] MEDS ORDERED: GLUCAGON 1 MG VIAL IM PRN (02:29)
[2022-02-09] MEDS ORDERED: ENOXAPARIN 40 MG/0.4 ML SYRINGE SUBCUT SCH (02:30)
[2022-02-09] MEDS ORDERED: DEXTROSE 10% 250 ML BAG IV PRN (02:41)
[2022-02-09] MEDS: ENOXAPARIN 40 MG/0.4 ML SYRINGE SUBCUT SCH (05:36)
[2022-02-09] MEDS ORDERED: NITROGLYCERIN SL 0.4 MG TABLET SL PRN (06:57)
[2022-02-09] MEDS: INSULIN REGULAR 100 UNIT/ML SUBCUT SCH ×4 (07:29→21:04)
[2022-02-09] MEDS: ASPIRIN EC 81 MG TABLET PO SCH (08:48)
[2022-02-09] MEDS: LOSARTAN 50 MG TABLET PO SCH (08:48)
[2022-02-09] MEDS: PANTOPRAZOLE 40 MG TABLET PO SCH (08:49)
[2022-02-09] MEDS: FINASTERIDE 5 MG TABLET PO SCH (08:50)
[2022-02-09] MEDS ORDERED: ATORVASTATIN 20 MG TABLET PO SCH (21:00)
[2022-02-09] MEDS: TAMSULOSIN 0.4 MG CAPSULE PO SCH (21:05)
[2022-02-09] MEDS: ROSUVASTATIN 20 MG TABLET PO SCH (21:50)
[2022-02-10 05:35] LABS: Basophils % 0.8 % (0.0-0.8); Eosinophils # 0.3 10*3/uL (0.0-0.87); Eosinophils % 5.5 % (0.00-10.9); Hematocrit 45.9 VOL% (42.0-52.0); Immature Granulocytes % 0.4 %; Immature Granulocytes Absolute 0.02 #; Lymphocytes # 1.9 10*3/uL (1.4-4.0); Lymphocytes % 38.1 % (21.2-54.2); Mean Corpuscular HGB Conc 32.7 GM/DL (32-36); Mean Corpuscular Volume 90.7 FL (87-102); Mean Platelet Volume 11.2 FL (9.6-12.0); Monocytes % 13.4 % (1.7-12.7); Neutrophils % 41.8 % (38.7-73.9); Platelet Count 196 T/CUMM (130-400); Red Blood Count 5.06 MC/CUMM (3.8-5.5); Red Cell Distribution Width 14.5 % (9.3-17.3); White Blood Count 4.9 T/CUMM (4-12)
[2022-02-10 05:45] LABS: Calcium 8.7 MG/DL (8.5-10.1); Osmolality,Calculated 273.8 MOS/KG (273-304); Potassium 4.4 MMOL/L (3.5-5.1)
[2022-02-10] MEDS: ENOXAPARIN 40 MG/0.4 ML SYRINGE SUBCUT SCH (05:50)
[2022-02-10 06:34] LABS: Eosinophils 10 % (0-10); Lymphocytes 43 % (20-55); Segmented Neutrophils 34 % (50-85); Total Cells Counted 100
[2022-02-10 06:35] LABS: Hypochromia 1+; Target Cells Slight
[2022-02-10 06:36] LABS: Microcytosis 1+; Platelet Estimate Adequate
[2022-02-10] MEDS: PANTOPRAZOLE 40 MG TABLET PO SCH (08:09)
[2022-02-10] MEDS: INSULIN REGULAR 100 UNIT/ML SUBCUT SCH ×4 (08:09→20:39)
[2022-02-10] MEDS: ASPIRIN EC 81 MG TABLET PO SCH (09:11)
[2022-02-10] MEDS: FINASTERIDE 5 MG TABLET PO SCH (09:11)
[2022-02-10] MEDS: LOSARTAN 50 MG TABLET PO SCH (09:11)
[2022-02-10] MEDS: TAMSULOSIN 0.4 MG CAPSULE PO SCH (20:36)
[2022-02-10] MEDS: ROSUVASTATIN 20 MG TABLET PO SCH (20:36)
[2022-02-11 05:55] LABS: Basophils % 0.8 % (0.0-0.8); Eosinophils # 0.2 10*3/uL (0.0-0.87); Eosinophils % 4.9 % (0.00-10.9); Hematocrit 45.5 VOL% (42.0-52.0); Immature Granulocytes % 0.2 %; Immature Granulocytes Absolute 0.01 #; Lymphocytes # 1.8 10*3/uL (1.4-4.0); Lymphocytes % 36.3 % (21.2-54.2); Mean Corpuscular Volume 89.9 FL (87-102); Mean Platelet Volume 11.5 FL (9.6-12.0); Monocytes % 13.6 % (1.7-12.7); Neutrophils % 44.2 % (38.7-73.9); Platelet Count 196 T/CUMM (130-400); Red Blood Count 5.06 MC/CUMM (3.8-5.5); Red Cell Distribution Width 14.3 % (9.3-17.3); White Blood Count 4.9 T/CUMM (4-12)
[2022-02-11] MEDS ORDERED: SODIUM CHLORIDE 0.9% 1,000 ML IV SCH (06:00)
[2022-02-11 06:12] LABS: Calcium 8.5 MG/DL (8.5-10.1); Osmolality,Calculated 270.1 MOS/KG (273-304)
[2022-02-11] MEDS: INSULIN REGULAR 100 UNIT/ML SUBCUT SCH ×2 (08:31→12:40)
[2022-02-11] MEDS ORDERED: DIAZEPAM 5 MG TABLET PO ONE (09:00)
[2022-02-11] MEDS ORDERED: diphenhydrAMINE CAP 50 MG CAPSULE PO ONE (09:00)
[2022-02-11] MEDS ORDERED: VERAPAMIL 5 MG/2 ML VIAL ONE (09:17)
[2022-02-11] MEDS ORDERED: HEPARIN/NACL 0.9% 2 UNITS/ML 2,000 UNIT/1,000 ML BAG IV ONE (09:17)
[2022-02-11] MEDS ORDERED: LIDOCAINE 1% 20 ML VIAL ONE (09:17)
[2022-02-11] MEDS ORDERED: NITROGLYCERIN DRIP 50 MG/250 ML BOTTLE IV ONE (09:17)
[2022-02-11] MEDS: ENOXAPARIN 40 MG/0.4 ML SYRINGE SUBCUT SCH (09:33)
[2022-02-11] MEDS: LOSARTAN 50 MG TABLET PO SCH (09:34)
[2022-02-11] MEDS: PANTOPRAZOLE 40 MG TABLET PO SCH (09:34)
[2022-02-11] MEDS: FINASTERIDE 5 MG TABLET PO SCH (09:34)
[2022-02-11] MEDS: ASPIRIN EC 81 MG TABLET PO SCH (09:34)
[2022-02-11] MEDS ORDERED: MIDAZOLAM 2 MG/2 ML VIAL ONE (10:15)
[2022-02-11] MEDS ORDERED: HYDROmorphone 1 MG/1 ML SYRINGE ONE (10:16)
[2022-02-11 17:02] VITALS: BP 123/55
[2022-02-11] MEDS ORDERED: METOPROLOL TARTRATE 25 MG TABLET PO SCH (21:00)
[2022-02-12] MEDS ORDERED: ISOSORBIDE MONONITRATE 30 MG TABLET PO SCH (09:00)
[2022-02-12] MEDS ORDERED: CLOPIDOGREL 75 MG TABLET PO SCH (09:00)
== END 2022-02-11 16:30 | disposition home or self-care (01) ==
LOC: N.ED 23:45 → N.EDINP 23:45 → SUATTDRO 02-09 02:29 → N.TELES 02-09 03:26
PROVIDERS: ADMIT Internal Medicine; ATTEND Internal Medicine Geriatric Medicine

== ENCOUNTER 2022-10-30 12:24 | Observation (INO) ==
[2022-10-30 13:08] LABS: Basophils % 0.7 % (0.0-0.8); Eosinophils # 0.2 10*3/uL (0.0-0.87); Eosinophils % 3.1 % (0.00-10.9); Hematocrit 45.2 VOL% (42.0-52.0); Hemoglobin 14.8 GM/DL (14.0-18.0); Immature Granulocytes % 0.2 %; Immature Granulocytes Absolute 0.01 #; Lymphocytes # 2.1 10*3/uL (1.4-4.0); Lymphocytes % 39.1 % (21.2-54.2); Mean Corpuscular HGB Conc 32.7 GM/DL (32-36); Mean Corpuscular Volume 89.9 FL (87-102); Mean Platelet Volume 12.9 FL (9.6-12.0); Monocytes # 0.8 10*3/uL (0.11-0.8); Monocytes % 13.8 % (1.7-12.7); Neutrophils % 43.1 % (38.7-73.9); Platelet Count 171 T/CUMM (130-400); Red Blood Count 5.03 MC/CUMM (3.8-5.5); Red Cell Distribution Width 15.3 % (9.3-17.3); White Blood Count 5.5 T/CUMM (4-12)
[2022-10-30 13:50] LABS: Albumin 3.8 G/DL (3.4-5.0); Bilirubin,Total 0.8 MG/DL (0.20-1.00); Calcium 9.3 MG/DL (8.5-10.1); Osmolality,Calculated 277.7 MOS/KG (273-304); Potassium 4.5 MMOL/L (3.5-5.1); Total Protein 7.2 G/DL (6.4-8.2)
[2022-10-30] MEDS ORDERED: DOCUSATE SODIUM 100 MG CAPSULE PO PRN (15:10)
[2022-10-30] MEDS ORDERED: hydrALAZINE 20 MG/1 ML VIAL IV PRN (15:10)
[2022-10-30] MEDS ORDERED: ONDANSETRON 4 MG/2 ML VIAL IV PRN (15:10)
[2022-10-30] MEDS ORDERED: GLUCAGON 1 MG VIAL IM PRN (15:10)
[2022-10-30] MEDS ORDERED: DEXTROSE 10% 250 ML BAG IV PRN (15:10)
[2022-10-30] MEDS ORDERED: SIMETHICONE CHEW 125 MG TABLET PO PRN (15:10)
[2022-10-30] MEDS ORDERED: ACETAMINOPHEN 325 MG TABLET PO PRN (15:10)
[2022-10-30] MEDS ORDERED: LACTULOSE 20 GM/30 ML UDCUP PO PRN (15:10)
[2022-10-30] MEDS ORDERED: NITROGLYCERIN SL 0.4 MG TABLET SL PRN (15:45)
[2022-10-30 16:02] LABS: Thyroid Stimulating Hormone 1.12 uIU/ml (0.358-3.74)
[2022-10-30] MEDS: ENOXAPARIN 40 MG/0.4 ML SYRINGE SUBCUT SCH (16:49)
[2022-10-30] MEDS: INSULIN LISPRO 100 UNIT/ML SUBCUT SCH ×2 (18:10→21:38)
[2022-10-30] MEDS: MAGNESIUM CHLORIDE 64 MG TABLET PO SCH (21:38)
[2022-10-30] MEDS: ROSUVASTATIN 20 MG TABLET PO SCH (21:38)
[2022-10-30] MEDS: TAMSULOSIN 0.4 MG CAPSULE PO SCH (21:38)
[2022-10-31 06:00] LABS: Basophils % 0.8 % (0.0-0.8); Eosinophils # 0.2 10*3/uL (0.0-0.87); Eosinophils % 3.5 % (0.00-10.9); Hematocrit 39.8 VOL% (42.0-52.0); Immature Granulocytes % 0.2 %; Immature Granulocytes Absolute 0.01 #; Lymphocytes # 1.8 10*3/uL (1.4-4.0); Lymphocytes % 36.9 % (21.2-54.2); Mean Corpuscular HGB Conc 32.7 GM/DL (32-36); Mean Corpuscular Volume 91.9 FL (87-102); Mean Platelet Volume 12.4 FL (9.6-12.0); Monocytes # 0.7 10*3/uL (0.11-0.8); Monocytes % 14.5 % (1.7-12.7); Neutrophils % 44.1 % (38.7-73.9); Platelet Count 153 T/CUMM (130-400); Red Blood Count 4.33 MC/CUMM (3.8-5.5); Red Cell Distribution Width 15.3 % (9.3-17.3); White Blood Count 4.9 T/CUMM (4-12)
[2022-10-31 06:47] LABS: Albumin 3.4 G/DL (3.4-5.0); Bilirubin,Total 0.8 MG/DL (0.20-1.00); Calcium 8.7 MG/DL (8.5-10.1); Osmolality,Calculated 277.7 MOS/KG (273-304); Risk Ratio 2.93; Total Protein 6.6 G/DL (6.4-8.2)
[2022-10-31] MEDS: INSULIN LISPRO 100 UNIT/ML SUBCUT SCH ×4 (07:07→21:15)
[2022-10-31] MEDS ORDERED: METOPROLOL TARTRATE 25 MG TABLET PO SCH ×2 (09:00)
[2022-10-31] MEDS ORDERED: PANTOPRAZOLE 40 MG TABLET PO SCH ×2 (09:00)
[2022-10-31] MEDS: CLOPIDOGREL 75 MG TABLET PO SCH (09:38)
[2022-10-31] MEDS: ASPIRIN EC 81 MG TABLET PO SCH (09:38)
[2022-10-31] MEDS: DAPAGLIFLOZIN 5 MG TABLET PO SCH (09:39)
[2022-10-31] MEDS: FINASTERIDE 5 MG TABLET PO SCH (09:39)
[2022-10-31] MEDS: MAGNESIUM CHLORIDE 64 MG TABLET PO SCH ×2 (09:39→21:15)
[2022-10-31] MEDS: MULTIVITAMIN (CENTRUM) TABLET PO SCH (09:39)
[2022-10-31] MEDS: METOPROLOL TARTRATE 25 MG TABLET PO SCH ×2 (09:40→21:15)
[2022-10-31] MEDS: LOSARTAN 50 MG TABLET PO SCH (09:40)
[2022-10-31] MEDS: ISOSORBIDE MONONITRATE 30 MG TABLET PO SCH (09:40)
[2022-10-31] MEDS: ASCORBIC ACID 500 MG TABLET PO SCH ×2 (13:33→21:15)
[2022-10-31] MEDS: ENOXAPARIN 40 MG/0.4 ML SYRINGE SUBCUT SCH (15:52)
[2022-10-31] MEDS: ROSUVASTATIN 20 MG TABLET PO SCH (21:15)
[2022-10-31] MEDS: TAMSULOSIN 0.4 MG CAPSULE PO SCH (21:15)
[2022-11-01] MEDS ORDERED: PANTOPRAZOLE 40 MG TABLET PO SCH (06:30)
[2022-11-01 06:34] LABS: Basophils % 0.6 % (0.0-0.8); Eosinophils # 0.1 10*3/uL (0.0-0.87); Eosinophils % 2.4 % (0.00-10.9); Hematocrit 41.2 VOL% (42.0-52.0); Hemoglobin 13.1 GM/DL (14.0-18.0); Immature Granulocytes % 0.4 %; Immature Granulocytes Absolute 0.02 #; Lymphocytes # 1.5 10*3/uL (1.4-4.0); Lymphocytes % 30.3 % (21.2-54.2); Mean Corpuscular HGB Conc 31.8 GM/DL (32-36); Mean Corpuscular Volume 91.4 FL (87-102); Mean Platelet Volume 12.7 FL (9.6-12.0); Monocytes # 0.7 10*3/uL (0.11-0.8); Monocytes % 13.1 % (1.7-12.7); Neutrophils % 53.2 % (38.7-73.9); Platelet Count 141 T/CUMM (130-400); Red Blood Count 4.51 MC/CUMM (3.8-5.5); Red Cell Distribution Width 15.1 % (9.3-17.3)
[2022-11-01 06:47] LABS: Calcium 8.7 MG/DL (8.5-10.1); Osmolality,Calculated 282.4 MOS/KG (273-304); Potassium 4.5 MMOL/L (3.5-5.1)
[2022-11-01] MEDS ORDERED: METOPROLOL TARTRATE 50 MG TABLET PO SCH (09:00)
[2022-11-01] MEDS: INSULIN LISPRO 100 UNIT/ML SUBCUT SCH ×2 (09:04→13:39)
[2022-11-01] MEDS: MULTIVITAMIN (CENTRUM) TABLET PO SCH (09:17)
[2022-11-01] MEDS: ASPIRIN EC 81 MG TABLET PO SCH (09:17)
[2022-11-01] MEDS: DAPAGLIFLOZIN 5 MG TABLET PO SCH (09:17)
[2022-11-01] MEDS: ISOSORBIDE MONONITRATE 30 MG TABLET PO SCH (09:17)
[2022-11-01] MEDS: LOSARTAN 50 MG TABLET PO SCH (09:17)
[2022-11-01] MEDS: FINASTERIDE 5 MG TABLET PO SCH (09:18)
[2022-11-01] MEDS: CLOPIDOGREL 75 MG TABLET PO SCH (09:18)
[2022-11-01] MEDS: ASCORBIC ACID 500 MG TABLET PO SCH (09:18)
[2022-11-01] MEDS: MAGNESIUM CHLORIDE 64 MG TABLET PO SCH (09:18)
[2022-11-01 13:28] VITALS: BP 138/83
[2022-11-01] MEDS ORDERED: METOPROLOL TARTRATE 25 MG TABLET PO SCH (21:00)
== END 2022-11-01 15:20 | disposition home or self-care (01) ==
LOC: N.EDINP 12:24 → N.ED 12:24 → N.TELES 16:39
PROVIDERS: ADMIT Hospitalist; ATTEND Hospitalist